=== PATIENT | male | born 1950 | race Caucasian/White ===

== ENCOUNTER 2018-03-16 18:38 | Emergency (ER) | payer MEDICARE, OTHER ==
[2018-03-16] MEDS ORDERED: Sodium Chloride 0.9% 10 ML Syringe FLUSH PRN (18:58)
[2018-03-16] MEDS ORDERED: Albuterol/Ipratropium 3.0-0.5 MG/3 ML Neb Soln NEB ONE ×2 (18:58→20:08)
[2018-03-16] MEDS ORDERED: Sodium Chloride 0.9% 2.5 ML Syringe FLUSH PRN (18:58)
--- NOTE | 2018-03-16 19:04 | EDM.PDOC ---
ED HPI GENERAL MEDICAL PROBLEM - General Chief Complaint: Respiratory Problem Stated Complaint: PT HAS DIFFICULTY BREATHING Time Seen by Provider: 03/16/18 19:01 Source of Information: Reports: Patient History Limitations: Reports: No Limitations - History of Present Illness INITIAL COMMENTS - FREE TEXT/NARRATIVE: HISTORY AND PHYSICAL: History of present illness: Patient is a 67-year-old male here with complaint of cough and shortness of breath 10 days. He reports he is coughing up green phlegm. He states his chest feels sore from coughing but otherwise denies chest pain. He denies any fevers, chills, nausea, vomiting, diarrhea, abdominal pain, left arm or jaw pain, diaphoresis. He denies any smoking history or history of COPD/asthma Patient is currently satting at 89% on room air, 94% on 3L O2. Past medical history significant for diabetes and hypertension. Review of systems: As per history of present illness and below otherwise all systems reviewed and negative. Past medical history: As per history of present illness and as reviewed below otherwise noncontributory. Surgical history: As per history of present illness and as reviewed below otherwise noncontributory. Social history: No reported history of drug or alcohol abuse. Family history: As per history of present illness and as reviewed below otherwise noncontributory. Physical exam: General: Patient sitting comfortably in no acute distress and nontoxic appearing HEENT: Atraumatic, normocephalic, pupils reactive, negative for conjunctival pallor or scleral icterus, mucous membranes moist, throat clear, neck supple, nontender, trachea midline. No meningeal signs. Lungs: Breath sounds diminished with wheezing throughout all lung ugidry. breath sounds equal bilaterally, chest nontender. Heart: S1S2, regular, negative for clicks, rubs, or overt murmur. Abdomen: Soft, nondistended, nontender. Negative for masses or hepatosplenomegaly. Negative for costovertebral tenderness. Pelvis: Stable nontender. Genitourinary: Deferred. Rectal: Deferred. Extremities: Atraumatic, negative for cords or calf pain. Neurovascular unremarkable. Neuro: Awake, alert, oriented. Cranial nerves II through XII unremarkable. Cerebellum unremarkable. Motor and sensory unremarkable throughout. Exam nonfocal. Notes: Lung sounds significantly improved with second duoneb. Patient is at 92- 94% on 3L. Diagnostics: CBC, CMP, troponin, chest x-ray, EKG, Blood culture x 2, lactic acid Therapeutics: DuoNeb x 2 SoluMedrol 125mg IM 750mg Levaquin IV Prescriptions: Impression: Pneumonia, hypoxia Plan: Transferred to [facility] per Dr. Starks. Definitive disposition and diagnosis as appropriate pending reevaluation and review of above. - Related Data Allergies Allergy/AdvReac Type Severity Reaction Status Date / Time atorvastatin calcium Allergy Hives Verified 03/16/18 18:47 [From Lipitor] cefazolin sodium [From Ancef] Allergy Hives Verified 03/16/18 18:47 latex Allergy Rash Verified 03/16/18 18:47 Home Meds: Home Meds Ascorbic Acid/Bioflavonoids [Vit C-Bioflavonoids ] 1,000 mg PO QAM 06/25/14 [ History] Aspirin [[place] Chewable Aspirin] 81 mg PO QAM 06/25/14 [History] Fenofibrate Nanocrystallized [Fenofibrate] 145 mg PO BEDTIME 06/25/14 [History] Fish Oil/[place]-3 Fatty Acids [Fish Oil] 1,200 mg PO QAM 06/25/14 [History] Hydrochlorothiazide/Lisinopril [Lisinopril/HCTZ 20-12.5 MG] 1 tab PO QAM [History] amLODIPine Besylate [Amlodipine Besylate] 10 mg PO QAM 06/25/14 [History] metFORMIN [Glucophage] 1,000 mg PO BID 06/25/14 [History] Insulin Detemir [Levemir Flextouch] 36 units SUBCUT BEDTIME 06/18/16 [History] Multivitamin [Multivitamins] 1 tab PO DAILY 06/18/16 [History] Rosuvastatin Calcium 20 mg PO DAILY 06/18/16 [History] Past Medical History HEENT History: Reports: Impaired Vision Cardiovascular History: Reports: High Cholesterol, Hypertension Respiratory History: Reports: Sleep Apnea Other Respiratory History: uses BPAP Musculoskeletal History: Reports: Back Pain, Chronic Endocrine/Metabolic History: Reports: Diabetes, Type II, Obesity/BMI 30+ Hematologic History: Reports: Blood Transfusion(s) Other Hematologic History: blood transfusion following nose bleed at 10 yrs old - Infectious Disease History Infectious Disease History: Reports: Chicken Pox, Measles, Mumps - Past Surgical History Head Surgeries/Procedures: Reports: None HEENT Surgical History: Reports: Cataract Surgery, Tonsillectomy Musculoskeletal Surgical History: Reports: Arthroscopic Knee Social & Family History - Family History Family Medical History: Noncontributory - Tobacco Use Smoking Status *Q: Never Smoker Second Hand Smoke Exposure: No - Caffeine Use Caffeine Use: Reports: None - Recreational Drug Use Recreational Drug Use: No ED ROS GENERAL - Review of Systems Review Of Systems: ROS reveals no pertinent complaints other than HPI. ED EXAM, GENERAL - Physical Exam Exam: See Below (see Dictation) Course - Vital Signs Last Recorded V/S: Last Vital Signs Temp 36.9 C 03/16/18 18:53 Pulse 127 H 03/16/18 18:53 Resp 20 03/16/18 18:53 BP 158/87 H 03/16/18 18:53 Pulse Ox 89 L 03/16/18 18:53 - Orders/Labs/Meds Orders: Active Orders 24 hr Category Date Time Status EKG Documentation Completion [RC] STAT Care 03/16/18 18:53 Active RT Aerosol Therapy [RC] ASDIRECTED Care 03/16/18 18:58 Active RT Aerosol Therapy [RC] ASDIRECTED Care 03/16/18 20:08 Active Chest 1V Frontal [CR] Stat Exams 03/16/18 18:53 Taken CULTURE BLOOD [BC] Stat Lab 03/16/18 21:58 Ordered CULTURE BLOOD [BC] Stat Lab 03/16/18 21:58 Ordered LACTATE WITH REFLEX [BG] Stat Lab 03/16/18 21:58 Ordered Levofloxacin/Dextrose 5%-Water [Levaquin in D5W 750 MG/ Med 03/16/18 21:59 Ordered 150 ML] 750 mg Premix Bag 1 bag IV ONETIME Sodium Chloride 0.9% [Saline Flush] Med 03/16/18 18:58 Active 10 ml FLUSH ASDIRECTED PRN Sodium Chloride 0.9% [Saline Flush] Med 03/16/18 18:58 Active 2.5 ml FLUSH ASDIRECTED PRN Blood Culture x2 Reflex Set [OM.PC] Stat Oth 03/16/18 21:58 Ordered Saline Lock Insert [OM.PC] Stat Oth 03/16/18 18:58 Ordered Medication Orders Levofloxacin/Dextrose 750 mg/ (Premix) 150 mls @ 100 mls/hr IV ONETIME ONE Stop: 03/16/18 23:28 Sodium Chloride (Saline Flush) 10 ml FLUSH ASDIRECTED PRN PRN Reason: Keep Vein Open Last Admin: 03/16/18 20:09 Dose: 10 ml Sodium Chloride (Saline Flush) 2.5 ml FLUSH ASDIRECTED PRN PRN Reason: Keep Vein Open Last Admin: 03/16/18 20:09 Dose: 2.5 ml Labs: Laboratory Tests 03/16/18 03/16/18 Range/Units 19:01 19:01 WBC 7.48 (4.0-11.0) K/uL RBC 4.49 L (4.50-5.90) M/uL Hgb 14.5 (13.0-17.0) g/dL Hct 41.3 (38.0-50.0) % MCV 92.0 (80.0-98.0) fL MCH 32.3 H (27.0-32.0) pg MCHC 35.1 (31.0-37.0) g/dL RDW Std Deviation 47.1 (28.0-62.0) fl RDW Coeff of Chitra 14 (11.0-15.0) % Plt Count 187 (150-400) K/uL MPV 9.50 (7.40-12.00) fL Neut % (Auto) 75.3 (48.0-80.0) % Lymph % (Auto) 13.0 L (16.0-40.0) % [place] % (Auto) 11.6 (0.0-15.0) % Eos % (Auto) 0.0 (0.0-7.0) % Baso % (Auto) 0.1 (0.0-1.5) % Neut # (Auto) 5.6 (1.4-5.7) K/uL Lymph # (Auto) 1.0 (0.6-2.4) K/uL [place] # (Auto) 0.9 H (0.0-0.8) K/uL Eos # (Auto) 0.0 (0.0-0.7) K/uL Baso # (Auto) 0.0 (0.0-0.1) K/uL Nucleated RBC % 0.0 /100WBC Nucleated RBCs # 0 K/uL Sodium 136 (136-148) mmol/L Potassium 4.3 (3.5-5.1) mmol/L Chloride 98 (98-107) mmol/L Carbon Dioxide 26.5 (21.0-32.0) mmol/L BUN 17 (7.0-18.0) mg/dL Creatinine 1.5 H (0.8-1.3) mg/dL Est Cr Clr Drug Dosing 50.02 mL/min Estimated GFR (MDRD) 46.8 ml/min Glucose 229 H (74-106) mg/dL Calcium 9.6 (8.5-10.1) mg/dL Total Bilirubin 0.7 (0.2-1.0) mg/dL AST 64 H (15-37) IU/L ALT 44 (14-63) IU/L Alkaline Phosphatase 29 L (46-116) U/L Troponin I < 0.050 (0.000-0.056) ng/mL Total Protein 7.9 (6.4-8.2) g/dL Albumin 3.6 (3.4-5.0) g/dL Globulin 4.3 H (2.0-3.5) g/dL Albumin/Globulin Ratio 0.8 L (1.3-2.8) Meds: Medications Generic Name Dose Route Start Last Admin Trade Name Freq PRN Reason Stop Dose Admin Levofloxacin/Dextrose 750 mg/ 150 mls @ 100 mls/hr 03/16/18 21:59 Premix IV 03/16/18 23:28 ONETIME ONE Sodium Chloride 10 ml 03/16/18 18:58 03/16/18 20:09 Saline Flush FLUSH 10 ml ASDIRECTED PRN Administration Keep Vein Open Sodium Chloride 2.5 ml 03/16/18 18:58 03/16/18 20:09 Saline Flush FLUSH 2.5 ml ASDIRECTED PRN Administration Keep Vein Open Discontinued Medications Generic Name Dose Route Start Last Admin Trade Name Freq PRN Reason Stop Dose Admin Albuterol/Ipratropium 3 ml 03/16/18 18:58 03/16/18 19:00 Duoneb 3.0-0.5 Mg/3 Ml NEB 03/16/18 18:59 3 ml ONETIME ONE Administration Albuterol/Ipratropium 3 ml 03/16/18 20:08 03/16/18 20:26 Duoneb 3.0-0.5 Mg/3 Ml NEB 03/16/18 20:09 3 ml ONETIME ONE Administration Levofloxacin 750 mg 03/16/18 21:46 Levaquin PO 03/16/18 21:47 ONETIME ONE Methylprednisolone Sodium Succinate 125 mg 03/16/18 19:23 03/16/18 20:07 Solu-Medrol IM 03/16/18 19:24 125 mg ONETIME ONE Administration Departure - Departure Time of Disposition: 22:04 Disposition: DC/Tfer to Acute Hospital 02 Condition: Good Clinical Impression: Pneumonia - Discharge Information Referrals: PCP,None [Primary Care Provider] - Forms: ED Department Discharge - My Orders Last 24 Hours: My Active Orders 03/16/18 18:53 EKG Documentation Completion [RC] STAT Chest 1V Frontal [CR] Stat 03/16/18 18:58 RT Aerosol Therapy [RC] ASDIRECTED Sodium Chloride 0.9% [Saline Flush] 10 ml FLUSH ASDIRECTED PRN Sodium Chloride 0.9% [Saline Flush] 2.5 ml FLUSH ASDIRECTED PRN Saline Lock Insert [OM.PC] Stat 03/16/18 20:08 RT Aerosol Therapy [RC] ASDIRECTED 03/16/18 21:58 CULTURE BLOOD [BC] Stat CULTURE BLOOD [BC] Stat LACTATE WITH REFLEX [BG] Stat Blood Culture x2 Reflex Set [OM.PC] Stat 03/16/18 21:59 Levofloxacin/Dextrose 5%-Water [Levaquin in D5W 750 MG/150 ML] 750 mg Premix Bag 1 bag IV ONETIME - Assessment/Plan Last 24 Hours: My Active Orders 03/16/18 18:53 EKG Documentation Completion [RC] STAT Chest 1V Frontal [CR] Stat 03/16/18 18:58 RT Aerosol Therapy [RC] ASDIRECTED Sodium Chloride 0.9% [Saline Flush] 10 ml FLUSH ASDIRECTED PRN Sodium Chloride 0.9% [Saline Flush] 2.5 ml FLUSH ASDIRECTED PRN Saline Lock Insert [OM.PC] Stat 03/16/18 20:08 RT Aerosol Therapy [RC] ASDIRECTED 03/16/18 21:58 CULTURE BLOOD [BC] Stat CULTURE BLOOD [BC] Stat LACTATE WITH REFLEX [BG] Stat Blood Culture x2 Reflex Set [OM.PC] Stat 03/16/18 21:59 Levofloxacin/Dextrose 5%-Water [Levaquin in D5W 750 MG/150 ML] 750 mg Premix Bag 1 bag IV ONETIME
[2018-03-16 19:12] VITALS: BP 158/87
[2018-03-16] MEDS ORDERED: methylPREDNISolone Sodium Succinate 125 MG/2 ML SDV IM ONE (19:23)
[2018-03-16 19:44] LABS: CHLORIDE,CL 98 mmol/L (98-107); SODIUM,NA 136 mmol/L (136-148)
[2018-03-16] MEDS ORDERED: Levofloxacin 500 MG Tab PO ONE (21:46)
[2018-03-16] MEDS ORDERED: Levofloxacin/Dextrose 5%-Water 750 MG in Premix Bag 1 BAG IV ONE (21:59)
--- NOTE | 2018-03-17 10:32 | CR ---
EXAM DATE: 03/16/18 PATIENT'S AGE: 67 Patient: LARISSA CORNEJO Facility: [place], [place] Site . Site : 1950 Study: XRay Chest [id number]/24/2018 8:29:45 PM Ordering Physician: Doctor Estes Final Report: HISTORY: Chest pain and shortness of breath. COMPARISON: 06/25/2014 FINDINGS: A portable erect AP view of the chest was obtained at 2000 hours. There is new moderate rounded infiltrate in the lateral right lung base, consistent with either right middle or right lower lobe pneumonia. No pleural effusion is evident. The rest of the chest remains clear. The heart remains normal in size. The mediastinum is normal in appearance. The osseous structures are normal in appearance for the patient`s age. IMPRESSION: NEW MODERATE INFILTRATE IN THE LATERAL RIGHT LUNG BASE, CONSISTENT WITH RIGHT MIDDLE OR RIGHT LOWER LOBE PNEUMONIA. Dictated by Brian Nguyen MD @ Mar 16 2018 8:59PM (Electronic Signature) Report Signed by Proxy. PAUL
== END 2018-03-16 23:35 ==
LOC: MW.ED 18:38
DX: J18.9 Pneumonia, unspecified organism (principal); I10 Essential (primary) hypertension; E78.00 Pure hypercholesterolemia, unspecified; Z91.040 Latex allergy status; Z79.82 Long term (current) use of aspirin; Z79.899 Other long term (current) drug therapy
CPT/HCPCS: 36415; 71045; 80053; 83605; 84484; 85025; 87040; 93005; 96365; 96372; 99285; J1956; J2930; 99283; J7620-GY

== ENCOUNTER 2018-08-10 20:36 | Emergency (ER) | payer MEDICARE, OTHER ==
[2018-08-10 21:18] VITALS: BP 127/101
--- NOTE | 2018-08-10 21:19 | EDM.PDOC ---
ED HPI GENERAL MEDICAL PROBLEM - General Chief Complaint: ENT Problem Stated Complaint: PT HAS EAR INFECTION AND SORE THROAT Time Seen by Provider: 08/10/18 21:12 Source of Information: Reports: Patient History Limitations: Reports: No Limitations - History of Present Illness INITIAL COMMENTS - FREE TEXT/NARRATIVE: HISTORY AND PHYSICAL: History of present illness: Patient is a 67-year-old male who presents to the emergency room with complaints of bilateral ear pain and sore throat 2-3 days. He denies any fever , chills, chest pain, shortness of breath or cough. Denies any abdominal pain, nausea, vomiting, diarrhea or constipation. He has been eating and drinking appropriately. Has no other concerns or complaints at this time. Review of systems: As per history of present illness and below otherwise all systems reviewed and negative. Past medical history: As per history of present illness and as reviewed below otherwise noncontributory. Surgical history: As per history of present illness and as reviewed below otherwise noncontributory. Social history: See social history for further information Family history: As per history of present illness and as reviewed below otherwise noncontributory. Physical exam: General: Well-developed and well-nourished 67-year-old male. Alert and oriented. Nontoxic appearing and in no acute distress HEENT: Atraumatic, normocephalic, pupils equal and reactive bilaterally, negative for conjunctival pallor or scleral icterus, mucous membranes moist, TMs erythematous with dull light reflex and no bulging, mild erythema to the posterior oropharynx without exudate, neck supple, nontender, trachea midline. No drooling or trismus noted. No meningeal signs. No hot potato voice noted. Lungs: Clear to auscultation, breath sounds equal bilaterally, chest nontender. Heart: S1S2, regular rate and rhythm without overt murmur Abdomen: Soft, nondistended, nontender. Negative for masses or hepatosplenomegaly. Negative for costovertebral tenderness. Pelvis: Stable nontender. Genitourinary: Deferred. Rectal: Deferred. Skin: Intact, warm, dry. No lesions or rashes noted. Extremities: Atraumatic, negative for cords or calf pain. Neurovascular unremarkable. Neuro: Awake, alert, oriented. Cranial nerves II through XII unremarkable. Cerebellum unremarkable. Motor and sensory unremarkable throughout. Exam nonfocal. Notes: We'll treat the otitis media with Augmentin. Supportive care measures were reviewed and discussed. Voices understanding and is agreeable to plan of care. Denies any further questions or concerns at this time. Diagnostics: None Therapeutics: None Prescription: Augmentin Impression: Otitis media, bilateral Plan: 1. Please use Tylenol and/or Ibuprofen as needed for pain and fever management. 2. Take the antibiotic as prescribed Get plenty of Rest. Encourage fluids to prevent dehydration. 3. Please follow up with your primary care provider. Return to the ED as needed as discussed. Definitive disposition and diagnosis as appropriate pending reevaluation and review of above. - Related Data Allergies Allergy/AdvReac Type Severity Reaction Status Date / Time atorvastatin calcium Allergy Hives Verified 08/10/18 21:18 [From Lipitor] cefazolin sodium [From Ancef] Allergy Hives Verified 08/10/18 21:18 latex Allergy Rash Verified 08/10/18 21:18 Home Meds: Home Meds Ascorbic Acid/Bioflavonoids [Vit C-Bioflavonoids SA] 1,000 mg PO QAM 06/25/14 [ History] Aspirin [[place] Chewable Aspirin] 81 mg PO QAM 06/25/14 [History] Fenofibrate Nanocrystallized [Fenofibrate] 145 mg PO BEDTIME 06/25/14 [History] Fish Oil/[place]-3 Fatty Acids [Fish Oil] 1,200 mg PO QAM 06/25/14 [History] Hydrochlorothiazide/Lisinopril [Lisinopril/HCTZ 20-12.5 MG] 1 tab PO QAM [History] amLODIPine Besylate [Amlodipine Besylate] 10 mg PO QAM 06/25/14 [History] metFORMIN [Glucophage] 1,000 mg PO BID 06/25/14 [History] Insulin Detemir [Levemir Flextouch] 36 units SUBCUT BEDTIME 06/18/16 [History] Multivitamin [Multivitamins] 1 tab PO DAILY 06/18/16 [History] Rosuvastatin Calcium 20 mg PO DAILY 06/18/16 [History] Past Medical History HEENT History: Reports: Impaired Vision Cardiovascular History: Reports: High Cholesterol, Hypertension Respiratory History: Reports: Sleep Apnea Other Respiratory History: uses BPAP Musculoskeletal History: Reports: Back Pain, Chronic Endocrine/Metabolic History: Reports: Diabetes, Type II, Obesity/BMI 30+ Hematologic History: Reports: Blood Transfusion(s) Other Hematologic History: blood transfusion following nose bleed at 10 yrs old - Infectious Disease History Infectious Disease History: Reports: Chicken Pox, Measles, Mumps - Past Surgical History Head Surgeries/Procedures: Reports: None HEENT Surgical History: Reports: Cataract Surgery, Tonsillectomy Musculoskeletal Surgical History: Reports: Arthroscopic Knee Social & Family History - Family History Family Medical History: Noncontributory - Caffeine Use Caffeine Use: Reports: None ED ROS ENT - Review of Systems Review Of Systems: ROS reveals no pertinent complaints other than HPI. ED EXAM, ENT - Physical Exam Exam: See Below (See dictation) Course - Vital Signs Last Recorded V/S: Last Vital Signs Temp 97 F 08/10/18 21:10 Pulse 135 H 08/10/18 21:10 Resp 18 08/10/18 21:10 BP 127/101 H 08/10/18 21:10 Pulse Ox 95 08/10/18 21:10 Departure - Departure Time of Disposition: 21:18 Disposition: Home, Self-Care 01 Clinical Impression: Otitis media Qualifiers: Otitis media type: unspecified Laterality: bilateral Qualified Code(s): H66.93 - Otitis media, unspecified, bilateral - Discharge Information Instructions: Otitis Media, Adult, [id number] Referrals: Wei Page MD [Primary Care Provider] - Forms: ED Department Discharge Additional Instructions: The following information is given to patients seen in the emergency department who are being discharged to home. This information is to outline your options for follow-up care. We provide all patients seen in our emergency department with a follow-up referral. The need for follow-up, as well as the timing and circumstances, are variable depending upon the specifics of your emergency department visit. If you don't have a primary care physician on staff, we will provide you with a referral. We always advise you to contact your personal physician following an emergency department visit to inform them of the circumstance of the visit and for follow-up with them and/or the need for any referrals to a consulting specialist. The emergency department will also refer you to a specialist when appropriate. This referral assures that you have the opportunity for follow-up care with a specialist. All of these measure are taken in an effort to provide you with optimal care, which includes your follow-up. Under all circumstances we always encourage you to contact your private physician who remains a resource for coordinating your care. When calling for follow-up care, please make the office aware that this follow-up is from your recent emergency room visit. If for any reason you are refused follow-up, please contact the Emergency Department at and asked to speak to the emergency department charge nurse. Primary Care [address] [place] [id number] [facility] [address] [place] [id number] 1. Please use Tylenol and/or Ibuprofen as needed for pain and fever management. 2. Take the antibiotic as prescribed Get plenty of Rest. Encourage fluids to prevent dehydration. 3. Please follow up with your primary care provider. Return to the ED as needed as discussed.
== END 2018-08-10 21:25 | disposition home or self-care (01) ==
LOC: MW.ED 20:36
DX: H66.93 Otitis media, unspecified, bilateral (principal); I10 Essential (primary) hypertension; E11.9 Type 2 diabetes mellitus without complications; E66.9 Obesity, unspecified; Z91.040 Latex allergy status; Z88.1 Allergy status to other antibiotic agents; Z79.4 Long term (current) use of insulin; Z79.899 Other long term (current) drug therapy; Z98.49 Cataract extraction status, unspecified eye; Z98.890 Other specified postprocedural states
CPT/HCPCS: 99282; 99283

== ENCOUNTER 2020-01-13 04:24 | Emergency (ER) | payer MEDICARE, OTHER ==
[2020-01-13] MEDS ORDERED: Diazepam 5 MG Tab PO ONE (04:55)
[2020-01-13] MEDS ORDERED: traMADol 50 MG Tab PO ONE (04:56)
[2020-01-13] MEDS ORDERED: Acetaminophen 500 MG Tab PO ONE (04:56)
--- NOTE | 2020-01-13 05:01 | EDM.PDOC ---
ED HPI GENERAL MEDICAL PROBLEM - General Chief Complaint: Back Pain or Injury Stated Complaint: BACK PAIN Time Seen by Provider: 01/13/20 04:44 - History of Present Illness INITIAL COMMENTS - FREE TEXT/NARRATIVE: History of present illness: [] Patient presents with low back pain pain began on Friday no injuries no fever no heavy lifting he states he has occasional low back issues he has been taking Motrin off and on for the past several days with no relief he denies any difficulty with urination movement aches or worse being still makes it better. Review of systems: As per history of present illness and below otherwise all systems reviewed and negative. Past medical history: As per history of present illness and as reviewed below otherwise noncontributory. Surgical history: As per history of present illness and as reviewed below otherwise noncontributory. Social history: No reported history of drug or alcohol abuse. Family history: As per history of present illness and as reviewed below otherwise nonco ntributory. Physical exam: HEENT: Atraumatic, normocephalic, pupils reactive, negative for conjunctival pallor or scleral icterus, mucous membranes moist, throat clear, neck supple, nontender, trachea midline. Lungs: Clear to auscultation, breath sounds equal bilaterally, chest nontender. Heart: S1S2, regular, negative for clicks, rubs, or JVD. Abdomen: Soft, nondistended, nontender. Negative for masses or hepatosplenomegaly. Negative for costovertebral tenderness. Pelvis: Stable nontender. Genitourinary: Deferred. Rectal: Deferred. Extremities: Atraumatic, negative for cords or calf pain. Neurovascular unremarkable. Neuro: Awake, alert, oriented. Cranial nerves II through XII unremarkable. Cerebellum unremarkable. Motor and sensory unremarkable throughout. Exam nonfocal. There is no saddle anesthesia great toe strength is 5 out of 5 Back: There is no midline tenderness there is spasm and tenderness to the lateral musculature at L5 on the left as well as the left SI joint. Diagnostics: [] Therapeutics: [] Impression: Low back pain [] Plan: We will try some medication see for him more comfortable and reassess him. [] Definitive disposition and diagnosis as appropriate pending reevaluation and review of above. 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 CHIEF: Reports: NSAIDS lower back Pain Score (Numeric/FACES): 10 - Related Data Allergies Allergy/AdvReac Type Severity Reaction Status Date / Time atorvastatin calcium Allergy Hives Verified 01/13/20 04:45 [From Lipitor] cefazolin sodium [From Ancef] Allergy Hives Verified 01/13/20 04:45 latex Allergy Rash Verified 01/13/20 04:45 Home Meds: Home Meds Ascorbic Acid/Bioflavonoids [Vit C-Bioflavonoids SA] 1,000 mg PO QAM 06/25/14 [History] Aspirin [[place] Chewable Aspirin] 81 mg PO QAM 06/25/14 [History] Fenofibrate Nanocrystallized [Fenofibrate] 145 mg PO BEDTIME 06/25/14 [History] Fish Oil/[place]-3 Fatty Acids [Fish Oil] 1,200 mg PO QAM 06/25/14 [History] Hydrochlorothiazide/Lisinopril [Lisinopril/HCTZ 20-12.5 MG] 1 tab PO QAM 06/25/14 [History] amLODIPine Besylate [Amlodipine Besylate] 10 mg PO QAM 06/25/14 [History] metFORMIN [Glucophage] 1,000 mg PO BID 06/25/14 [History] Insulin Detemir [Levemir Flextouch] 36 units SUBCUT BEDTIME 06/18/16 [History] Multivitamin [Multivitamins] 1 tab PO DAILY 06/18/16 [History] Rosuvastatin Calcium 20 mg PO DAILY 06/18/16 [History] Cyclobenzaprine [Flexeril] 10 mg PO TID #30 tab 01/13/20 [Rx] predniSONE 60 mg PO WITHBREAKFAST 5 Days #15 tab 01/13/20 [Rx] traMADol HCl [Tramadol HCl] 50 mg PO TID #15 tablet 01/13/20 [Rx] Past Medical History HEENT History: Reports: Impaired Vision Cardiovascular History: Reports: High Cholesterol, Hypertension Respiratory History: Reports: Sleep Apnea Other Respiratory History: uses BPAP Gastrointestinal History: Reports: None Genitourinary History: Reports: None Musculoskeletal History: Reports: Back Pain, Chronic Neurological History: Reports: None Psychiatric History: Reports: None Endocrine/Metabolic History: Reports: Diabetes, Type II, Obesity/BMI 30+ Hematologic History: Reports: Blood Transfusion(s) Other Hematologic History: blood transfusion following nose bleed at 10 yrs old Immunologic History: Reports: None Oncologic (Cancer) History: Reports: None Dermatologic History: Reports: None - Infectious Disease History Infectious Disease History: Reports: None - Past Surgical History Head Surgeries/Procedures: Reports: None HEENT Surgical History: Reports: Cataract Surgery, Tonsillectomy Musculoskeletal Surgical History: Reports: Arthroscopic Knee Social & Family History - Family History Family Medical History: Noncontributory - Tobacco Use Smoking Status *Q: Never Smoker - Caffeine Use Caffeine Use: Reports: None - Recreational Drug Use Recreational Drug Use: No ED ROS GENERAL - Review of Systems Review Of Systems: See Below ED EXAM, GENERAL - Physical Exam Exam: See Below Course - Vital Signs Text/Narrative:: Patient is feeling somewhat better after medications. There is no evidence of a spinal cord or cauda equina impingement. He will be discharged home on tramadol prednisone and Flexeril. Follow-up with primary care Last Recorded V/S: Last Vital Signs Temp 36.1 C 01/13/20 04:45 Pulse 108 H 01/13/20 04:45 Resp 18 01/13/20 04:45 BP 130/78 01/13/20 04:45 Pulse Ox 95 01/13/20 04:45 - Orders/Labs/Meds Meds: Medications Discontinued Medications Generic Name Dose Route Start Last Admin Trade Name Freq PRN Reason Stop Dose Admin Acetaminophen 1,000 mg 01/13/20 04:56 01/13/20 05:03 Tylenol Extra Strength PO 01/13/20 04:57 1,000 mg ONETIME ONE Administration Diazepam 5 mg 01/13/20 04:55 01/13/20 05:03 Valium. PO 01/13/20 04:56 5 mg ONETIME ONE Administration Tramadol HCl 100 mg 01/13/20 04:56 01/13/20 05:03 Ultram PO 01/13/20 04:57 100 mg ONETIME ONE Administration Departure - Departure Time of Disposition: 06:01 Disposition: Home, Self-Care 01 Condition: Good Clinical Impression: Low back pain - Discharge Information *PRESCRIPTION DRUG MONITORING PROGRAM REVIEWED*: Not Applicable *COPY OF PRESCRIPTION DRUG MONITORING REPORT IN PATIENT ERNESTO: Not Applicable Instructions: Acute Back Pain, Adult Referrals: Wei Page MD [Primary Care Provider] - Forms: ED Department Discharge Additional Instructions: The following information is given to patients seen in the emergency department who are being discharged to home. This information is to outline your options for follow-up care. We provide all patients seen in our emergency department with a follow-up referral. The need for follow-up, as well as the timing and circumstances, are variable depending upon the specifics of your emergency department visit. If you don't have a primary care physician on staff, we will provide you with a referral. We always advise you to contact your personal physician following an emergency department visit to inform them of the circumstance of the visit and for follow-up with them and/or the need for any referrals to a consulting specialist. The emergency department will also refer you to a specialist when appropriate. This referral assures that you have the opportunity for follow-up care with a specialist. All of these measure are taken in an effort to provide you with optimal care, which includes your follow-up. Under all circumstances we always encourage you to contact your private physician who remains a resource for coordinating your care. When calling for follow-up care, please make the office aware that this follow-up is from your recent emergency room visit. If for any reason you are refused follow-up, please contact the [facility] Emergency Department at and asked to speak to the emergency department charge nurse. Sepsis Event Note (ED) - Evaluation Sepsis Screening Result: No Definite Risk - Focused Exam Vital Signs: Vital Signs Temp Pulse Resp BP Pulse Ox 01/13/20 04:45 36.1 C 108 H 18 130/78 95
[2020-01-13 06:30] VITALS: BP 120/69; PULSE 96
== END 2020-01-13 06:15 | disposition home or self-care (01) ==
LOC: MW.ED 04:24
DX: M54.5 Low back pain (principal); E11.9 Type 2 diabetes mellitus without complications; E66.9 Obesity, unspecified; Z68.33 Body mass index [BMI] 33.0-33.9, adult; E78.00 Pure hypercholesterolemia, unspecified; I10 Essential (primary) hypertension; Z88.8 Allergy status to other drugs, medicaments and biological substances; Z88.1 Allergy status to other antibiotic agents; Z91.040 Latex allergy status; Z79.82 Long term (current) use of aspirin; Z79.4 Long term (current) use of insulin; Z79.899 Other long term (current) drug therapy
CPT/HCPCS: 99283; A9270

== ENCOUNTER 2020-01-20 16:25 | Emergency (ER) | payer MEDICARE, OTHER ==
[2020-01-20] MEDS ORDERED: Sodium Chloride 0.9% 2.5 ML Syringe FLUSH PRN (16:46)
[2020-01-20] MEDS ORDERED: Sodium Chloride 0.9% 10 ML Syringe FLUSH PRN (16:46)
--- NOTE | 2020-01-20 16:48 | EDM.PDOC ---
ED HPI GENERAL MEDICAL PROBLEM - General Chief Complaint: Genitourinary Problem Stated Complaint: URINARY TROUBLE Time Seen by Provider: 01/20/20 16:35 Source of Information: Reports: Patient History Limitations: Reports: No Limitations - History of Present Illness INITIAL COMMENTS - FREE TEXT/NARRATIVE: HISTORY AND PHYSICAL: History of present illness: Patient is a 69-year-old male who presents to the emergency room with complaints of urinary retention and generalized lower abdominal pain that started this morning. He was seen in the emergency room last week for some left low back pain which he was prescribed Flexeril, prednisone and tramadol. He states his back pain has improved, although he is now wondering if these medications would cause his symptoms today. He does have a history of elevated PSA and states he will get occasional bladder infections which require Dr. Ellis to prescribe a short course of oral antibiotics. Denies any history of kidney stone or BPH. Patient denies any fever, chills, headache, change in vision, syncope or near syncope. Denies any chest pain, back pain, shortness of breath or cough. Denies any nausea, vomiting, diarrhea, constipation or dysuria. Denies any testicular pain, redness or swelling. Has not noted any blood in urine or stool. Patient has been eating and drinking appropriately. Review of systems: As per history of present illness and below otherwise all systems reviewed and negative. Past medical history: As per history of present illness and as reviewed below otherwise noncontributory. Surgical history: As per history of present illness and as reviewed below otherwise noncontributory. Social history: See social history for further information Family history: As per history of present illness and as reviewed below otherwise noncontributory. Physical exam: General: Well-developed and well-nourished 69-year-old male. Alert and oriented. Nontoxic but anxious appearing and in no acute distress. HEENT: Atraumatic, normocephalic, pupils equal and reactive bilaterally, negative for conjunctival pallor or scleral icterus, mucous membranes moist, TMs normal bilaterally, throat clear, neck supple, nontender, trachea midline. No drooling or trismus noted. No meningeal signs. No hot potato voice noted. Lungs: Clear to auscultation, breath sounds equal bilaterally, chest nontender. Heart: S1S2, regular rate and rhythm without overt murmur Abdomen: Soft, nondistended, nontender. Negative for masses or hepatosplenomegaly. Negative for costovertebral tenderness. Pelvis: Stable nontender. Skin: Intact, warm, dry. No lesions or rashes noted. Extremities: Atraumatic, moves all extremities per self without difficulty or deficits, negative for cords or calf pain. Neurovascular unremarkable. Neuro: Awake, alert, oriented. Cranial nerves II through XII unremarkable. Cerebellum unremarkable. Motor and sensory unremarkable throughout. Exam nonfocal. Notes: Due to patient appearing anxious and tachycardic I will be doing some basic lab work. CT of abdomen and pelvis to rule out obstructing stone. He shows an enlarged prostate gland measuring 7.9 x 6.3 cm. No inflammatory changes. No stone is noted. I did call Dr. Ellis our urologist concreter. He would like the catheter left in place and he will see the patient on Friday. Caleb does not want any medications rx at this time. I did share this information with the patient. He is aware and agreeable to plan of care. Patient's vital signs have improved, pulse is slightly elevated - he states he "normally runs high. He does not want me to work this up further or receive IV fluids. Requesting discharge. We discussed signs and symptoms that would prompt him to return to the emergency room. Follow-up and supportive care measures were reviewed and discussed. Voices understanding and is agreeable to plan of care. Denies any further questions or concerns at this time. Diagnostics: CBC, CMP, lactate, UA, bladder scanner, CT abdomen and pelvis Therapeutics: SL Prescription: None Impression: Urinary retention Plan: 1. Your lab work was within normal limits today. The CT did show an enlarged prostate gland. I did speak with Dr. Ellis, the urologist, who recommended that the Thomas catheter be left in place. He would like you to call his office tomorrow to set up an appointment time, he states he will see you on Friday. 2. Make sure you are emptying the Thomas catheter and doing catheter care as directed. 3. If your symptoms should worsen, new symptoms develop or any of the signs and symptoms we discussed should arise please return to the emergency room or call 911 (if needed). Definitive disposition and diagnosis as appropriate pending reevaluation and review of above. Onset: Today lower abdomen Pain Score (Numeric/FACES): 7 - Related Data Allergies Allergy/AdvReac Type Severity Reaction Status Date / Time atorvastatin calcium Allergy Hives Verified 01/20/20 16:41 [From Lipitor] cefazolin sodium [From Ancef] Allergy Hives Verified 01/20/20 16:41 latex Allergy Rash Verified 01/20/20 16:41 Home Meds: Home Meds Ascorbic Acid/Bioflavonoids [Vit C-Bioflavonoids SA] 1,000 mg PO QAM 06/25/14 [History] Aspirin [[place] Chewable Aspirin] 81 mg PO QAM 06/25/14 [History] Fenofibrate Nanocrystallized [Fenofibrate] 145 mg PO BEDTIME 06/25/14 [History] Fish Oil/[place]-3 Fatty Acids [Fish Oil] 1,200 mg PO QAM 06/25/14 [History] Hydrochlorothiazide/Lisinopril [Lisinopril/HCTZ 20-12.5 MG] 1 tab PO QAM 06/25/14 [History] amLODIPine Besylate [Amlodipine Besylate] 10 mg PO QAM 06/25/14 [History] metFORMIN [Glucophage] 1,000 mg PO BID 06/25/14 [History] Insulin Detemir [Levemir Flextouch] 36 units SUBCUT BEDTIME 06/18/16 [History] Multivitamin [Multivitamins] 1 tab PO DAILY 06/18/16 [History] Rosuvastatin Calcium 20 mg PO DAILY 06/18/16 [History] Cyclobenzaprine [Flexeril] 10 mg PO TID #30 tab 01/13/20 [Rx] predniSONE 60 mg PO WITHBREAKFAST 5 Days #15 tab 01/13/20 [Rx] traMADol HCl [Tramadol HCl] 50 mg PO TID #15 tablet 01/13/20 [Rx] Past Medical History HEENT History: Reports: Impaired Vision Cardiovascular History: Reports: High Cholesterol, Hypertension Respiratory History: Reports: Sleep Apnea Other Respiratory History: uses BPAP Gastrointestinal History: Reports: None Genitourinary History: Reports: None Musculoskeletal History: Reports: Back Pain, Chronic Neurological History: Reports: None Psychiatric History: Reports: None Endocrine/Metabolic History: Reports: Diabetes, Type II, Obesity/BMI 30+ Hematologic History: Reports: Blood Transfusion(s) Other Hematologic History: blood transfusion following nose bleed at 10 yrs old Immunologic History: Reports: None Oncologic (Cancer) History: Reports: None Dermatologic History: Reports: None - Infectious Disease History Infectious Disease History: Reports: None - Past Surgical History Head Surgeries/Procedures: Reports: None HEENT Surgical History: Reports: Cataract Surgery, Tonsillectomy Musculoskeletal Surgical History: Reports: Arthroscopic Knee Social & Family History - Family History Family Medical History: Noncontributory - Caffeine Use Caffeine Use: Reports: None ED ROS GENERAL - Review of Systems Review Of Systems: Comprehensive ROS is negative, except as noted in HPI. ED EXAM, GI/ABD - Physical Exam Exam: See Below (See dictation) Course - Vital Signs Last Recorded V/S: Last Vital Signs Temp 96.1 F L 01/20/20 16:36 Pulse 125 H 01/20/20 16:36 Resp 19 01/20/20 16:36 BP 134/85 01/20/20 16:36 Pulse Ox 96 01/20/20 16:36 - Orders/Labs/Meds Orders: Active Orders 24 hr Category Date Time Status Bladder Scan [RC] ASDIRECTED Care 01/20/20 16:43 Active Sodium Chloride 0.9% [Saline Flush] Med 01/20/20 16:46 Active 10 ml FLUSH ASDIRECTED PRN Sodium Chloride 0.9% [Saline Flush] Med 01/20/20 16:46 Active 2.5 ml FLUSH ASDIRECTED PRN Saline Lock Insert [OM.PC] Stat Oth 01/20/20 16:46 Ordered Medication Orders Sodium Chloride (Saline Flush) 10 ml FLUSH ASDIRECTED PRN PRN Reason: Keep Vein Open Sodium Chloride (Saline Flush) 2.5 ml FLUSH ASDIRECTED PRN PRN Reason: Keep Vein Open Labs: Laboratory Tests 01/20/20 01/20/20 01/20/20 Range/Units 17:06 17:06 17:06 WBC 9.44 (4.0-11.0) K/uL RBC 4.87 (4.50-5.90) M/uL Hgb 15.3 (13.0-17.0) g/dL Hct 45.0 (38.0-50.0) % MCV 92.4 (80.0-98.0) fL MCH 31.4 (27.0-32.0) pg MCHC 34.0 (31.0-37.0) g/dL RDW Std Deviation 48.4 (28.0-62.0) fl RDW Coeff of [place]itra 14 (11.0-15.0) % Plt Count 269 (150-400) K/uL MPV 9.50 (7.40-12.00) fL Neut % (Auto) 68.8 (48.0-80.0) % Lymph % (Auto) 21.0 (16.0-40.0) % [place] % (Auto) 9.2 (0.0-15.0) % Eos % (Auto) 1.0 (0.0-7.0) % Baso % (Auto) 0.0 (0.0-1.5) % Neut # (Auto) 6.5 H (1.4-5.7) K/uL Lymph # (Auto) 2.0 (0.6-2.4) K/uL [place] # (Auto) 0.9 H (0.0-0.8) K/uL Eos # (Auto) 0.1 (0.0-0.7) K/uL Baso # (Auto) 0.0 (0.0-0.1) K/uL Nucleated RBC % 0.0 /100WBC Nucleated RBCs # 0 K/uL Lactate 1.4 (0.20-2.00) mmol/L Sodium 138 (136-148) mmol/L Potassium 4.3 (3.5-5.1) mmol/L Chloride 97 L (98-107) mmol/L Carbon Dioxide 28.4 (21.0-32.0) mmol/L BUN 23 H (7.0-18.0) mg/dL Creatinine 1.4 H (0.8-1.3) mg/dL Est Cr Clr Drug Dosing 52.14 mL/min Estimated GFR (MDRD) 50.4 ml/min Glucose 163 H (74-106) mg/dL Calcium 9.7 (8.5-10.1) mg/dL Total Bilirubin 0.8 (0.2-1.0) mg/dL AST 24 (15-37) IU/L ALT 35 (14-63) IU/L Alkaline Phosphatase 33 L (46-116) U/L Total Protein 7.7 (6.4-8.2) g/dL Albumin 4.2 (3.4-5.0) g/dL Globulin 3.5 (2.6-4.0) g/dL Albumin/Globulin Ratio 1.2 (0.9-1.6) Urine Color Urine Appearance Urine pH (5.0-8.0) Ur Specific [place] (1.001-1.035) Urine Protein (NEGATIVE) mg/dL Urine Glucose (UA) (NEGATIVE) mg/dL Urine Ketones (NEGATIVE) mg/dL Urine Occult Blood (NEGATIVE) Urine Nitrite (NEGATIVE) Urine Bilirubin (NEGATIVE) Urine Urobilinogen (<2.0) EU/dL Ur Leukocyte Esterase (NEGATIVE) 01/20/20 Range/Units 17:30 WBC (4.0-11.0) K/uL RBC (4.50-5.90) M/uL Hgb (13.0-17.0) g/dL Hct (38.0-50.0) % MCV (80.0-98.0) fL MCH (27.0-32.0) pg MCHC (31.0-37.0) g/dL RDW Std Deviation (28.0-62.0) fl RDW Coeff of [place] (11.0-15.0) % Plt Count (150-400) K/uL MPV (7.40-12.00) fL Neut % (Auto) (48.0-80.0) % Lymph % (Auto) (16.0-40.0) % [place] % (Auto) (0.0-15.0) % Eos % (Auto) (0.0-7.0) % Baso % (Auto) (0.0-1.5) % Neut # (Auto) (1.4-5.7) K/uL Lymph # (Auto) (0.6-2.4) K/uL [place] # (Auto) (0.0-0.8) K/uL Eos # (Auto) (0.0-0.7) K/uL Baso # (Auto) (0.0-0.1) K/uL Nucleated RBC % /100WBC Nucleated RBCs # K/uL Lactate (0.20-2.00) mmol/L Sodium (136-148) mmol/L Potassium (3.5-5.1) mmol/L Chloride (98-107) mmol/L Carbon Dioxide (21.0-32.0) mmol/L BUN (7.0-18.0) mg/dL Creatinine (0.8-1.3) mg/dL Est Cr Clr Drug Dosing mL/min Estimated GFR (MDRD) ml/min Glucose (74-106) mg/dL Calcium (8.5-10.1) mg/dL Total Bilirubin (0.2-1.0) mg/dL AST (15-37) IU/L ALT (14-63) IU/L Alkaline Phosphatase (46-116) U/L Total Protein (6.4-8.2) g/dL Albumin (3.4-5.0) g/dL Globulin (2.6-4.0) g/dL Albumin/Globulin Ratio (0.9-1.6) Urine Color YELLOW Urine Appearance CLEAR Urine pH 8.0 (5.0-8.0) Ur Specific [place] 1.020 (1.001-1.035) Urine Protein NEGATIVE (NEGATIVE) mg/dL Urine Glucose (UA) NEGATIVE (NEGATIVE) mg/dL Urine Ketones NEGATIVE (NEGATIVE) mg/dL Urine Occult Blood NEGATIVE (NEGATIVE) Urine Nitrite NEGATIVE (NEGATIVE) Urine Bilirubin NEGATIVE (NEGATIVE) Urine Urobilinogen 0.2 (<2.0) EU/dL Ur Leukocyte Esterase NEGATIVE (NEGATIVE) Meds: Medications Generic Name Dose Route Start Last Admin Trade Name Freq PRN Reason Stop Dose Admin Sodium Chloride 10 ml 01/20/20 16:46 Saline Flush FLUSH ASDIRECTED PRN Keep Vein Open Sodium Chloride 2.5 ml 01/20/20 16:46 Saline Flush FLUSH ASDIRECTED PRN Keep Vein Open Departure - Departure Time of Disposition: 17:56 Disposition: Home, Self-Care 01 Clinical Impression: Urinary retention - Discharge Information Referrals: Wei Page MD [Primary Care Provider] - Forms: ED Department Discharge Additional Instructions: The following information is given to patients seen in the emergency department who are being discharged to home. This information is to outline your options for follow-up care. We provide all patients seen in our emergency department with a follow-up referral. The need for follow-up, as well as the timing and circumstances, are variable depending upon the specifics of your emergency department visit. If you don't have a primary care physician on staff, we will provide you with a referral. We always advise you to contact your personal physician following an emergency department visit to inform them of the circumstance of the visit and for follow-up with them and/or the need for any referrals to a consulting specialist. The emergency department will also refer you to a specialist when appropriate. This referral assures that you have the opportunity for follow-up care with a specialist. All of these measure are taken in an effort to provide you with optimal care, which includes your follow-up. Under all circumstances we always encourage you to contact your private physician who remains a resource for coordinating your care. When calling for follow-up care, please make the office aware that this follow-up is from your recent emergency room visit. If for any reason you are refused follow-up, please contact the [facility] Emergency Department at and asked to speak to the emergency department charge nurse. [facility] Specialty Care - Urology [address] [place] [address] Thank you for choosing the [facility] emergency department in [place] for your medical needs today. It was a pleasure caring for you. You were seen in the emergency department for urinary retention. 1. Your lab work was within normal limits today. The CT did show an enlarged prostate gland. I did speak with Dr. Ellis, the urologist, who recommended that the Thomas catheter be left in place. He would like you to call his office tomorrow to set up an appointment time, he states he will see you on Friday. 2. Make sure you are emptying the Thomas catheter and doing catheter care as directed. 3. If your symptoms should worsen, new symptoms develop or any of the signs and symptoms we discussed should arise please return to the emergency room or call 911 (if needed). Sepsis Event Note (ED) - Evaluation Sepsis Screening Result: No Definite Risk - Focused Exam Vital Signs: Vital Signs Temp Pulse Resp BP Pulse Ox 01/20/20 16:36 96.1 F L 125 H 19 134/85 96 - My Orders Last 24 Hours: My Active Orders 01/20/20 16:43 Bladder Scan [RC] ASDIRECTED 01/20/20 16:46 Sodium Chloride 0.9% [Saline Flush] 10 ml FLUSH ASDIRECTED PRN Sodium Chloride 0.9% [Saline Flush] 2.5 ml FLUSH ASDIRECTED PRN Saline Lock Insert [OM.PC] Stat - Assessment/Plan Last 24 Hours: My Active Orders 01/20/20 16:43 Bladder Scan [RC] ASDIRECTED 01/20/20 16:46 Sodium Chloride 0.9% [Saline Flush] 10 ml FLUSH ASDIRECTED PRN Sodium Chloride 0.9% [Saline Flush] 2.5 ml FLUSH ASDIRECTED PRN Saline Lock Insert [OM.PC] Stat
[2020-01-20 17:40] LABS: CARBON DIOXIDE,CO2 28.4 mmol/L (21.0-32.0); POTASSIUM,K 4.3 mmol/L (3.5-5.1)
--- NOTE | 2020-01-20 17:42 | CT ---
CT abdomen and pelvis Technique: Multiple axial sections were obtained from above the dome of the diaphragm inferiorly through the pubic symphysis. Intravenous and oral contrast not utilized. Comparison: No prior abdominal imaging is available. Findings: Visualized lung bases show nothing acute. Liver contains no focal abnormality. Spleen appears within normal limits. Adrenal glands show no nodule. Pancreas shows no abnormality. Kidneys show no hydronephrosis. Small nonobstructing calculus is noted within the lower left kidney. Left kidney also shows a cyst measuring 1.9 cm. Ureters show no dilatation or obstructing calculi. Aorta shows no aneurysm. No retroperitoneal adenopathy or mesenteric abnormalities are seen. No pelvic mass or adenopathy is seen. Prostate gland is enlarged measuring 7.9 cm x 6.3 cm. Diverticuli are seen off the sigmoid colon and descending colon. No inflammatory change of diverticulitis is seen. Bone window settings were reviewed which shows mild degenerative change scattered throughout the spine. No acute osseous finding is appreciated. Impression: 1. Enlarged prostate gland. 2. Other findings which are nonacute as noted above. Diagnostic code #2 This report was dictated in MDT
[2020-01-20 18:27] VITALS: BP 133/80; PULSE 115
== END 2020-01-20 18:34 | disposition home or self-care (01) ==
LOC: MW.ED 16:25
DX: R33.9 Retention of urine, unspecified (principal); E78.00 Pure hypercholesterolemia, unspecified; I10 Essential (primary) hypertension; E11.9 Type 2 diabetes mellitus without complications; E66.9 Obesity, unspecified; Z68.34 Body mass index [BMI] 34.0-34.9, adult; Z91.040 Latex allergy status; Z88.8 Allergy status to other drugs, medicaments and biological substances; Z88.1 Allergy status to other antibiotic agents; Z79.82 Long term (current) use of aspirin; Z79.4 Long term (current) use of insulin; Z79.899 Other long term (current) drug therapy
CPT/HCPCS: 36415; 51798; 74176; 74176-26; 80053; 81003; 83605; 85025; 99284; 99284-25

== ENCOUNTER 2020-09-28 12:11 | Emergency (ER) | payer MEDICARE, OTHER ==
--- NOTE | 2020-09-28 12:57 | EDM.PDOC ---
ED HPI GENERAL MEDICAL PROBLEM - General Chief Complaint: Gastrointestinal Problem Stated Complaint: NO BM FOR FEW DAYS PAIN IN LOWER LFT SIDE Time Seen by Provider: 09/28/20 12:13 Source of Information: Reports: Patient History Limitations: Reports: No Limitations - History of Present Illness INITIAL COMMENTS - FREE TEXT/NARRATIVE: 69-year-old male past medical history hypertension, hyperlipidemia, insulin- dependent diabetes presents for left lower quadrant abdominal pain and no bowel movement for the last few days. Patient notes that he has not had a bowel movement in 2 days. Last night he began to experience left lower quadrant abdominal pain. He said some nausea but no vomiting. No fevers. No history of abdominal surgeries. Abdominal Pain Score (Numeric/FACES): 5 - Related Data Allergies Allergy/AdvReac Type Severity Reaction Status Date / Time atorvastatin calcium Allergy Hives Verified 09/28/20 13:11 [From Lipitor] cefazolin sodium [From Ancef] Allergy Hives Verified 09/28/20 13:11 latex Allergy Rash Verified 09/28/20 13:11 Home Meds: Home Meds Ascorbic Acid/Bioflavonoids [Vit C-Bioflavonoids SA] 1,000 mg PO QAM 06/25/14 [History] Aspirin [[place] Chewable Aspirin] 81 mg PO QAM 06/25/14 [History] Fenofibrate Nanocrystallized [Fenofibrate] 145 mg PO BEDTIME 06/25/14 [History] Fish Oil/[place]-3 Fatty Acids [Fish Oil] 1,200 mg PO QAM 06/25/14 [History] Hydrochlorothiazide/Lisinopril [Lisinopril/HCTZ 20-12.5 MG] 1 tab PO QAM 06/25/14 [History] amLODIPine Besylate [Amlodipine Besylate] 10 mg PO QAM 06/25/14 [History] metFORMIN [Glucophage] 1,000 mg PO BID 06/25/14 [History] Multivitamin [Multivitamins] 1 tab PO DAILY 06/18/16 [History] Rosuvastatin Calcium 20 mg PO DAILY 06/18/16 [History] Ciprofloxacin [Ciprofloxacin HCl] 500 mg PO BID 10 Days #20 tab 09/28/20 [Rx] Finasteride [Proscar] 5 mg PO DAILY 09/28/20 [History] Insulin Glarg,Human.Rec.Analog [Lantus] 70 units INJECT BEDTIME 09/28/20 [History] Insulin Lispro [Humalog] 1 dose INJECT ASDIRECTED 09/28/20 [History] Tamsulosin HCl [Flomax] 0.8 mg PO DAILY 09/28/20 [History] metroNIDAZOLE [Flagyl] 500 mg PO Q8H 10 Days #30 tab 09/28/20 [Rx] Past Medical History HEENT History: Reports: Impaired Vision Other HEENT History: wears glasses Cardiovascular History: Reports: High Cholesterol, Hypertension Respiratory History: Reports: Sleep Apnea Other Respiratory History: uses BPAP Gastrointestinal History: Reports: None Genitourinary History: Reports: None Musculoskeletal History: Reports: Back Pain, Chronic Neurological History: Reports: None Psychiatric History: Reports: None Endocrine/Metabolic History: Reports: Diabetes, Type II, Obesity/BMI 30+ Hematologic History: Reports: Blood Transfusion(s) Other Hematologic History: blood transfusion following nose bleed at 10 yrs old Immunologic History: Reports: None Oncologic (Cancer) History: Reports: None Dermatologic History: Reports: None - Infectious Disease History Infectious Disease History: Reports: None - Past Surgical History Head Surgeries/Procedures: Reports: None HEENT Surgical History: Reports: Cataract Surgery, Tonsillectomy Musculoskeletal Surgical History: Reports: Arthroscopic Knee Social & Family History - Family History Family Medical History: No Pertinent Family History - Caffeine Use Caffeine Use: Reports: None ED ROS GENERAL - Review of Systems Review Of Systems: Comprehensive ROS is negative, except as noted in HPI. ED EXAM, GENERAL - Physical Exam Exam: See Below Exam Limited By: No Limitations General Appearance: Alert, WD/WN, No Apparent Distress Ears: Hearing Grossly Normal Throat/Mouth: Normal Voice, No Airway Compromise Head: Atraumatic, Normocephalic Neck: Normal Inspection Respiratory/Chest: No Respiratory Distress, Lungs Clear, Normal Breath Sounds, No Accessory Muscle Use Cardiovascular: Normal Peripheral Pulses, Regular Rate, Rhythm GI/Abdominal: Soft, Other (LLQ TTP without guarding) Extremities: Normal Inspection Neurological: Alert Psychiatric: Normal Affect, Normal Mood Skin Exam: Warm, Dry, Intact, Normal Color Course - Vital Signs Last Recorded V/S: Last Vital Signs Temp 97.5 F 09/28/20 13:12 Pulse 109 H 09/28/20 13:12 Resp 17 09/28/20 13:12 BP 131/86 09/28/20 13:12 Pulse Ox 98 09/28/20 13:12 - Orders/Labs/Meds Orders: Active Orders 24 hr Category Date Time Status Sodium Chloride 0.9% [Saline Flush] Med 09/28/20 13:13 Active 10 ml FLUSH ASDIRECTED PRN Sodium Chloride 0.9% [Saline Flush] Med 09/28/20 13:13 Active 2.5 ml FLUSH ASDIRECTED PRN Saline Lock Insert [OM.PC] Stat Oth 09/28/20 13:14 Ordered Medication Orders Sodium Chloride (Sodium Chloride 0.9% 10 Ml Syringe) 10 ml FLUSH ASDIRECTED PRN PRN Reason: Keep Vein Open Last Admin: 09/28/20 13:42 Dose: 10 ml Documented by: [email or web address] Sodium Chloride (Sodium Chloride 0.9% 2.5 Ml Syringe) 2.5 ml FLUSH ASDIRECTED PRN PRN Reason: Keep Vein Open Last Admin: 09/28/20 13:42 Dose: 2.5 ml Documented by: [email or web address] Labs: Laboratory Tests 09/28/20 09/28/20 Range/Units 13:27 13:27 WBC 9.47 (4.0-11.0) K/uL RBC 4.03 L (4.50-5.90) M/uL Hgb 13.0 (13.0-17.0) g/dL Hct 38.6 (38.0-50.0) % MCV 95.8 (80.0-98.0) fL MCH 32.3 H (27.0-32.0) pg MCHC 33.7 (31.0-37.0) g/dL RDW Std Deviation 49.3 (28.0-62.0) fl RDW Coeff of Chitra 14 (11.0-15.0) % Plt Count 265 (150-400) K/uL MPV 9.70 (7.40-12.00) fL Neut % (Auto) 76.9 (48.0-80.0) % Lymph % (Auto) 11.6 L (16.0-40.0) % [place] % (Auto) 11.0 (0.0-15.0) % Eos % (Auto) 0.4 (0.0-7.0) % Baso % (Auto) 0.1 (0.0-1.5) % Neut # (Auto) 7.3 H (1.4-5.7) K/uL Lymph # (Auto) 1.1 (0.6-2.4) K/uL [place] # (Auto) 1.0 H (0.0-0.8) K/uL Eos # (Auto) 0.0 (0.0-0.7) K/uL Baso # (Auto) 0.0 (0.0-0.1) K/uL Nucleated RBC % 0.0 /100WBC Nucleated RBCs # 0 K/uL Sodium 134 L (136-148) mmol/L Potassium 4.2 (3.5-5.1) mmol/L Chloride 97 L (98-107) mmol/L Carbon Dioxide 29.0 (21.0-32.0) mmol/L BUN 15 (7.0-18.0) mg/dL Creatinine 1.4 H (0.8-1.3) mg/dL Est Cr Clr Drug Dosing 52.14 mL/min Estimated GFR (MDRD) 50.4 ml/min Glucose 228 H (74-106) mg/dL Calcium 9.5 (8.5-10.1) mg/dL Total Bilirubin 0.8 (0.2-1.0) mg/dL AST 13 L (15-37) IU/L ALT 20 (14-63) IU/L Alkaline Phosphatase 39 L (46-116) U/L Total Protein 7.5 (6.4-8.2) g/dL Albumin 3.6 (3.4-5.0) g/dL Globulin 3.9 (2.6-4.0) g/dL Albumin/Globulin Ratio 0.9 (0.9-1.6) Meds: Medications Generic Name Dose Route Start Last Admin Trade Name Freq PRN Reason Stop Dose Admin Sodium Chloride 10 ml 09/28/20 13:13 09/28/20 13:42 Sodium Chloride 0.9% 10 Ml Syringe FLUSH 10 ml ASDIRECTED PRN Administration Keep Vein Open Sodium Chloride 2.5 ml 09/28/20 13:13 09/28/20 13:42 Sodium Chloride 0.9% 2.5 Ml Syringe FLUSH 2.5 ml ASDIRECTED PRN Administration Keep Vein Open Discontinued Medications Generic Name Dose Route Start Last Admin Trade Name Freq PRN Reason Stop Dose Admin Iopamidol 100 ml 09/28/20 14:45 09/28/20 14:46 Iopamidol 755 Mg/Ml 500 Ml Multipack Bottle IVPUSH 09/28/20 14:46 100 ml ONETIME ONE Administration - Re-Assessments/Exams Free Text/Narrative Re-Assessment/Exam: 09/28/20 13:15 We will get basic labs. Will get CT imaging of the abdomen and pelvis. We will follow up results and disposition accordingly. 09/28/20 14:32 Labs are grossly unremarkable. We will follow-up CT imaging and disposition patient accordingly. 09/28/20 15:33 CT imaging reveals diverticulitis. Will discharge patient with antibiotics and information regarding diverticular DIET. We will also put on stool softeners. Departure - Departure Time of Disposition: 15:34 Disposition: Home, Self-Care 01 Condition: Good Clinical Impression: Diverticulitis - Discharge Information Prescriptions: Ciprofloxacin [Ciprofloxacin HCl] 500 mg PO BID 10 Days #20 tab metroNIDAZOLE [Flagyl] 500 mg PO Q8H 10 Days #30 tab Instructions: Diverticulitis Referrals: Wei Page MD [Primary Care Provider] - Forms: ED Department Discharge Sepsis Event Note (ED) - Focused Exam Vital Signs: Vital Signs Temp Pulse Resp BP Pulse Ox 09/28/20 13:12 97.5 F 109 H 17 131/86 98 - My Orders Last 24 Hours: My Active Orders 09/28/20 13:13 Sodium Chloride 0.9% [Saline Flush] 10 ml FLUSH ASDIRECTED PRN Sodium Chloride 0.9% [Saline Flush] 2.5 ml FLUSH ASDIRECTED PRN 09/28/20 13:14 Saline Lock Insert [OM.PC] Stat - Assessment/Plan Last 24 Hours: My Active Orders 09/28/20 13:13 Sodium Chloride 0.9% [Saline Flush] 10 ml FLUSH ASDIRECTED PRN Sodium Chloride 0.9% [Saline Flush] 2.5 ml FLUSH ASDIRECTED PRN 09/28/20 13:14 Saline Lock Insert [OM.PC] Stat
[2020-09-28] MEDS ORDERED: Sodium Chloride 0.9% 10 ML Syringe FLUSH PRN (13:13)
[2020-09-28] MEDS ORDERED: Sodium Chloride 0.9% 2.5 ML Syringe FLUSH PRN (13:13)
[2020-09-28 14:18] LABS: POTASSIUM,K 4.2 mmol/L (3.5-5.1)
[2020-09-28] MEDS ORDERED: Iopamidol 755 MG/ML 500 ML Multipack Bottle IVPUSH ONE (14:45)
--- NOTE | 2020-09-28 15:31 | CT ---
INDICATION: Nausea, constipation TECHNIQUE: CT abdomen and pelvis acquired with 100 cc Isovue 370 IV contrast. COMPARISON: January 20, 2020 FINDINGS: Lower chest: Coronary artery calcification. Liver: Unremarkable. Spleen: Unremarkable. Pancreas: Unremarkable. Gallbladder and bile ducts: Very small gallstones. Adrenal glands: Unremarkable. Kidneys: Simple cyst on the left kidney. GI tract: Colonic diverticulosis. Circumferential wall thickening involving intermittent sections of the mid to distal descending and proximal to mid sigmoid portions of the colon. Mild pericolonic fat stranding. No extraluminal air or abscess identified. Vascular structures: Unremarkable. Lymph nodes: Unremarkable. Miscellaneous: Unremarkable. No free air or significant free fluid. Pelvic Organs: Enlarged prostate gland measuring 6.9 cm. Bones: Unremarkable for age. IMPRESSION: Acute diverticulitis involving sections of the descending and sigmoid colon. No abscess or extraluminal air identified. Enlarged prostate gland. Cholelithiasis. Coronary artery disease. Please note that all CT scans at this facility use dose modulation, iterative reconstruction, and/or weight-based dosing when appropriate to reduce radiation dose to as low as reasonably achievable. Dictated by Brittny Cox MD @ Sep 28 2020 3:30PM Signed by Dr. Brittny Cox @ Sep 28 2020 3:30PM
[2020-09-28 15:43] VITALS: BP 135/59; PULSE 102
== END 2020-09-28 16:02 | disposition home or self-care (01) ==
LOC: MW.ED 12:11
DX: K57.32 Diverticulitis of large intestine without perforation or abscess without bleeding (principal); E78.00 Pure hypercholesterolemia, unspecified; I10 Essential (primary) hypertension; E11.9 Type 2 diabetes mellitus without complications; E66.9 Obesity, unspecified; Z88.8 Allergy status to other drugs, medicaments and biological substances; Z88.1 Allergy status to other antibiotic agents; Z91.040 Latex allergy status; Z79.82 Long term (current) use of aspirin; Z79.4 Long term (current) use of insulin; Z79.899 Other long term (current) drug therapy
CPT/HCPCS: 36415; 74177; 80053; 85025; 99284; Q9967

== ENCOUNTER 2020-09-28 20:17 | Emergency (ER) | payer MEDICARE, OTHER ==
--- NOTE | 2020-09-28 21:29 | EDM.PDOC ---
ED HPI GENERAL MEDICAL PROBLEM - General Chief Complaint: Abdominal Pain Stated Complaint: EXTREME PAIN, PERSISTANT Time Seen by Provider: 09/28/20 21:26 - History of Present Illness INITIAL COMMENTS - FREE TEXT/NARRATIVE: History of present illness: []-year-old male has abdominal pain and nausea. The nausea is unbearable. He has had no bowel movement for 2 days. He came in with abdominal pain in the morning and was here most of the day and a diagnosis of diverticulitis was given. He was sent home on Cipro and Flagyl. His nausea is really intense and his pain is moderate. The pain is in the epigastrium. The patient is a diabetic. He is treated for hypertension. He does not smoke. Review of systems: As per history of present illness and below otherwise all systems reviewed and negative. Past medical history: As per history of present illness and as reviewed below otherwise noncontributory. Surgical history: As per history of present illness and as reviewed below otherwise noncontributory. Social history: No reported history of drug or alcohol abuse. Family history: As per history of present illness and as reviewed below otherwise noncontributory. Physical exam: Constitutional - well developed, well-nourished and in no acute distress HEENT - normocephalic, no evidence of trauma - external nose and mouth normal - no mass in neck and no JVD - mucosae moist EYES - full EOM, PERRL, no icterus - no evidence of inflammation, injection, or drainage Respiratory - no respiratory distress, equal bilateral expansion, lungs clear to auscultation and no abnormal lung sounds Cardiovascular - Regular Rhythm with S1 and S2 appreciated and no murmur, gallop or rub. GI -she is tenderness-abdomen soft without distension or organomegaly - normal bowel sounds - no guard or rebound Musculoskeletal no gross deformity of long bones or joints - no tenderness, swelling or edema Neurologic - Alert and oriented times four - CN II-XII grossly intact - motor sensory and coordination symmetrically normal Psychiatric - appropriate mood and affect with normal thought content Hematologic - No petechiae or purpura - mucosa appropriate color and sclera not pale - normal nail bed color and refill Integument - no rash or evidence of trauma - normal turgor Diagnostics: [] Therapeutics: [] Impression: [] Plan: [] Definitive disposition and diagnosis as appropriate pending reevaluation and review of above. Abdomen Pain Score (Numeric/FACES): 8 - Related Data Allergies Allergy/AdvReac Type Severity Reaction Status Date / Time atorvastatin calcium Allergy Hives Verified 09/28/20 21:11 [From Lipitor] cefazolin sodium [From Ancef] Allergy Hives Verified 09/28/20 21:11 latex Allergy Rash Verified 09/28/20 21:11 Home Meds: Home Meds Ascorbic Acid/Bioflavonoids [Vit C-Bioflavonoids SA] 1,000 mg PO QAM 06/25/14 [History] Aspirin [[place] Chewable Aspirin] 81 mg PO QAM 06/25/14 [History] Fenofibrate Nanocrystallized [Fenofibrate] 145 mg PO BEDTIME 06/25/14 [History] Fish Oil/[place]-3 Fatty Acids [Fish Oil] 1,200 mg PO QAM 06/25/14 [History] Hydrochlorothiazide/Lisinopril [Lisinopril/HCTZ 20-12.5 MG] 1 tab PO QAM 06/25/14 [History] amLODIPine Besylate [Amlodipine Besylate] 10 mg PO QAM 06/25/14 [History] metFORMIN [Glucophage] 1,000 mg PO BID 06/25/14 [History] Multivitamin [Multivitamins] 1 tab PO DAILY 06/18/16 [History] Rosuvastatin Calcium 20 mg PO DAILY 06/18/16 [History] Ciprofloxacin [Ciprofloxacin HCl] 500 mg PO BID 10 Days #20 tab 09/28/20 [Rx] Finasteride [Proscar] 5 mg PO DAILY 09/28/20 [History] Insulin Glarg,Human.Rec.Analog [Lantus] 70 units INJECT BEDTIME 09/28/20 [History] Insulin Lispro [Humalog] 1 dose INJECT ASDIRECTED 09/28/20 [History] Metoclopramide HCl [Reglan] 10 mg PO QID PRN #12 tablet 09/28/20 [Rx] Tamsulosin HCl [Flomax] 0.8 mg PO DAILY 09/28/20 [History] metroNIDAZOLE [Flagyl] 500 mg PO Q8H 10 Days #30 tab 09/28/20 [Rx] polyethylene glycoL 3350 [MiraLAX] 17 gm PO DAILY #1 cont 09/28/20 [Rx] Past Medical History HEENT History: Reports: Impaired Vision Other HEENT History: wears glasses Cardiovascular History: Reports: High Cholesterol, Hypertension Respiratory History: Reports: Sleep Apnea Other Respiratory History: uses BPAP Gastrointestinal History: Reports: None Genitourinary History: Reports: None Musculoskeletal History: Reports: Back Pain, Chronic Neurological History: Reports: None Psychiatric History: Reports: None Endocrine/Metabolic History: Reports: Diabetes, Type II, Obesity/BMI 30+ Insulin Pump Model and Manager Star: N/A Hematologic History: Reports: Blood Transfusion(s) Other Hematologic History: blood transfusion following nose bleed at 10 yrs old Immunologic History: Reports: None Oncologic (Cancer) History: Reports: None Dermatologic History: Reports: None - Infectious Disease History Infectious Disease History: Reports: None - Past Surgical History Head Surgeries/Procedures: Reports: None HEENT Surgical History: Reports: Cataract Surgery, Tonsillectomy Cardiovascular Surgical History: Reports: None Respiratory Surgical History: Reports: None Musculoskeletal Surgical History: Reports: Arthroscopic Knee Social & Family History - Family History Family Medical History: No Pertinent Family History - Caffeine Use Caffeine Use: Reports: None - Recreational Drug Use Recreational Drug Use: No ED ROS GENERAL - Review of Systems Review Of Systems: Comprehensive ROS is negative, except as noted in HPI. ED EXAM, GENERAL - Physical Exam Exam: See Below Free Text/Narrative:: My physical exam is in the HPI Course - Vital Signs Last Recorded V/S: Last Vital Signs Temp 36.1 C 09/28/20 21:11 Pulse 108 H 09/28/20 21:11 Resp 18 09/28/20 21:11 BP 118/65 09/28/20 21:11 Pulse Ox 97 09/28/20 21:11 - Orders/Labs/Meds Orders: Active Orders 24 hr Category Date Time Status Sodium Chloride 0.9% [Saline Flush] Med 09/28/20 21:49 Active 10 ml FLUSH ASDIRECTED PRN Sodium Chloride 0.9% [Saline Flush] Med 09/28/20 21:49 Active 2.5 ml FLUSH ASDIRECTED PRN Saline Lock Insert [OM.PC] Stat Oth 09/28/20 21:49 Ordered Medication Orders Sodium Chloride (Sodium Chloride 0.9% 10 Ml Syringe) 10 ml FLUSH ASDIRECTED PRN PRN Reason: Keep Vein Open Sodium Chloride (Sodium Chloride 0.9% 2.5 Ml Syringe) 2.5 ml FLUSH ASDIRECTED PRN PRN Reason: Keep Vein Open Labs: Laboratory Tests 09/28/20 09/28/20 09/28/20 Range/Units 21:50 22:00 22:00 WBC 8.36 (4.0-11.0) K/uL RBC 4.09 L (4.50-5.90) M/uL Hgb 13.5 (13.0-17.0) g/dL Hct 39.1 (38.0-50.0) % MCV 95.6 (80.0-98.0) fL MCH 33.0 H (27.0-32.0) pg MCHC 34.5 (31.0-37.0) g/dL RDW Std Deviation 49.1 (28.0-62.0) fl RDW Coeff of Chitra 14 (11.0-15.0) % Plt Count 298 (150-400) K/uL MPV 10.00 (7.40-12.00) fL Neut % (Auto) 72.4 (48.0-80.0) % Lymph % (Auto) 15.9 L (16.0-40.0) % [place] % (Auto) 11.1 (0.0-15.0) % Eos % (Auto) 0.5 (0.0-7.0) % Baso % (Auto) 0.1 (0.0-1.5) % Neut # (Auto) 6.1 H (1.4-5.7) K/uL Lymph # (Auto) 1.3 (0.6-2.4) K/uL [place]ina # (Auto) 0.9 H (0.0-0.8) K/uL Eos # (Auto) 0.0 (0.0-0.7) K/uL Baso # (Auto) 0.0 (0.0-0.1) K/uL Nucleated RBC % 0.0 /100WBC Nucleated RBCs # 0 K/uL Sodium 136 (136-148) mmol/L Potassium 4.0 (3.5-5.1) mmol/L Chloride 98 (98-107) mmol/L Carbon Dioxide 27.8 (21.0-32.0) mmol/L BUN 15 (7.0-18.0) mg/dL Creatinine 1.5 H (0.8-1.3) mg/dL Est Cr Clr Drug Dosing 48.67 mL/min Estimated GFR (MDRD) 46.5 ml/min Glucose 217 H (74-106) mg/dL Calcium 9.7 (8.5-10.1) mg/dL Total Bilirubin 0.5 (0.2-1.0) mg/dL AST 14 L (15-37) IU/L ALT 22 (14-63) IU/L Alkaline Phosphatase 47 (46-116) U/L Total Protein 7.7 (6.4-8.2) g/dL Albumin 3.7 (3.4-5.0) g/dL Globulin 4.0 (2.6-4.0) g/dL Albumin/Globulin Ratio 0.9 (0.9-1.6) Lipase 92 (73-393) U/L Urine Color YELLOW Urine Appearance CLEAR Urine pH 7.0 (5.0-8.0) Ur Specific [place] 1.010 (1.001-1.035) Urine Protein NEGATIVE (NEGATIVE) mg/dL Urine Glucose (UA) 250 H (NEGATIVE) mg/dL Urine Ketones NEGATIVE (NEGATIVE) mg/dL Urine Occult Blood NEGATIVE (NEGATIVE) Urine Nitrite NEGATIVE (NEGATIVE) Urine Bilirubin NEGATIVE (NEGATIVE) Urine Urobilinogen 4.0 H (<2.0) EU/dL Ur Leukocyte Esterase NEGATIVE (NEGATIVE) Meds: Medications Generic Name Dose Route Start Last Admin Trade Name Freq PRN Reason Stop Dose Admin Sodium Chloride 10 ml 09/28/20 21:49 Sodium Chloride 0.9% 10 Ml Syringe FLUSH ASDIRECTED PRN Keep Vein Open Sodium Chloride 2.5 ml 09/28/20 21:49 Sodium Chloride 0.9% 2.5 Ml Syringe FLUSH ASDIRECTED PRN Keep Vein Open Discontinued Medications Generic Name Dose Route Start Last Admin Trade Name Freq PRN Reason Stop Dose Admin Sodium Chloride 1,000 mls @ 999 mls/hr 09/28/20 21:51 09/28/20 21:57 Normal Saline IV 09/28/20 22:51 999 mls/hr .BOLUS ONE Administration Metoclopramide HCl 10 mg 09/28/20 21:51 09/28/20 21:57 Metoclopramide 10 Mg/2 Ml Sdv IVPUSH 09/28/20 21:52 10 mg ONETIME ONE Administration Metoclopramide HCl 10 mg 09/28/20 22:51 Metoclopramide 10 Mg Tab PO 09/28/20 22:52 ONETIME ONE Departure - Departure Time of Disposition: 22:56 Disposition: Home, Self-Care 01 Condition: Good Clinical Impression: Nausea, Diverticulitis - Discharge Information Prescriptions: Metoclopramide HCl [Reglan] 10 mg PO QID PRN #12 tablet PRN Reason: Nausea Instructions: Nausea, Adult, Diverticulitis, [id number] Referrals: PCP,None [Primary Care Provider] - Forms: ED Department Discharge Additional Instructions: [facility] [address] [place] [id number] [id number] The following information is given to patients seen in the emergency department who are being discharged to home. This information is to outline your options for follow-up care. We provide all patients seen in our emergency department with a follow-up referral. The need for follow-up, as well as the timing and circumstances, are variable depending upon the specifics of your emergency department visit. If you don't have a primary care physician on staff, we will provide you with a referral. We always advise you to contact your personal physician following an emergency department visit to inform them of the circumstance of the visit and for follow-up with them and/or the need for any referrals to a consulting specialist. The emergency department will also refer you to a specialist when appropriate. This referral assures that you have the opportunity for follow-up care with a s pecialist. All of these measure are taken in an effort to provide you with optimal care, which includes your follow-up. Under all circumstances we always encourage you to contact your private physici an who remains a resource for coordinating your care. When calling for follow-up care, please make the office aware that this follow-up is from your recent emergency room visit. If for any reason you are refused follow-up, please contact the [facility] Emergency Department at and asked to speak to the emergency department charge nurse. Sepsis Event Note (ED) - Evaluation Sepsis Screening Result: No Definite Risk - Focused Exam Vital Signs: Vital Signs Temp Pulse Resp BP Pulse Ox 09/28/20 21:11 36.1 C 108 H 18 118/65 97 - My Orders Last 24 Hours: My Active Orders 09/28/20 21:49 Sodium Chloride 0.9% [Saline Flush] 10 ml FLUSH ASDIRECTED PRN Sodium Chloride 0.9% [Saline Flush] 2.5 ml FLUSH ASDIRECTED PRN Saline Lock Insert [OM.PC] Stat - Assessment/Plan Last 24 Hours: My Active Orders 09/28/20 21:49 Sodium Chloride 0.9% [Saline Flush] 10 ml FLUSH ASDIRECTED PRN Sodium Chloride 0.9% [Saline Flush] 2.5 ml FLUSH ASDIRECTED PRN Saline Lock Insert [OM.PC] Stat
[2020-09-28] MEDS ORDERED: Sodium Chloride 0.9% 2.5 ML Syringe FLUSH PRN (21:49)
[2020-09-28] MEDS ORDERED: Sodium Chloride 0.9% 10 ML Syringe FLUSH PRN (21:49)
[2020-09-28] MEDS ORDERED: Metoclopramide 10 MG/2 ML SDV IVPUSH ONE (21:51)
[2020-09-28] MEDS ORDERED: Sodium Chloride 0.9% 1,000 ML IV ONE (21:51)
[2020-09-28 22:30] LABS: CARBON DIOXIDE,CO2 27.8 mmol/L (21.0-32.0)
[2020-09-28] MEDS ORDERED: Metoclopramide 10 MG Tab PO ONE (22:51)
[2020-09-28 23:11] VITALS: BP 117/62; PULSE 95
== END 2020-09-28 23:11 | disposition home or self-care (01) ==
LOC: MW.ED 20:17
DX: K57.92 Diverticulitis of intestine, part unspecified, without perforation or abscess without bleeding (principal); R11.0 Nausea; E78.00 Pure hypercholesterolemia, unspecified; I10 Essential (primary) hypertension; E11.9 Type 2 diabetes mellitus without complications; E66.9 Obesity, unspecified; Z68.33 Body mass index [BMI] 33.0-33.9, adult; Z88.8 Allergy status to other drugs, medicaments and biological substances; Z88.1 Allergy status to other antibiotic agents; Z91.040 Latex allergy status; Z79.82 Long term (current) use of aspirin; Z79.4 Long term (current) use of insulin; Z79.899 Other long term (current) drug therapy
CPT/HCPCS: 36415; 80053; 81003; 83690; 85025; 96374; 99284; A9270; J2765; J7030; 74177; 74177-26; Q9967

== ENCOUNTER 2020-10-06 04:35 | Emergency (ER) | payer MEDICARE, OTHER ==
[2020-10-06] MEDS ORDERED: Sodium Chloride 0.9% 10 ML Syringe FLUSH PRN (05:07)
[2020-10-06] MEDS ORDERED: Sodium Chloride 0.9% 1,000 ML IV ONE (05:07)
[2020-10-06] MEDS ORDERED: Sodium Chloride 0.9% 2.5 ML Syringe FLUSH PRN (05:07)
[2020-10-06] MEDS ORDERED: Ondansetron 4 MG/2 ML SDV IVPUSH ONE (05:07)
--- NOTE | 2020-10-06 05:13 | EDM.PDOC ---
ED HPI GENERAL MEDICAL PROBLEM - General Chief Complaint: Gastrointestinal Problem Stated Complaint: DIVERTICULITIS, NAUSEA Time Seen by Provider: 10/06/20 05:00 - History of Present Illness INITIAL COMMENTS - FREE TEXT/NARRATIVE: HISTORY AND PHYSICAL: History of present illness: This is a 69-year-old gentleman with a history significant for hypertension, insulin-dependent diabetes, hyperlipidemia, recent diagnosis of acute d iverticulitis who presents ER today complaining of persistent nausea. Patient reports that he was seen in the ED here approximately 1 week ago and was started on Cipro and Flagyl. Patient reports he has been taking his antibiotics without difficulty however he reports over the last several days he has had persistent nausea. Patient reports he has been able to tolerate p.o. solids and liquids fa irly well and he did have a ham sandwich this evening for dinner. Patient reports that he was prescribed Reglan during his second visit however after seeing his family physician on Friday his family physician recommended that he discontinue the Reglan secondary to feelings of anxiety that the patient was having. It appears from the conversation of having with the patient that his doctor might of felt that he was having side effects of the Reglan and asked him to discontinue it. Patient however was not started on any new antiemetic medications and reports that he has been feeling nauseous since. Patient denies any recent fevers, shakes, chills. Patient reports nausea with no vomiting or diarrhea. Patient denies any dysuria, frequency, urgency. Patient denies any chest pain or shortness of breath. Patient reports that he has had absolutely no abdominal pain for the last several days and feels much improved with regards to the pain however the main issue today is his nausea. Review of systems: As per history of present illness and below otherwise all systems reviewed and negative. Past medical history: As per history of present illness and as reviewed below otherwise nonco ntributory. Surgical history: As per history of present illness and as reviewed below otherwise noncontributory. Social history: No reported history of drug or alcohol abuse. Family history: As per history of present illness and as reviewed below otherwise noncontributory. Physical exam: This patient was seen and evaluated during the 2019 SARS-CoV-2 novel coronavirus pandemic period. Community viral transmission is ongoing at time of this encounter and the emergency department is operating under pandemic response procedures. Constitutional: Patient is oriented to person, place, and time. Appears well- developed and well-nourished. No distress. HEENT: Moist mucous membranes Head: Normocephalic and atraumatic Eyes: Right eye exhibits no discharge. Left eye exhibits no discharge. No scleral icterus Neck: Normal range of motion. No tracheal deviation present. Cardiovascular: Normal rate and regular rhythm. Pulmonary: Effort normal, no respiratory distress. Abd: Soft, nondistended, no rebound/guarding, no psoas or obturator signs, no tenderness at Mcberney's point, no Cuadra's sign. Pt does not present with an exam that would be consistent with an acute surgical abdomen at this time, nontender to palpation throughout his belly. Musculoskeletal: Normal range of motion Neurologic: Alert and oriented to person, place and time. Skin: [place], warm and dry. Psychiatric: Normal mood and affect. Behavior is normal. Judgment and thought content normal. Nursing note and vital signs have been reviewed Diagnostics: CBC, CMP, lipase Therapeutics: NSS x1 L, Zofran 4 mg IV Assessment and plan: This is a 69-year-old gentleman who presents ER today secondary to persistent nausea. Patient was diagnosed with diverticulitis approximately 1 week ago. Patient was discharged on Reglan however when he saw his primary care physician 4 days ago, he was recommended to stop his Reglan secondary to likely side effects from it. Patient reports he has been extremely nauseous since and came to the ED today for assistance. Patient will have his labs evaluated here in the ED, patient will be hydrated with 1 L of NSS although he clinically appears to be stable. Patient will be given a dose of IV Zofran in the ED and will likely discharge with Zofran ODT tablets. Patient feels much improved after the IV fluids and Zofran. Patient be discharged home with Zofran ODT's. Reassessment at the time of disposition demonstrates that the patient is in no acute distress. The patient has remained stable throughout the entire ED visit and is without objective evidence for acute process requiring urgent intervention or hospitalization. The patient is stable for discharge, counseling is provided as documented above, discussed symptomatic treatment and specific co nditions for return. I have spoken with the patient/caregiver and discussed todays findings, in addition to providing specific details for the plan of care. Questions are answered and there is agreement with the plan. Definitive disposition and diagnosis as appropriate pending reevaluation and review of above. back area Pain Score (Numeric/FACES): 5 - Related Data Allergies Allergy/AdvReac Type Severity Reaction Status Date / Time atorvastatin calcium Allergy Hives Verified 10/06/20 05:05 [From Lipitor] cefazolin sodium [From Ancef] Allergy Hives Verified 10/06/20 05:05 latex Allergy Rash Verified 10/06/20 05:05 Home Meds: Home Meds Ascorbic Acid/Bioflavonoids [Vit C-Bioflavonoids SA] 1,000 mg PO QAM 06/25/14 [History] Aspirin [[place] Chewable Aspirin] 81 mg PO QAM 06/25/14 [History] Fenofibrate Nanocrystallized [Fenofibrate] 145 mg PO BEDTIME 06/25/14 [History] Fish Oil/[place]-3 Fatty Acids [Fish Oil] 1,200 mg PO QAM 06/25/14 [History] Hydrochlorothiazide/Lisinopril [Lisinopril/HCTZ 20-12.5 MG] 1 tab PO QAM 06/25/14 [History] amLODIPine Besylate [Amlodipine Besylate] 10 mg PO QAM 06/25/14 [History] metFORMIN [Glucophage] 1,000 mg PO BID 06/25/14 [History] Multivitamin [Multivitamins] 1 tab PO DAILY 06/18/16 [History] Rosuvastatin Calcium 20 mg PO DAILY 06/18/16 [History] Ciprofloxacin [Ciprofloxacin HCl] 500 mg PO BID 10 Days #20 tab 09/28/20 [Rx] Finasteride [Proscar] 5 mg PO DAILY 09/28/20 [History] Insulin Glarg,Human.Rec.Analog [Lantus] 70 units INJECT BEDTIME 09/28/20 [History] Insulin Lispro [Humalog] 1 dose INJECT ASDIRECTED 09/28/20 [History] Metoclopramide HCl [Reglan] 10 mg PO QID PRN #12 tablet 09/28/20 [Rx] Tamsulosin HCl [Flomax] 0.8 mg PO DAILY 09/28/20 [History] metroNIDAZOLE [Flagyl] 500 mg PO Q8H 10 Days #30 tab 09/28/20 [Rx] polyethylene glycoL 3350 [MiraLAX] 17 gm PO DAILY #1 cont 09/28/20 [Rx] Ondansetron [Zofran ODT] 4 mg PO Q6H PRN #12 tab.dis 10/06/20 [Rx] Past Medical History HEENT History: Reports: Impaired Vision Other HEENT History: wears glasses Cardiovascular History: Reports: High Cholesterol, Hypertension Respiratory History: Reports: Sleep Apnea Other Respiratory History: uses BPAP Gastrointestinal History: Reports: None Genitourinary History: Reports: None Musculoskeletal History: Reports: Back Pain, Chronic Neurological History: Reports: None Psychiatric History: Reports: None Endocrine/Metabolic History: Reports: Diabetes, Type II, Obesity/BMI 30+ 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 Hematologic History: Reports: Blood Transfusion(s) Other Hematologic History: blood transfusion following nose bleed at 10 yrs old Immunologic History: Reports: None Oncologic (Cancer) History: Reports: None Dermatologic History: Reports: None - Infectious Disease History Infectious Disease History: Reports: None - Past Surgical History Head Surgeries/Procedures: Reports: None HEENT Surgical History: Reports: Cataract Surgery, Tonsillectomy Cardiovascular Surgical History: Reports: None Respiratory Surgical History: Reports: None Musculoskeletal Surgical History: Reports: Arthroscopic Knee Social & Family History - Family History Family Medical History: No Pertinent Family History - Caffeine Use Caffeine Use: Reports: None ED ROS GENERAL - Review of Systems Review Of Systems: See Below ED EXAM, GENERAL - Physical Exam Exam: See Below Course - Vital Signs Last Recorded V/S: Last Vital Signs Temp 97 F 10/06/20 04:55 Pulse 96 10/06/20 05:28 Resp 18 10/06/20 04:55 BP 125/73 10/06/20 04:55 Pulse Ox 97 10/06/20 04:55 - Orders/Labs/Meds Orders: Active Orders 24 hr Category Date Time Status Sodium Chloride 0.9% [Normal Saline] 1,000 ml Med 10/06/20 05:07 Active IV .Bolus Sodium Chloride 0.9% [Saline Flush] Med 10/06/20 05:07 Active 10 ml FLUSH ASDIRECTED PRN Sodium Chloride 0.9% [Saline Flush] Med 10/06/20 05:07 Active 2.5 ml FLUSH ASDIRECTED PRN Saline Lock Insert [OM.PC] Stat Oth 10/06/20 05:07 Ordered Medication Orders Sodium Chloride (Normal Saline) 1,000 mls @ 999 mls/hr IV .Bolus ONE Stop: 10/06/20 06:07 Last Admin: 10/06/20 05:20 Dose: 999 mls/hr Documented by: IESHA Sodium Chloride (Sodium Chloride 0.9% 10 Ml Syringe) 10 ml FLUSH ASDIRECTED PRN PRN Reason: Keep Vein Open Sodium Chloride (Sodium Chloride 0.9% 2.5 Ml Syringe) 2.5 ml FLUSH ASDIRECTED PRN PRN Reason: Keep Vein Open Labs: Laboratory Tests 10/06/20 10/06/20 Range/Units 05:10 05:10 WBC 6.10 (4.0-11.0) K/uL RBC 4.24 L (4.50-5.90) M/uL Hgb 14.0 (13.0-17.0) g/dL Hct 40.6 (38.0-50.0) % MCV 95.8 (80.0-98.0) fL MCH 33.0 H (27.0-32.0) pg MCHC 34.5 (31.0-37.0) g/dL RDW Std Deviation 48.2 (28.0-62.0) fl RDW Coeff of Chitra 14 (11.0-15.0) % Plt Count 382 (150-400) K/uL MPV 9.80 (7.40-12.00) fL Neut % (Auto) 54.9 (48.0-80.0) % Lymph % (Auto) 32.5 (16.0-40.0) % [place] % (Auto) 9.7 (0.0-15.0) % Eos % (Auto) 2.6 (0.0-7.0) % Baso % (Auto) 0.3 (0.0-1.5) % Neut # (Auto) 3.4 (1.4-5.7) K/uL Lymph # (Auto) 2.0 (0.6-2.4) K/uL [place] # (Auto) 0.6 (0.0-0.8) K/uL Eos # (Auto) 0.2 (0.0-0.7) K/uL Baso # (Auto) 0.0 (0.0-0.1) K/uL Nucleated RBC % 0.0 /100WBC Nucleated RBCs # 0 K/uL Sodium 137 (136-148) mmol/L Potassium 3.8 (3.5-5.1) mmol/L Chloride 101 (98-107) mmol/L Carbon Dioxide 24.7 (21.0-32.0) mmol/L BUN 16 (7.0-18.0) mg/dL Creatinine 1.4 H (0.8-1.3) mg/dL Est Cr Clr Drug Dosing 52.14 mL/min Estimated GFR (MDRD) 50.4 ml/min Glucose 219 H (74-106) mg/dL Calcium 9.3 (8.5-10.1) mg/dL Total Bilirubin 0.3 (0.2-1.0) mg/dL AST 19 (15-37) IU/L ALT 26 (14-63) IU/L Alkaline Phosphatase 42 L (46-116) U/L Total Protein 7.0 (6.4-8.2) g/dL Albumin 3.6 (3.4-5.0) g/dL Globulin 3.4 (2.6-4.0) g/dL Albumin/Globulin Ratio 1.1 (0.9-1.6) Lipase 110 (73-393) U/L Meds: Medications Generic Name Dose Route Start Last Admin Trade Name Freq PRN Reason Stop Dose Admin Sodium Chloride 1,000 mls @ 999 mls/hr 10/06/20 05:07 10/06/20 05:20 Normal Saline IV 10/06/20 06:07 999 mls/hr .Bolus ONE Administration Sodium Chloride 10 ml 10/06/20 05:07 Sodium Chloride 0.9% 10 Ml Syringe FLUSH ASDIRECTED PRN Keep Vein Open Sodium Chloride 2.5 ml 10/06/20 05:07 Sodium Chloride 0.9% 2.5 Ml Syringe FLUSH ASDIRECTED PRN Keep Vein Open Discontinued Medications Generic Name Dose Route Start Last Admin Trade Name Freq PRN Reason Stop Dose Admin Ondansetron HCl 4 mg 10/06/20 05:07 10/06/20 05:20 Ondansetron 4 Mg/2 Ml Sdv IVPUSH 10/06/20 05:08 4 mg ONETIME ONE Administration Departure - Departure Time of Disposition: 05:50 Disposition: Home, Self-Care 01 Condition: Good Clinical Impression: Diverticulitis, Nausea, Dehydration - Discharge Information Instructions: Nausea, Adult, Diverticulitis, Dehydration, Adult, [id number] Referrals: Wei Page MD [Primary Care Provider] - Forms: ED Department Discharge Additional Instructions: You were seen and evaluated in ER today secondary to nausea related to your recent diagnosis of diverticulitis. You are given a dose of IV Zofran here in the ED and you will be sent home with a prescription for Zofran oral dissolvable tablets that should help you with your symptoms. Please make an appointment to see your family doctor within the next 2 to 3 days if you are having continued symptoms. The following information is given to patients seen in the emergency department who are being discharged to home. This information is to outline your options for follow-up care. We provide all patients seen in our emergency department with a follow-up referral. The need for follow-up, as well as the timing and circumstances, are variable depending upon the specifics of your emergency department visit. If you don't have a primary care physician on staff, we will provide you with a referral. We always advise you to contact your personal physician following an emergency department visit to inform them of the circumstance of the visit and for follow-up with them and/or the need for any referrals to a consulting specialist. The emergency department will also refer you to a specialist when appropriate. This referral assures that you have the opportunity for follow-up care with a sp ecialist. All of these measure are taken in an effort to provide you with optimal care, which includes your follow-up. Under all circumstances we always encourage you to contact your private physicia n who remains a resource for coordinating your care. When calling for follow-up care, please make the office aware that this follow-up is from your recent emergency room visit. If for any reason you are refused follow-up, please contact the [facility] Emergency Department at and asked to speak to the emergency department charge nurse. [facility] - Primary [facility] [address] [place] [address] [id number] [address] Sepsis Event Note (ED) - Evaluation Sepsis Screening Result: No Definite Risk - Focused Exam Vital Signs: Vital Signs Temp Pulse Resp BP Pulse Ox 10/06/20 05:28 96 10/06/20 04:55 97 F 106 H 18 125/73 97 - My Orders Last 24 Hours: My Active Orders 10/06/20 05:07 Sodium Chloride 0.9% [Normal Saline] 1,000 ml IV .Bolus Sodium Chloride 0.9% [Saline Flush] 10 ml FLUSH ASDIRECTED PRN Sodium Chloride 0.9% [Saline Flush] 2.5 ml FLUSH ASDIRECTED PRN Saline Lock Insert [OM.PC] Stat - Assessment/Plan Last 24 Hours: My Active Orders 10/06/20 05:07 Sodium Chloride 0.9% [Normal Saline] 1,000 ml IV .Bolus Sodium Chloride 0.9% [Saline Flush] 10 ml FLUSH ASDIRECTED PRN Sodium Chloride 0.9% [Saline Flush] 2.5 ml FLUSH ASDIRECTED PRN Saline Lock Insert [OM.PC] Stat
[2020-10-06 05:41] LABS: CARBON DIOXIDE,CO2 24.7 mmol/L (21.0-32.0); POTASSIUM,K 3.8 mmol/L (3.5-5.1)
[2020-10-06 06:29] VITALS: BP 100/60; PULSE 88
== END 2020-10-06 06:15 | disposition home or self-care (01) ==
LOC: MW.ED 04:35
DX: K57.92 Diverticulitis of intestine, part unspecified, without perforation or abscess without bleeding (principal); E86.0 Dehydration; R11.0 Nausea; I10 Essential (primary) hypertension; E11.9 Type 2 diabetes mellitus without complications; E78.5 Hyperlipidemia, unspecified; E66.9 Obesity, unspecified; Z68.33 Body mass index [BMI] 33.0-33.9, adult; Z88.8 Allergy status to other drugs, medicaments and biological substances; Z88.1 Allergy status to other antibiotic agents; Z91.040 Latex allergy status; Z79.82 Long term (current) use of aspirin; Z79.4 Long term (current) use of insulin; Z79.899 Other long term (current) drug therapy
CPT/HCPCS: 36415; 80053; 83690; 85025; 96374; 99283; J2405; J7030; 99284

== ENCOUNTER 2020-10-06 21:40 | Emergency (ER) | payer MEDICARE, OTHER ==
[2020-10-06] MEDS ORDERED: Sodium Chloride 0.9% 10 ML Syringe FLUSH PRN (22:06)
[2020-10-06] MEDS ORDERED: Ondansetron 4 MG/2 ML SDV IVPUSH ONE ×2 (22:06→23:53)
[2020-10-06] MEDS ORDERED: Sodium Chloride 0.9% 2.5 ML Syringe FLUSH PRN (22:06)
[2020-10-06] MEDS ORDERED: Sodium Chloride 0.9% 1,000 ML IV ONE (22:06)
[2020-10-06 22:51] LABS: BLOOD UREA NITROGEN,BUN 19 mg/dL (7.0-18.0); CARBON DIOXIDE,CO2 26.5 mmol/L (21.0-32.0); CHLORIDE,CL 103 mmol/L (98-107); GLUCOSE RANDOM 207 mg/dL (74-106); LIPASE 114 U/L (73-393); POTASSIUM,K 4.3 mmol/L (3.5-5.1); SODIUM,NA 139 mmol/L (136-148)
--- NOTE | 2020-10-06 23:10 | EDM.PDOC ---
ED HPI GENERAL MEDICAL PROBLEM - General Chief Complaint: Gastrointestinal Problem Stated Complaint: NAUSEA, BACK PAIN Time Seen by Provider: 10/06/20 21:56 - History of Present Illness INITIAL COMMENTS - FREE TEXT/NARRATIVE: HISTORY AND PHYSICAL: History of present illness: This is a 69-year-old gentleman with a history significant for hypertension, IDDM, hyperlipidemia, recent diagnosis of diverticulitis who presents to the ER today complaining of recurrence of his nausea this evening. Patient reports that he was seen here in the ED last night by me and was discharged to home with a prescription for Zofran. Patient was diagnosed with diverticulitis approximately 1 week ago and is still taking his ciprofloxacin and Flagyl. Patient reports that after receiving the Zofran last night he felt great. He reports that he took his Zofran today and was feeling fine until this evening. Patient reports that he had not eaten anything this evening and felt like his blood sugar was dropping so he bought a McChicken sandwich and ate it. Patient reports shortly after eating the chicken he started feeling nauseous and did not feel well. Patient reports that he took a Zofran at that time which was approximately 2 hours prior to arrival to the ED and not getting relief from his nausea. Patient reports that he has been persistently nauseous since approximately 6 PM this evening. Patient denies any recent fevers, shakes, chills. Patient denies any vomiting or diarrhea. Patient has any abdominal pain or discomfort. Patient reports that he has been compliant with taking his ciprofloxacin and Flagyl. Patient denies any URI symptoms or cough. Patient denies any dysuria, frequency, urgency. Patient reports that he has been drinking plenty of fluids and had a Sprite earlier today. Review of systems: As per history of present illness and below otherwise all systems reviewed and negative. Past medical history: As per history of present illness and as reviewed below otherwise noncontributory. Surgical history: As per history of present illness and as reviewed below otherwise noncontributory. Social history: No reported history of drug or alcohol abuse. Family history: As per history of present illness and as reviewed below otherwise noncontributory. Physical exam: This patient was seen and evaluated during the 2019 SARS-CoV-2 novel coronavirus pandemic period. Community viral transmission is ongoing at time of this encounter and the emergency department is operating under pandemic response procedures. Constitutional: Patient is oriented to person, place, and time. Appears well-de veloped and well-nourished. No distress. HEENT: Moist mucous membranes Head: Normocephalic and atraumatic Eyes: Right eye exhibits no discharge. Left eye exhibits no discharge. No scleral icterus Neck: Normal range of motion. No tracheal deviation present. Cardiovascular: Normal rate and regular rhythm. Pulmonary: Effort normal, no respiratory distress. Abd: Soft, nondistended, no rebound/guarding, no psoas or obturator signs, no tenderness at Mcberney's point, no Cuadra's sign. Pt does not present with an exam that would be consistent with an acute surgical abdomen at this time, n ontender to palpation. Nondistended. Musculoskeletal: Normal range of motion Neurologic: Alert and oriented to person, place and time. Skin: [place], warm and dry. Psychiatric: Normal mood and affect. Behavior is normal. Judgment and thought content normal. Nursing note and vital signs have been reviewed Assessment and plan: This is a 69-year-old gentleman who has been seen in the ED approximately 4 times in the last week secondary to a recent diagnosis of diverticulitis with resulting nausea. Patient was seen by me yesterday for persistent nausea however he reports that his doctor when he saw him on Friday told him to stop taking the Reglan that was prescribed for him for nausea and did not prescribe any other medication. Patient did receive Zofran here in the ED through his IV and felt much better and was discharged home with a prescription for Zofran. Patient presents to the ER today secondary to return of his nausea after eating a McChicken sandwich that was not resolved with his Zofran ODT's. Given that this is the second visit for nausea within 24 hours, patient will have labs as well as a CT scan of his abdomen pelvis to assure that there is no progression of his diverticulitis and that is indeed resolving. Patient currently is taking his Cipro and Flagyl without difficulty. Patient reports that when he takes it during the morning he feels no nausea however in the evening when he takes it he starts developing symptoms of nausea. Patient's labs are all within normal limits. Patient received 1 L of NSS and IV Zofran here in the ED. EKG: EKG: As interpreted by ER physician: Sujatha: Nonspecific ST-T wave abnormalities Normal axis No evidence of ST elevation [place] Normal sinus rhythm heart rate of 87 Right bundle branch block unchanged from prior EKG of 2018 Troponin negative Patient still feels nauseous here in the ED after IV fluids and Zofran. Patient CT scan reveals resolving/mild diverticulitis. No further acute abnormalities are identified. Patient's labs are all within normal limits. Patient will be given Flagyl 500 mg p.o. as well as an additional dose of 4 mg IV Zofran and will likely be discharged home with instructions to follow-up with his doctor in the next 2 to 3 days for reevaluation. Stable for discharge Definitive disposition and diagnosis as appropriate pending reevaluation and review of above. - Related Data Allergies Allergy/AdvReac Type Severity Reaction Status Date / Time atorvastatin calcium Allergy Hives Verified 10/06/20 21:51 [From Lipitor] cefazolin sodium [From Ancef] Allergy Hives Verified 10/06/20 21:51 latex Allergy Rash Verified 10/06/20 21:51 Home Meds: Home Meds Ascorbic Acid/Bioflavonoids [Vit C-Bioflavonoids SA] 1,000 mg PO QAM 06/25/14 [History] Aspirin [[place] Chewable Aspirin] 81 mg PO QAM 06/25/14 [History] Fenofibrate Nanocrystallized [Fenofibrate] 145 mg PO BEDTIME 06/25/14 [History] Fish Oil/[place]-3 Fatty Acids [Fish Oil] 1,200 mg PO QAM 06/25/14 [History] Hydrochlorothiazide/Lisinopril [Lisinopril/HCTZ 20-12.5 MG] 1 tab PO QAM 06/25/14 [History] amLODIPine Besylate [Amlodipine Besylate] 10 mg PO QAM 06/25/14 [History] metFORMIN [Glucophage] 1,000 mg PO BID 06/25/14 [History] Multivitamin [Multivitamins] 1 tab PO DAILY 06/18/16 [History] Rosuvastatin Calcium 20 mg PO DAILY 06/18/16 [History] Ciprofloxacin [Ciprofloxacin HCl] 500 mg PO BID 10 Days #20 tab 09/28/20 [Rx] Finasteride [Proscar] 5 mg PO DAILY 09/28/20 [History] Insulin Glarg,Human.Rec.Analog [Lantus] 70 units INJECT BEDTIME 09/28/20 [History] Insulin Lispro [Humalog] 1 dose INJECT ASDIRECTED 09/28/20 [History] Metoclopramide HCl [Reglan] 10 mg PO QID PRN #12 tablet 09/28/20 [Rx] Tamsulosin HCl [Flomax] 0.8 mg PO DAILY 09/28/20 [History] metroNIDAZOLE [Flagyl] 500 mg PO Q8H 10 Days #30 tab 09/28/20 [Rx] polyethylene glycoL 3350 [MiraLAX] 17 gm PO DAILY #1 cont 09/28/20 [Rx] Ondansetron [Zofran ODT] 4 mg PO Q6H PRN #12 tab.dis 10/06/20 [Rx] Past Medical History HEENT History: Reports: Impaired Vision Other HEENT History: wears glasses Cardiovascular History: Reports: High Cholesterol, Hypertension Respiratory History: Reports: Sleep Apnea Other Respiratory History: uses BPAP Gastrointestinal History: Reports: None Genitourinary History: Reports: None Musculoskeletal History: Reports: Back Pain, Chronic Neurological History: Reports: None Psychiatric History: Reports: None Endocrine/Metabolic History: Reports: Diabetes, Type II, Obesity/BMI 30+ 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 Hematologic History: Reports: Blood Transfusion(s) Other Hematologic History: blood transfusion following nose bleed at 10 yrs old Immunologic History: Reports: None Oncologic (Cancer) History: Reports: None Dermatologic History: Reports: None - Infectious Disease History Infectious Disease History: Reports: Chicken Pox, Measles - Past Surgical History Head Surgeries/Procedures: Reports: None HEENT Surgical History: Reports: Cataract Surgery, Tonsillectomy Cardiovascular Surgical History: Reports: None Respiratory Surgical History: Reports: None Musculoskeletal Surgical History: Reports: Arthroscopic Knee Social & Family History - Family History Family Medical History: No Pertinent Family History - Caffeine Use Caffeine Use: Reports: None - Recreational Drug Use Recreational Drug Use: No ED ROS GENERAL - Review of Systems Review Of Systems: See Below ED EXAM, GENERAL - Physical Exam Exam: See Below Course - Vital Signs Last Recorded V/S: Last Vital Signs Temp 97.1 F 10/06/20 21:52 Pulse 107 H 10/06/20 21:52 Resp 18 10/06/20 21:52 BP 112/60 10/07/20 00:55 Pulse Ox 95 10/06/20 21:52 - Orders/Labs/Meds Orders: Active Orders 24 hr Category Date Time Status EKG Documentation Completion [RC] AM Care 10/07/20 00:03 Active Sodium Chloride 0.9% [Saline Flush] Med 10/06/20 22:06 Active 10 ml FLUSH ASDIRECTED PRN Sodium Chloride 0.9% [Saline Flush] Med 10/06/20 22:06 Active 2.5 ml FLUSH ASDIRECTED PRN Saline Lock Insert [OM.PC] Stat Oth 10/06/20 22:06 Ordered Medication Orders Sodium Chloride (Sodium Chloride 0.9% 10 Ml Syringe) 10 ml FLUSH ASDIRECTED PRN PRN Reason: Keep Vein Open Last Admin: 10/06/20 22:14 Dose: 10 ml Documented by: ALEJANDRO Sodium Chloride (Sodium Chloride 0.9% 2.5 Ml Syringe) 2.5 ml FLUSH ASDIRECTED PRN PRN Reason: Keep Vein Open Last Admin: 10/06/20 22:13 Dose: 2.5 ml Documented by: ALEJANDRO Labs: Laboratory Tests 10/06/20 10/06/20 10/06/20 Range/Units 00:00 22:21 22:21 WBC 7.12 (4.0-11.0) K/uL RBC 3.80 L (4.50-5.90) M/uL Hgb 12.3 L (13.0-17.0) g/dL Hct 36.4 L (38.0-50.0) % MCV 95.8 (80.0-98.0) fL MCH 32.4 H (27.0-32.0) pg MCHC 33.8 (31.0-37.0) g/dL RDW Std Deviation 44.9 (28.0-62.0) fl RDW Coeff of Chitra 13 (11.0-15.0) % Plt Count 313 (150-400) K/uL MPV 9.10 (7.40-12.00) fL Neut % (Auto) 68.4 (48.0-80.0) % Lymph % (Auto) 20.8 (16.0-40.0) % [place] % (Auto) 10.1 (0.0-15.0) % Eos % (Auto) 0.4 (0.0-7.0) % Baso % (Auto) 0.3 (0.0-1.5) % Neut # (Auto) 4.9 (1.4-5.7) K/uL Lymph # (Auto) 1.5 (0.6-2.4) K/uL [place] # (Auto) 0.7 (0.0-0.8) K/uL Eos # (Auto) 0.0 (0.0-0.7) K/uL Baso # (Auto) 0.0 (0.0-0.1) K/uL Sodium 139 (136-148) mmol/L Potassium 4.3 (3.5-5.1) mmol/L Chloride 103 (98-107) mmol/L Carbon Dioxide 26.5 (21.0-32.0) mmol/L BUN 19 H (7.0-18.0) mg/dL Creatinine 1.7 H (0.8-1.3) mg/dL Est Cr Clr Drug Dosing 42.94 mL/min Estimated GFR (MDRD) 40.3 ml/min Glucose 207 H (74-106) mg/dL Calcium 9.0 (8.5-10.1) mg/dL Total Bilirubin 0.2 (0.2-1.0) mg/dL AST 22 (15-37) IU/L Alkaline Phosphatase 31 L (46-116) U/L Troponin I < 0.050 (0.000-0.056) ng/mL Total Protein 6.7 (6.4-8.2) g/dL Albumin 3.6 (3.4-5.0) g/dL Globulin 3.1 (2.6-4.0) g/dL Albumin/Globulin Ratio 1.2 (0.9-1.6) Lipase 114 (73-393) U/L Meds: Medications Generic Name Dose Route Start Last Admin Trade Name Freq PRN Reason Stop Dose Admin Sodium Chloride 10 ml 10/06/20 22:06 10/06/20 22:14 Sodium Chloride 0.9% 10 Ml Syringe FLUSH 10 ml ASDIRECTED PRN Administration Keep Vein Open Sodium Chloride 2.5 ml 10/06/20 22:06 10/06/20 22:13 Sodium Chloride 0.9% 2.5 Ml Syringe FLUSH 2.5 ml ASDIRECTED PRN Administration Keep Vein Open Discontinued Medications Generic Name Dose Route Start Last Admin Trade Name Freq PRN Reason Stop Dose Admin Sodium Chloride 1,000 mls @ 999 mls/hr 10/06/20 22:06 10/06/20 22:13 Normal Saline IV 10/06/20 23:06 999 mls/hr .Bolus ONE Administration Metronidazole 500 mg 10/06/20 23:53 10/07/20 00:15 Metronidazole 250 Mg Tab PO 10/06/20 23:54 500 mg ONETIME ONE Administration Ondansetron HCl 4 mg 10/06/20 22:06 10/06/20 22:13 Ondansetron 4 Mg/2 Ml Sdv IVPUSH 10/06/20 22:07 4 mg ONETIME ONE Administration Ondansetron HCl 4 mg 10/06/20 23:53 10/07/20 00:15 Ondansetron 4 Mg/2 Ml Sdv IVPUSH 10/06/20 23:54 4 mg ONETIME ONE Administration Departure - Departure Time of Disposition: 01:06 Disposition: Home, Self-Care 01 Condition: Good Clinical Impression: Diverticulitis, Nausea - Discharge Information Instructions: Nausea, Adult, Diverticulitis Referrals: Wei Page MD [Primary Care Provider] - Forms: ED Department Discharge Additional Instructions: Your seen and evaluated in the ER today secondary to nausea most likely from your diverticulitis with confounding factors of current antibiotic use as well as diet. Please maintain an extremely bland diet for the next 48 hours. You can use your Zofran 1 tablet dissolved under your tongue every 4 hours as needed for nausea. Please call see your doctor next possible appointment. The following information is given to patients seen in the emergency department who are being discharged to home. This information is to outline your options for follow-up care. We provide all patients seen in our emergency department with a follow-up referral. The need for follow-up, as well as the timing and circumstances, are variable depending upon the specifics of your emergency department visit. If you don't have a primary care physician on staff, we will provide you with a referral. We always advise you to contact your personal physician following an emergency department visit to inform them of the circumstance of the visit and for follow-up with them and/or the need for any referrals to a consulting specialist. The emergency department will also refer you to a specialist when appropriate. This referral assures that you have the opportunity for follow-up care with a specialist. All of these measure are taken in an effort to provide you with optimal care, which includes your follow-up. Under all circumstances we always encourage you to contact your private physician who remains a resource for coordinating your care. When calling for follow-up care, please make the office aware that this follow-up is from your recent emergency room visit. If for any reason you are refused follow-up, please contact the [facility] Emergency Department at and asked to speak to the emergency department charge nurse. [facility] [address] [place] [id number] [facility] [address] [place] [id number] Sepsis Event Note (ED) - Evaluation Sepsis Screening Result: No Definite Risk - Focused Exam Vital Signs: Vital Signs Temp Pulse Resp BP Pulse Ox 10/07/20 00:55 112/60 10/07/20 00:25 116/68 10/07/20 00:23 108/66 10/06/20 21:52 97.1 F 107 H 18 96/64 95 - My Orders Last 24 Hours: My Active Orders 10/06/20 22:06 Sodium Chloride 0.9% [Saline Flush] 10 ml FLUSH ASDIRECTED PRN Sodium Chloride 0.9% [Saline Flush] 2.5 ml FLUSH ASDIRECTED PRN Saline Lock Insert [OM.PC] Stat 10/07/20 00:03 EKG Documentation Completion [RC] AM - Assessment/Plan Last 24 Hours: My Active Orders 10/06/20 22:06 Sodium Chloride 0.9% [Saline Flush] 10 ml FLUSH ASDIRECTED PRN Sodium Chloride 0.9% [Saline Flush] 2.5 ml FLUSH ASDIRECTED PRN Saline Lock Insert [OM.PC] Stat 10/07/20 00:03 EKG Documentation Completion [RC] AM
--- NOTE | 2020-10-06 23:46 | CT ---
INDICATION: Nausea. Recent diagnosis of diverticulitis TECHNIQUE: CT abdomen and pelvis without contrast. COMPARISON: None available FINDINGS: Lower chest: A right middle lobe calcified granuloma. Liver: Unremarkable. Spleen: Unremarkable. Pancreas: Unremarkable. Gallbladder and bile ducts: Cholelithiasis. Adrenal glands: Unremarkable. Kidneys: No hydronephrosis. A 2 mm nonobstructive left renal calcification. A 1.7 x 1.3 cm left renal cyst. No discrete ureteral calcifications. GI tract: No bowel obstruction. The cecum is located in the anterior right mid abdomen. The appendix is not seen. Left colonic diverticulosis with slight focal stranding adjacent to a posterior sigmoid colon diverticulum consistent with mild, early or resolving, diverticulitis. Semi liquid stool in the right colon suggestive of a diarrheal illness. Vascular structures: Mild atherosclerotic changes. Focal dilatation of the celiac trunk measuring 1.4 cm. Lymph nodes: No abnormally enlarged lymph nodes. A borderline portacaval lymph node, nonspecific. Miscellaneous: No significant free fluid or free air. Small fat containing inguinal hernias. Pelvic Organs: Enlarged prostate, protruding into the bladder base. Mild bladder wall thickening versus under distention. A small calcification along the right bladder wall. Bones: Degenerative changes in the spine and hips. IMPRESSION: Findings consistent with mild, early or resolving, sigmoid diverticulitis. Semi liquid stool in the colon suggestive of a diarrheal illness. Correlate clinically to exclude superimposed enteritis. Cholelithiasis. A small nonobstructive left renal calcification. No obstructive uropathy. Mild bladder wall thickening could be related to chronic outlet obstruction. Correlate with urinalysis. An enlarged prostate. Please note that all CT scans at this facility use dose modulation, iterative reconstruction, and/or weight-based dosing when appropriate to reduce radiation dose to as low as reasonably achievable. Dictated by Cain Ibrahim MD @ Oct 06 2020 11:28PM Signed by Dr. Cain Ibrahim @ Oct 06 2020 11:44PM
[2020-10-06] MEDS ORDERED: metroNIDAZOLE 250 MG Tab PO ONE (23:53)
[2020-10-07 01:01] VITALS: BP 112/60
[2020-10-07 01:19] VITALS: PULSE 90
== END 2020-10-07 01:17 | disposition home or self-care (01) ==
LOC: MW.ED 21:40
DX: K57.32 Diverticulitis of large intestine without perforation or abscess without bleeding (principal); I10 Essential (primary) hypertension; E11.9 Type 2 diabetes mellitus without complications; E78.5 Hyperlipidemia, unspecified; R11.0 Nausea; E78.00 Pure hypercholesterolemia, unspecified; E66.9 Obesity, unspecified; Z68.33 Body mass index [BMI] 33.0-33.9, adult; Z88.8 Allergy status to other drugs, medicaments and biological substances; Z88.1 Allergy status to other antibiotic agents; Z91.040 Latex allergy status; Z79.82 Long term (current) use of aspirin; Z79.4 Long term (current) use of insulin; Z79.899 Other long term (current) drug therapy
CPT/HCPCS: 36415; 74176; 80053; 83690; 84484; 85025; 93005; 96374; 96376; 99284; A9270; J2405; J7030

== ENCOUNTER 2020-10-09 22:36 | Emergency (ER) | payer MEDICARE, OTHER ==
[2020-10-09] MEDS ORDERED: Sodium Chloride 0.9% 1,000 ML IV ONE (22:51)
[2020-10-09] MEDS ORDERED: diphenhydrAMINE 50 MG/ML SDV IVPUSH ONE (22:51)
[2020-10-09] MEDS ORDERED: Sodium Chloride 0.9% 2.5 ML Syringe FLUSH PRN (22:51)
[2020-10-09] MEDS ORDERED: Sodium Chloride 0.9% 10 ML Syringe FLUSH PRN (22:51)
[2020-10-09] MEDS ORDERED: Prochlorperazine 10 MG/2 ML SDV IVPUSH ONE (22:54)
--- NOTE | 2020-10-09 23:26 | CT ---
INDICATION: Nausea and headache for 1 week TECHNIQUE: CT Head without i.v. contrast. Coronal and sagittal reformats were obtained. COMPARISON: None FINDINGS: CSF space: Unremarkable for age. Brain: No evidence of mass, acute infarction or hemorrhage is seen. No mass-effect or midline shift is seen. Mild diffuse cortical atrophy is noted. The brain parenchyma is otherwise normal in appearance with preservation of the levin-white matter junction. Calvarium: The visualized paranasal sinuses are well aerated. The mastoid air cells are clear. The visualized orbits are grossly unremarkable. The calvarium is unremarkable in appearance with no fractures identified. IMPRESSION: 1. No evidence of acute infarction, intracranial hemorrhage, or mass-effect seen. Please note that all CT scans at this facility use dose modulation, iterative reconstruction, and/or weight-based dosing when appropriate to reduce radiation dose to as low as reasonably achievable. Dictated by: Jamal Schmitt MD @ 10/09/2020 23:25:44 (Electronically Signed)
[2020-10-10 00:35] VITALS: BP 106/61
[2020-10-10 00:39] LABS: BLOOD UREA NITROGEN,BUN 20 mg/dL (7.0-18.0); CARBON DIOXIDE,CO2 23.6 mmol/L (21.0-32.0); CHLORIDE,CL 102 mmol/L (98-107); GLUCOSE RANDOM 139 mg/dL (74-106); LIPASE 68 U/L (73-393); POTASSIUM,K 3.9 mmol/L (3.5-5.1); SODIUM,NA 139 mmol/L (136-148)
--- NOTE | 2020-10-10 01:12 | EDM.PDOC ---
ED HPI GENERAL MEDICAL PROBLEM - General Chief Complaint: Abdominal Pain Stated Complaint: NAUSEA, NECK PAIN, HEADACHE Time Seen by Provider: 10/09/20 22:50 - History of Present Illness INITIAL COMMENTS - FREE TEXT/NARRATIVE: HISTORY AND PHYSICAL: History of present illness: This is a 69-year-old gentleman who has been suffering with nausea for approximately 1 week now. Patient was diagnosed with diverticulitis last week and was started on ciprofloxacin and Flagyl to treat his nausea. Patient initially was given antiemetics that were discontinued by his primary care doctor secondary to I believe the concerns for dystonia. Patient presented to the ED and was seen by me several days ago secondary to nausea. During that evaluation there was no evidence of severe dehydration. Patient was given Zofran IV, IV fluids, labs were normal, felt much better and was discharged home. Patient presented back to the ER approximately 1 day later with recurrence of his nausea being extremely severe. Patient had not had any emesis and clinically still did not look dehydrated. Patient was worked up again and had a CT scan of his abdomen pelvis by me during his second visit which was unremarkable. And revealed significant improvement in his diverticulitis without any progression abscess perforation or other pathology that would explain his symptoms. Patient felt better and was discharged home. Patient presents to the ER today approximately 2 days after his last visit with severe nausea once again. Patient has 1 last dose of Flagyl. Patient has an appointment to [facility] his primary care physician. Patient reports he has not been having any emesis however he has had decreased p.o. intake secondary to severe nausea. Patient reports today he also had a headache and did not feel well. Patient denies any double vision or blurred vision. Patient denies any chest pain or shortness of breath. Patient denies any recent fevers, shakes, chills, dysuria, frequency, urgency, URI symptoms, cough. Review of systems: As per history of present illness and below otherwise all systems reviewed and negative. Past medical history: As per history of present illness and as reviewed below otherwise noncontributory. Surgical history: As per history of present illness and as reviewed below otherwise noncontributory. Social history: No reported history of drug or alcohol abuse. Family history: As per history of present illness and as reviewed below otherwise noncontributory. Physical exam: This patient was seen and evaluated during the 2019 SARS-CoV-2 novel coronavirus pandemic period. Community viral transmission is ongoing at time of this encounter and the emergency department is operating under pandemic response procedures. Constitutional: Patient is oriented to person, place, and time. Appears well- developed and well-nourished. No distress. HEENT: Moist mucous membranes Head: Normocephalic and atraumatic Eyes: Right eye exhibits no discharge. Left eye exhibits no discharge. No scleral icterus Neck: Normal range of motion. No tracheal deviation present. Cardiovascular: Normal rate and regular rhythm. Pulmonary: Effort normal, no respiratory distress. Abd: Soft, nondistended, no rebound/guarding, no psoas or obturator signs, no tenderness at Mcberney's point, no Cuadra's sign. Pt does not present with an exam that would be consistent with an acute surgical abdomen at this time, nontender to palpation Musculoskeletal: Normal range of motion Neurologic: Alert and oriented to person, place and time. Skin: [place], warm and dry. Psychiatric: Normal mood and affect. Behavior is normal. Judgment and thought content normal. Nursing note and vital signs have been reviewed Diagnostics: CBC, CMP normal Covid: Negative CT scan of the head reveals no evidence of increased pressures, bleed, infarct Therapeutics: NSS x1 L, Benadryl, Compazine Assessment and plan: 69-year-old gentleman who presents ER today for reevaluation of nausea. Etiology of his nausea is unclear however it appears most likely it is related to the Flagyl which she is taking. Patient reports that he spoke to his friend who is a physician and also was told that it was likely secondary to the antibiotic that he needed to take for his diverticulitis. Here in the ED, the patient was given IV fluids, Compazine and Benadryl with significant improvement in his symptoms. Patient reports that he feels much better but is concerned that when he goes home his symptoms will return. Patient has no evidence of an acute surgical abdomen at this time. I discussed with the patient and has recommended that he stop taking his Flagyl since he only has 1 day left to see if that might improve his symptoms. Patient was encouraged to keep his appointment tomorrow with his primary care physician as scheduled. Reassessment at the time of disposition demonstrates that the patient is in no acute distress. The patient has remained stable throughout the entire ED visit and is without objective evidence for acute process requiring urgent intervention or hospitalization. The patient is stable for discharge, counseling is provided as documented above, discussed symptomatic treatment and specific conditions for return. I have spoken with the patient/caregiver and discussed todays findings, in addition to providing specific details for the plan of care. Questions are answered and there is agreement with the plan. Definitive disposition and diagnosis as appropriate pending reevaluation and review of above. Anterior Head Pain Score (Numeric/FACES): 10 - Related Data Allergies Allergy/AdvReac Type Severity Reaction Status Date / Time atorvastatin calcium Allergy Hives Verified 10/09/20 22:47 [From Lipitor] cefazolin sodium [From Ancef] Allergy Hives Verified 10/09/20 22:47 latex Allergy Rash Verified 10/09/20 22:47 Home Meds: Home Meds Ascorbic Acid/Bioflavonoids [Vit C-Bioflavonoids SA] 1,000 mg PO QAM 06/25/14 [History] Aspirin [[place] Chewable Aspirin] 81 mg PO QAM 06/25/14 [History] Fenofibrate Nanocrystallized [Fenofibrate] 145 mg PO BEDTIME 06/25/14 [History] Fish Oil/[place]-3 Fatty Acids [Fish Oil] 1,200 mg PO QAM 06/25/14 [History] Hydrochlorothiazide/Lisinopril [Lisinopril/HCTZ 20-12.5 MG] 1 tab PO QAM 06/25/14 [History] amLODIPine Besylate [Amlodipine Besylate] 10 mg PO QAM 06/25/14 [History] metFORMIN [Glucophage] 1,000 mg PO BID 06/25/14 [History] Multivitamin [Multivitamins] 1 tab PO DAILY 06/18/16 [History] Rosuvastatin Calcium 20 mg PO DAILY 06/18/16 [History] Ciprofloxacin [Ciprofloxacin HCl] 500 mg PO BID 10 Days #20 tab 09/28/20 [Rx] Finasteride [Proscar] 5 mg PO DAILY 09/28/20 [History] Insulin Glarg,Human.Rec.Analog [Lantus] 70 units INJECT BEDTIME 09/28/20 [History] Insulin Lispro [Humalog] 1 dose INJECT ASDIRECTED 09/28/20 [History] Metoclopramide HCl [Reglan] 10 mg PO QID PRN #12 tablet 04/08/21 [Rx] Tamsulosin HCl [Flomax] 0.8 mg PO DAILY 09/28/20 [History] metroNIDAZOLE [Flagyl] 500 mg PO Q8H 10 Days #30 tab 09/28/20 [Rx] polyethylene glycoL 3350 [MiraLAX] 17 gm PO DAILY #1 cont 09/28/20 [Rx] Ondansetron [Zofran ODT] 4 mg PO Q6H PRN #12 tab.dis 10/06/20 [Rx] Past Medical History HEENT History: Reports: Impaired Vision Other HEENT History: wears glasses Cardiovascular History: Reports: High Cholesterol, Hypertension Respiratory History: Reports: Sleep Apnea Other Respiratory History: uses BPAP Gastrointestinal History: Reports: None Genitourinary History: Reports: None Musculoskeletal History: Reports: Back Pain, Chronic Neurological History: Reports: None Psychiatric History: Reports: None Endocrine/Metabolic History: Reports: Diabetes, Type II, Obesity/BMI 30+ 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 Hematologic History: Reports: Blood Transfusion(s) Other Hematologic History: blood transfusion following nose bleed at 10 yrs old Immunologic History: Reports: None Oncologic (Cancer) History: Reports: None Dermatologic History: Reports: None - Infectious Disease History Infectious Disease History: Reports: Chicken Pox, Measles - Past Surgical History Head Surgeries/Procedures: Reports: None HEENT Surgical History: Reports: Cataract Surgery, Tonsillectomy Cardiovascular Surgical History: Reports: None Respiratory Surgical History: Reports: None GI Surgical History: Reports: None Male Surgical History: Reports: None Musculoskeletal Surgical History: Reports: Arthroscopic Knee Social & Family History - Family History Family Medical History: No Pertinent Family History - Tobacco Use Tobacco Use Status *Q: Never Tobacco User - Caffeine Use Caffeine Use: Reports: None - Recreational Drug Use Recreational Drug Use: No ED ROS GENERAL - Review of Systems Review Of Systems: See Below ED EXAM, GENERAL - Physical Exam Exam: See Below Course - Vital Signs Last Recorded V/S: Last Vital Signs Temp 96.6 F L 10/09/20 22:48 Pulse 83 10/10/20 00:34 Resp 20 10/10/20 00:34 BP 106/61 10/10/20 00:34 Pulse Ox 94 L 10/10/20 00:34 - Orders/Labs/Meds Orders: Active Orders 24 hr Category Date Time Status COVID-19/FLU A+B [MOLEC] Stat Lab 10/10/20 00:40 Received UA W/LOUIE RFLX IF INDICATED [URIN] Stat Lab 10/09/20 22:52 Ordered Sodium Chloride 0.9% [Saline Flush] Med 10/09/20 22:51 Active 10 ml FLUSH ASDIRECTED PRN Sodium Chloride 0.9% [Saline Flush] Med 10/09/20 22:51 Active 2.5 ml FLUSH ASDIRECTED PRN Saline Lock Insert [OM.PC] Stat Oth 10/09/20 22:51 Ordered Medication Orders Sodium Chloride (Sodium Chloride 0.9% 10 Ml Syringe) 10 ml FLUSH ASDIRECTED PRN PRN Reason: Keep Vein Open Last Admin: 10/10/20 00:00 Dose: 10 ml Documented by: VENKAT Sodium Chloride (Sodium Chloride 0.9% 2.5 Ml Syringe) 2.5 ml FLUSH ASDIRECTED PRN PRN Reason: Keep Vein Open Last Admin: 10/10/20 00:01 Dose: 2.5 ml Documented by: VENKAT Labs: Laboratory Tests 10/09/20 10/09/20 Range/Units 23:50 23:50 WBC 7.17 (4.0-11.0) K/uL RBC 4.27 L (4.50-5.90) M/uL Hgb 13.7 (13.0-17.0) g/dL Hct 40.7 (38.0-50.0) % MCV 95.3 (80.0-98.0) fL MCH 32.1 H (27.0-32.0) pg MCHC 33.7 (31.0-37.0) g/dL RDW Std Deviation 48.9 (28.0-62.0) fl RDW Coeff of Chitra 14 (11.0-15.0) % Plt Count 322 (150-400) K/uL MPV 9.90 (7.40-12.00) fL Neut % (Auto) 62.2 (48.0-80.0) % Lymph % (Auto) 27.1 (16.0-40.0) % Bell % (Auto) 9.9 (0.0-15.0) % Eos % (Auto) 0.7 (0.0-7.0) % Baso % (Auto) 0.1 (0.0-1.5) % Neut # (Auto) 4.5 (1.4-5.7) K/uL Lymph # (Auto) 1.9 (0.6-2.4) K/uL Bell # (Auto) 0.7 (0.0-0.8) K/uL Eos # (Auto) 0.1 (0.0-0.7) K/uL Baso # (Auto) 0.0 (0.0-0.1) K/uL Nucleated RBC % 0.0 /100WBC Nucleated RBCs # 0 K/uL Sodium 139 (136-148) mmol/L Potassium 3.9 (3.5-5.1) mmol/L Chloride 102 (98-107) mmol/L Carbon Dioxide 23.6 (21.0-32.0) mmol/L BUN 20 H (7.0-18.0) mg/dL Creatinine 1.4 H (0.8-1.3) mg/dL Est Cr Clr Drug Dosing 52.14 mL/min Estimated GFR (MDRD) 50.4 ml/min Glucose 139 H (74-106) mg/dL Calcium 9.5 (8.5-10.1) mg/dL Total Bilirubin 0.4 (0.2-1.0) mg/dL AST 25 (15-37) IU/L ALT 32 (14-63) IU/L Alkaline Phosphatase 26 L (46-116) U/L Troponin I < 0.050 (0.000-0.056) ng/mL Total Protein 6.7 (6.4-8.2) g/dL Albumin 3.6 (3.4-5.0) g/dL Globulin 3.1 (2.6-4.0) g/dL Albumin/Globulin Ratio 1.2 (0.9-1.6) Lipase 68 L (73-393) U/L Meds: Medications Generic Name Dose Route Start Last Admin Trade Name Freq PRN Reason Stop Dose Admin Sodium Chloride 10 ml 10/09/20 22:51 10/10/20 00:00 Sodium Chloride 0.9% 10 Ml Syringe FLUSH 10 ml ASDIRECTED PRN Administration Keep Vein Open Sodium Chloride 2.5 ml 10/09/20 22:51 10/10/20 00:01 Sodium Chloride 0.9% 2.5 Ml Syringe FLUSH 2.5 ml ASDIRECTED PRN Administration Keep Vein Open Discontinued Medications Generic Name Dose Route Start Last Admin Trade Name Freq PRN Reason Stop Dose Admin Diphenhydramine HCl 25 mg 10/09/20 22:51 10/10/20 00:03 Diphenhydramine 50 Mg/Ml Sdv IVPUSH 10/09/20 22:52 25 mg ONETIME ONE Administration Sodium Chloride 1,000 mls @ 999 mls/hr 10/09/20 22:51 10/10/20 00:02 Normal Saline IV 10/09/20 23:51 999 mls/hr .Bolus ONE Administration Prochlorperazine Edisylate 10 mg 10/09/20 22:54 10/10/20 00:03 Prochlorperazine 10 Mg/2 Ml Sdv IVPUSH 10/09/20 22:55 10 mg ONETIME ONE Administration Departure - Departure Time of Disposition: 01:11 Disposition: Home, Self-Care 01 Condition: Good Clinical Impression: Nausea, Diverticulitis - Discharge Information Instructions: Nausea, Adult, Diverticulitis Referrals: Wei Page MD [Primary Care Provider] - Additional Instructions: You were seen and evaluated in the ER today secondary to severe nausea. This is most likely related to the Flagyl that you are taking for your diverticulitis. Since you only have 1 day left and you are having significant side effects from the Flagyl, I would recommend that you stop taking it immediately. Please continue taking the Zofran that you have at home and see if that helps with the Flagyl no longer being taken. Please keep your appointment as scheduled tomorrow with your primary care physician. The following information is given to patients seen in the emergency department who are being discharged to home. This information is to outline your options for follow-up care. We provide all patients seen in our emergency department with a follow-up referral. The need for follow-up, as well as the timing and circumstances, are variable de pending upon the specifics of your emergency department visit. If you don't have a primary care physician on staff, we will provide you with a referral. We always advise you to contact your personal physician following an emergency department visit to inform them of the circumstance of the visit and for follow-up with them and/or the need for any referrals to a consulting specialist. The emergency department will also refer you to a specialist when appropriate. This referral assures that you have the opportunity for follow-up care with a specialist. All of these measure are taken in an effort to provide you with optimal care, which includes your follow-up. Under all circumstances we always encourage you to contact your private physician who remains a resource for coordinating your care. When calling for follow-up care, please make the office aware that this follow-up is from your recent emergency room visit. If for any reason you are refused follow-up, please contact the [facility] Emergency Department at and asked to speak to the emergency department charge nurse. [facility] [address] [place] [id number] [facility] [address] [place] [id number] Sepsis Event Note (ED) - Evaluation Sepsis Screening Result: No Definite Risk - Focused Exam Vital Signs: Vital Signs Temp Pulse Resp BP Pulse Ox 10/10/20 00:34 83 20 106/61 94 L 10/09/20 23:45 82 20 110/67 95 10/09/20 22:48 96.6 F L 107 H 18 133/75 - My Orders Last 24 Hours: My Active Orders 10/09/20 22:51 Sodium Chloride 0.9% [Saline Flush] 10 ml FLUSH ASDIRECTED PRN Sodium Chloride 0.9% [Saline Flush] 2.5 ml FLUSH ASDIRECTED PRN Saline Lock Insert [OM.PC] Stat 10/09/20 22:52 UA W/LOUIE RFLX IF INDICATED [URIN] Stat 10/10/20 00:40 COVID-19/FLU A+B [MOLEC] Stat - Assessment/Plan Last 24 Hours: My Active Orders 10/09/20 22:51 Sodium Chloride 0.9% [Saline Flush] 10 ml FLUSH ASDIRECTED PRN Sodium Chloride 0.9% [Saline Flush] 2.5 ml FLUSH ASDIRECTED PRN Saline Lock Insert [OM.PC] Stat 10/09/20 22:52 UA W/LOUIE RFLX IF INDICATED [URIN] Stat 10/10/20 00:40 COVID-19/FLU A+B [MOLEC] Stat
[2020-10-10 01:23] LABS: CORONAVIRUS COVID-19 NAA NEGATIVE (NEGATIVE); INFLUENZA A NAA NEGATIVE (NEGATIVE); INFLUENZA B NAA NEGATIVE (NEGATIVE)
[2020-10-10 01:42] VITALS: PULSE 96
== END 2020-10-10 01:42 | disposition home or self-care (01) ==
LOC: MW.ED 22:36
DX: K57.92 Diverticulitis of intestine, part unspecified, without perforation or abscess without bleeding (principal); R11.0 Nausea; E78.00 Pure hypercholesterolemia, unspecified; I10 Essential (primary) hypertension; E11.9 Type 2 diabetes mellitus without complications; E66.9 Obesity, unspecified; Z68.33 Body mass index [BMI] 33.0-33.9, adult; Z88.8 Allergy status to other drugs, medicaments and biological substances; Z88.1 Allergy status to other antibiotic agents; Z91.040 Latex allergy status; Z79.82 Long term (current) use of aspirin; Z79.899 Other long term (current) drug therapy; Z79.4 Long term (current) use of insulin; Z20.822 Contact with and (suspected) exposure to COVID-19
CPT/HCPCS: 0240U; 36415; 70450; 80053; 83690; 84484; 85025; 96374; 96375; 99284; J0780; J1200; J7030

== ENCOUNTER 2020-11-02 21:33 | Emergency (ER) | payer MEDICARE, OTHER ==
[2020-11-02] MEDS ORDERED: Ketorolac 15 MG/ML SDV IVPUSH ONE (22:10)
[2020-11-02] MEDS ORDERED: Sodium Chloride 0.9% 2.5 ML Syringe FLUSH PRN (22:10)
[2020-11-02] MEDS ORDERED: Sodium Chloride 0.9% 1,000 ML IV ONE (22:10)
[2020-11-02] MEDS ORDERED: Sodium Chloride 0.9% 10 ML Syringe FLUSH PRN (22:10)
[2020-11-02 22:29] LABS: CARBON DIOXIDE,CO2 24.5 mmol/L (21.0-32.0); POTASSIUM,K 4.2 mmol/L (3.5-5.1)
--- NOTE | 2020-11-03 00:07 | CT ---
INDICATION: Left lower quadrant abdominal pain TECHNIQUE: CT Abdomen and pelvis without i.v. contrast. Coronal and sagittal reformats were obtained. COMPARISON: 10/06/2020 FINDINGS: Lower chest: There is a calcified right cardiophrenic lymph node present measuring 8 mm. Liver: Unremarkable. Spleen: Unremarkable. Pancreas: Unremarkable. Gallbladder: Punctate calcified gallstones are noted. Kidney: There is a hypodense lesion in the midzone of the left kidney measuring 2.2 cm in diameter without interval change. Adrenal: Unremarkable. Bowel: Diverticulosis with wall thickening and moderate surrounding inflammatory changes are present in the mid descending and mid sigmoid colon. The appendix is normal in appearance and size. Vascular: Unremarkable. Lymph: See above. Peritoneum: Unremarkable. No pneumoperitoneum is seen. No significant ascites is noted. Pelvis: Massive, stable enlargement of the prostate gland is noted. Soft tissue: Unremarkable. Bone: Unremarkable for age. IMPRESSIONS: 1. Diverticulosis with wall thickening and moderate surrounding inflammatory changes are present in the mid descending and mid sigmoid colon. Findings may represent multifocal regions of diverticulitis or colitis. 2. Massive, stable enlargement of the prostate gland is noted. Correlation with physical examination and PSA levels are recommended. Dictated by Jamal Schmitt MD @ 11/03/2020 12:04:22 AM Please note that all CT scans at this facility use dose modulation, iterative reconstruction, and/or weight-based dosing when appropriate to reduce radiation dose to as low as reasonably achievable. Dictated by: Jamal Schmitt MD @ 11/03/2020 00:04:35 (Electronically Signed)
[2020-11-03] MEDS ORDERED: Amoxicillin/Clavulanate K 875-125 MG Tab PO ONE (00:39)
--- NOTE | 2020-11-03 00:45 | EDM.PDOC ---
ED HPI GENERAL MEDICAL PROBLEM - General Chief Complaint: Abdominal Pain Stated Complaint: LT SIDE PAIN Time Seen by Provider: 11/02/20 22:03 - History of Present Illness INITIAL COMMENTS - FREE TEXT/NARRATIVE: HISTORY AND PHYSICAL: History of present illness: This is a 70-year-old gentleman with history significant for diverticulitis who presents ER today secondary to pain to his left lower quadrant that was sharp in nature that started earlier today with associated nausea and decreased p.o. intake. Patient reports no recent fevers, shakes, chills. Patient reports nausea with no vomiting or diarrhea. Patient denies any melena or bright red blood per rectum. Patient has any chest pain or shortness of breath. Patient has any recent cough cold or rhinorrhea. Patient denies any dysuria, frequency, urgency, hematuria. Patient denies any scrotal or testicular discomfort. Patient reports pain is not exacerbated or relieved with position, meals, walking. Patient reports that the pain is somewhat the similar to his prior diverticulitis pain. Patient reports that he has been seen and evaluated by Dr. Venegas and was started recently on sertraline for anxiety which he reports has significantly improved his complaints of nausea that he has had in the recent past. Review of systems: As per history of present illness and below otherwise all systems reviewed and negative. Past medical history: As per history of present illness and as reviewed below otherwise noncontributory. Surgical history: As per history of present illness and as reviewed below otherwise noncontributory. Social history: No reported history of drug abuse. Family history: As per history of present illness and as reviewed below otherwise noncontributory. Physical exam: This patient was seen and evaluated during the 2019 SARS-CoV-2 novel coronavirus pandemic period. Community viral transmission is ongoing at time of this encounter and the emergency department is operating under pandemic response procedures. Constitutional: Patient is oriented to person, place, and time. Appears well- developed and well-nourished. No distress. HEENT: Moist mucous membranes Head: Normocephalic and atraumatic Eyes: Right eye exhibits no discharge. Left eye exhibits no discharge. No scleral icterus Neck: Normal range of motion. No tracheal deviation present. Cardiovascular: Normal rate and regular rhythm. Pulmonary: Effort normal, no respiratory distress. Abd: Soft, nondistended, no rebound/guarding, no psoas or obturator signs, no tenderness at Mcberney's point, no Cuadra's sign. Pt does not present with an exam that would be consistent with an acute surgical abdomen at this time, tenderness to palpation left lower quadrant Musculoskeletal: Normal range of motion Neurologic: Alert and oriented to person, place and time. Skin: [place], warm and dry. Psychiatric: Normal mood and affect. Behavior is normal. Judgment and thought content normal. Nursing note and vital signs have been reviewed Diagnostics: CT scan of the abdomen pelvis reveals inflammatory changes in the sigmoid and descending colon consistent with colitis/diverticulitis. Therapeutics: Toradol 15 mg IV for pain Zofran 4 mg IV for nausea NSS x1 L Patient required treatment with intravenous normal saline solution secondary to clinical evidence of dehydration as manifested by history and physical examination. Assessment and plan: this is a 70-year-old gentleman who presents ER today complaining of left lower quadrant abdominal pain. Patient's labs are all reviewed and reveal a elevated BUN/creatinine from his baseline. This may be related to dehydration from patient's nausea and decreased p.o. intake today. Patient CT scan is consistent with recurrence of his diverticulitis. I have discussed with the patient my concern with his elevated BUN/creatinine, dehydration, recurrent diverticulitis that I felt he needed to be admitted to the hospital for hydration and monitoring his kidney function. At this time, the patient does not wish to be admitted to the hospital and does not want IV antibiotics. Patient is requesting to be discharged home and wants to try antibiotics again for his diverticulitis. Patient is requesting that we do not start him on the ciprofloxacin and Flagyl that he was given before as he felt that that was a cause for his nausea that he had throughout his treatment for diverticulitis. Despite any highly recommending admission and my belief that he will likely need to return to the ED secondary to my prior experience with him with nausea with diverticulitis, patient is still adamant about not being admitted and would like to attempt outpatient antibiotic use with Augmentin. Utilizing shared decision making, I will agree to respect the patient's autonomy and trial Augmentin for him. Patient was cautioned about returning to the ED if he is unable to keep down p.o. fluids, antibiotics, food over the next 2 to 3 days. Patient was encouraged to return to the ER if he has any increasing abdominal pain or discomfort or any new or concerning symptoms including fevers, vomiting, weakness or any other symptoms of concern. Reassessment at the time of disposition demonstrates that the patient is in no acute distress. The patient has remained stable throughout the entire ED visit and is without objective evidence for acute process requiring urgent intervention or hospitalization. The patient is stable for discharge, counseling is provided as documented above, discussed symptomatic treatment and specific conditions for return. I have spoken with the patient/caregiver and discussed todays findings, in addition to providing specific details for the plan of care. Questions are answered and there is agreement with the plan. Definitive disposition and diagnosis as appropriate pending reevaluation and review of above. Left Lower Abdomen Pain Score (Numeric/FACES): 6 - Related Data Allergies Allergy/AdvReac Type Severity Reaction Status Date / Time atorvastatin calcium Allergy Hives Verified 11/02/20 21:47 [From Lipitor] cefazolin sodium [From Ancef] Allergy Hives Verified 11/02/20 21:47 latex Allergy Rash Verified 11/02/20 21:47 Home Meds: Home Meds Ascorbic Acid/Bioflavonoids [Vit C-Bioflavonoids SA] 1,000 mg PO QAM 06/25/14 [History] Aspirin [[place] Chewable Aspirin] 81 mg PO QAM 06/25/14 [History] Fenofibrate Nanocrystallized [Fenofibrate] 145 mg PO BEDTIME 06/25/14 [History] Fish Oil/[place]-3 Fatty Acids [Fish Oil] 1,200 mg PO QAM 06/25/14 [History] Hydrochlorothiazide/Lisinopril [Lisinopril/HCTZ 20-12.5 MG] 1 tab PO QAM 06/25/14 [History] amLODIPine Besylate [Amlodipine Besylate] 10 mg PO QAM 06/25/14 [History] metFORMIN [Glucophage] 1,000 mg PO BID 06/25/14 [History] Multivitamin [Multivitamins] 1 tab PO DAILY 06/18/16 [History] Rosuvastatin Calcium 20 mg PO DAILY 06/18/16 [History] Ciprofloxacin [Ciprofloxacin HCl] 500 mg PO BID 10 Days #20 tab 09/28/20 [Rx] Finasteride [Proscar] 5 mg PO DAILY 09/28/20 [History] Insulin Glarg,Human.Rec.Analog [Lantus] 70 units INJECT BEDTIME 09/28/20 [History] Insulin Lispro [Humalog] 1 dose INJECT ASDIRECTED 09/28/20 [History] Metoclopramide HCl [Reglan] 10 mg PO QID PRN #12 tablet 09/28/20 [Rx] Tamsulosin HCl [Flomax] 0.8 mg PO DAILY 09/28/20 [History] metroNIDAZOLE [Flagyl] 500 mg PO Q8H 10 Days #30 tab 09/28/20 [Rx] polyethylene glycoL 3350 [MiraLAX] 17 gm PO DAILY #1 cont 09/28/20 [Rx] Ondansetron [Zofran ODT] 4 mg PO Q6H PRN #12 tab.dis 10/06/20 [Rx] Sertraline [Zoloft] 50 mg PO DAILY 11/02/20 [History] Past Medical History HEENT History: Reports: Impaired Vision Other HEENT History: wears glasses Cardiovascular History: Reports: High Cholesterol, Hypertension Respiratory History: Reports: Sleep Apnea Other Respiratory History: uses BPAP Gastrointestinal History: Reports: None Genitourinary History: Reports: None Musculoskeletal History: Reports: Back Pain, Chronic Neurological History: Reports: None Psychiatric History: Reports: Anxiety Endocrine/Metabolic History: Reports: Diabetes, Type II, Obesity/BMI 30+ Insulin Pump Model 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: N/A Hematologic History: Reports: Blood Transfusion(s) Other Hematologic History: blood transfusion following nose bleed at 10 yrs old Immunologic History: Reports: None Oncologic (Cancer) History: Reports: None Dermatologic History: Reports: None - Infectious Disease History Infectious Disease History: Reports: Chicken Pox, Measles - Past Surgical History Head Surgeries/Procedures: Reports: None HEENT Surgical History: Reports: Cataract Surgery, Tonsillectomy Cardiovascular Surgical History: Reports: None Respiratory Surgical History: Reports: None GI Surgical History: Reports: None Male Surgical History: Reports: None Musculoskeletal Surgical History: Reports: Arthroscopic Knee Social & Family History - Family History Family Medical History: No Pertinent Family History - Tobacco Use Tobacco Use Status *Q: Never Tobacco User - Caffeine Use Caffeine Use: Reports: Coffee - Recreational Drug Use Recreational Drug Use: No ED ROS GENERAL - Review of Systems Review Of Systems: See Below ED EXAM, GENERAL - Physical Exam Exam: See Below Course - Vital Signs Last Recorded V/S: Last Vital Signs Temp 97.2 F 11/02/20 21:48 Pulse 100 11/02/20 21:48 Resp 16 11/02/20 23:45 BP 120/62 11/02/20 23:45 Pulse Ox 97 11/02/20 23:45 - Orders/Labs/Meds Orders: Active Orders 24 hr Category Date Time Status Amoxicillin/Clavulanate K [Augmentin 875 MG/125 MG] Med 11/03/20 00:39 Once 1 tab PO ONETIME ONE Sodium Chloride 0.9% [Saline Flush] Med 11/02/20 22:10 Active 10 ml FLUSH ASDIRECTED PRN Sodium Chloride 0.9% [Saline Flush] Med 11/02/20 22:10 Active 2.5 ml FLUSH ASDIRECTED PRN Saline Lock Insert [OM.PC] Stat Oth 11/02/20 22:10 Ordered Medication Orders Sodium Chloride (Sodium Chloride 0.9% 10 Ml Syringe) 10 ml FLUSH ASDIRECTED PRN PRN Reason: Keep Vein Open Last Admin: 11/02/20 22:21 Dose: 10 ml Documented by: MARIE Sodium Chloride (Sodium Chloride 0.9% 2.5 Ml Syringe) 2.5 ml FLUSH ASDIRECTED PRN PRN Reason: Keep Vein Open Last Admin: 11/02/20 22:21 Dose: 2.5 ml Documented by: MARIE Labs: Laboratory Tests 11/02/20 11/02/20 11/02/20 Range/Units 22:02 22:02 22:02 WBC 8.29 (4.0-11.0) K/uL RBC 4.18 L (4.50-5.90) M/uL Hgb 13.5 (13.0-17.0) g/dL Hct 38.9 (38.0-50.0) % MCV 93.1 (80.0-98.0) fL MCH 32.3 H (27.0-32.0) pg MCHC 34.7 (31.0-37.0) g/dL RDW Std Deviation 45.1 (28.0-62.0) fl RDW Coeff of [place] 13 (11.0-15.0) % Plt Count 231 (150-400) K/uL MPV 10.20 (7.40-12.00) fL Neut % (Auto) 72.8 (48.0-80.0) % Lymph % (Auto) 17.6 (16.0-40.0) % [place] % (Auto) 8.9 (0.0-15.0) % Eos % (Auto) 0.6 (0.0-7.0) % Baso % (Auto) 0.1 (0.0-1.5) % Neut # (Auto) 6.0 H (1.4-5.7) K/uL Lymph # (Auto) 1.5 (0.6-2.4) K/uL [place] # (Auto) 0.7 (0.0-0.8) K/uL Eos # (Auto) 0.1 (0.0-0.7) K/uL Baso # (Auto) 0.0 (0.0-0.1) K/uL Nucleated RBC % 0.0 /100WBC Nucleated RBCs # 0 K/uL Sodium 135 L (136-148) mmol/L Potassium 4.2 (3.5-5.1) mmol/L Chloride 98 (98-107) mmol/L Carbon Dioxide 24.5 (21.0-32.0) mmol/L BUN 38 H (7.0-18.0) mg/dL Creatinine 2.1 H (0.8-1.3) mg/dL Est Cr Clr Drug Dosing 34.28 mL/min Estimated GFR (MDRD) 31.5 ml/min Glucose 126 H (74-106) mg/dL Calcium 9.2 (8.5-10.1) mg/dL Total Bilirubin 0.5 (0.2-1.0) mg/dL AST 14 L (15-37) IU/L ALT 21 (14-63) IU/L Alkaline Phosphatase 35 L (46-116) U/L Total Protein 7.5 (6.4-8.2) g/dL Albumin 3.7 (3.4-5.0) g/dL Globulin 3.8 (2.6-4.0) g/dL Albumin/Globulin Ratio 1.0 (0.9-1.6) Lipase 57 L (73-393) U/L Urine Color YELLOW Urine Appearance CLEAR Urine pH 5.5 (5.0-8.0) Ur Specific [place] >= 1.030 (1.001-1.035) Urine Protein NEGATIVE (NEGATIVE) mg/dL Urine Glucose (UA) NEGATIVE (NEGATIVE) mg/dL Urine Ketones 15 H (NEGATIVE) mg/dL Urine Occult Blood NEGATIVE (NEGATIVE) Urine Nitrite NEGATIVE (NEGATIVE) Urine Bilirubin NEGATIVE (NEGATIVE) Urine Urobilinogen 0.2 (<2.0) EU/dL Ur Leukocyte Esterase TRACE H (NEGATIVE) Urine RBC 0-2 (0-2/HPF) Urine WBC 0-3 (0-5/HPF) Ur Epithelial Cells OCCASIONAL (NONE-FEW) Urine Bacteria FEW (NEGATIVE) Urine Mucus LIGHT (NONE-MOD) Meds: Medications Generic Name Dose Route Start Last Admin Trade Name Freq PRN Reason Stop Dose Admin Sodium Chloride 10 ml 11/02/20 22:10 11/02/20 22:21 Sodium Chloride 0.9% 10 Ml Syringe FLUSH 10 ml ASDIRECTED PRN Administration Keep Vein Open Sodium Chloride 2.5 ml 11/02/20 22:10 11/02/20 22:21 Sodium Chloride 0.9% 2.5 Ml Syringe FLUSH 2.5 ml ASDIRECTED PRN Administration Keep Vein Open Discontinued Medications Generic Name Dose Route Start Last Admin Trade Name Freq PRN Reason Stop Dose Admin Sodium Chloride 1,000 mls @ 999 mls/hr 11/02/20 22:10 11/02/20 22:21 Normal Saline IV 11/02/20 23:10 999 mls/hr .Bolus ONE Administration Ketorolac Tromethamine 15 mg 11/02/20 22:10 11/02/20 22:21 Ketorolac 15 Mg/Ml Sdv IVPUSH 11/02/20 22:11 15 mg ONETIME ONE Administration Departure - Departure Time of Disposition: 00:45 Disposition: Home, Self-Care 01 Condition: Good Clinical Impression: Diverticulitis, Dehydration, Elevated serum creatinine - Discharge Information Instructions: Diverticulitis, Dehydration, Adult, [id number] Referrals: Wei Page MD [Primary Care Provider] - Additional Instructions: You were seen and evaluated in the ER today secondary to your abdominal discomfort in the left lower abdomen. The studies in the ER today reveal that you have recurrence of your diverticulitis. Although I have recommended admission to the hospital for IV antibiotics secondary to your dehydration, elevated creatinine, recurrence of your diverticulitis, utilizing shared decision-making, we have decided to discharge you to home with Augmentin. This new antibiotic is being utilized since you have requested that we avoid the ciprofloxacin and Flagyl that you were prescribed before secondary to side effects of nausea. Please return to the ER if you have any new or concerning symptoms or feel that you are not improving or your pain worsens. You will also be given a prescription for Zofran to assist you with your nausea. Please make an appointment to see your family doctor in 2 to 3 days for reevaluation of your symptoms and all your blood tests. Augmentin 875 mg twice a day for 10 days Zofran 4 mg ODT every 6 hours as needed for nausea Tramadol 50 mg every 6 hours as needed for abdominal pain. The following information is given to patients seen in the emergency department who are being discharged to home. This information is to outline your options for follow-up care. We provide all patients seen in our emergency department with a follow-up referral. The need for follow-up, as well as the timing and circumstances, are variable depending upon the specifics of your emergency department visit. If you don't have a primary care physician on staff, we will provide you with a referral. We always advise you to contact your personal physician following an emergency department visit to inform them of the circumstance of the visit and for follow-up with them and/or the need for any referrals to a consulting specialist. The emergency department will also refer you to a specialist when appropriate. This referral assures that you have the opportunity for follow-up care with a specialist. All of these measure are taken in an effort to provide you with optimal care, which includes your follow-up. Under all circumstances we always encourage you to contact your private physician who remains a resource for coordinating your care. When calling for follow-up care, please make the office aware that this follow-up is from your recent emergency room visit. If for any reason you are refused follow-up, please contact the [facility] Emergency Department at and asked to speak to the emergency department charge nurse. [facility] [address] [place] [id number] [facility] [address] [place] [id number] Sepsis Event Note (ED) - Evaluation Sepsis Screening Result: No Definite Risk - Focused Exam Vital Signs: Vital Signs Temp Pulse Resp BP Pulse Ox 11/02/20 23:45 16 120/62 97 11/02/20 21:48 97.2 F 100 20 114/65 98 - My Orders Last 24 Hours: My Active Orders 11/02/20 22:10 Sodium Chloride 0.9% [Saline Flush] 10 ml FLUSH ASDIRECTED PRN Sodium Chloride 0.9% [Saline Flush] 2.5 ml FLUSH ASDIRECTED PRN Saline Lock Insert [OM.PC] Stat 11/03/20 00:39 Amoxicillin/Clavulanate K [Augmentin 875 MG/125 MG] 1 tab PO ONETIME ONE - Assessment/Plan Last 24 Hours: My Active Orders 11/02/20 22:10 Sodium Chloride 0.9% [Saline Flush] 10 ml FLUSH ASDIRECTED PRN Sodium Chloride 0.9% [Saline Flush] 2.5 ml FLUSH ASDIRECTED PRN Saline Lock Insert [OM.PC] Stat 11/03/20 00:39 Amoxicillin/Clavulanate K [Augmentin 875 MG/125 MG] 1 tab PO ONETIME ONE
[2020-11-03 01:02] VITALS: BP 103/62; PULSE 93
== END 2020-11-03 01:03 | disposition home or self-care (01) ==
LOC: MW.ED 21:33
DX: K57.32 Diverticulitis of large intestine without perforation or abscess without bleeding (principal); E86.0 Dehydration; R74.8 Abnormal levels of other serum enzymes; E78.00 Pure hypercholesterolemia, unspecified; I10 Essential (primary) hypertension; E11.9 Type 2 diabetes mellitus without complications; E66.9 Obesity, unspecified; Z88.1 Allergy status to other antibiotic agents; Z91.040 Latex allergy status; Z79.4 Long term (current) use of insulin; Z88.8 Allergy status to other drugs, medicaments and biological substances; Z79.82 Long term (current) use of aspirin; Z79.899 Other long term (current) drug therapy; Z68.31 Body mass index [BMI] 31.0-31.9, adult
CPT/HCPCS: 36415; 74176; 80053; 81001; 83690; 85025; 96361; 96374; 99284; A9270; J1885; J7030

== ENCOUNTER 2020-11-06 06:38 | Emergency (ER) | payer MEDICARE, OTHER ==
[2020-11-06] MEDS ORDERED: Alum Hydrox/Mag Hydrox/Simeth 15 ML, Lidocaine 2% 5 ML PO ONE ×2 (07:21)
[2020-11-06] MEDS ORDERED: Ondansetron 4 MG/2 ML SDV IVPUSH ONE (07:21)
[2020-11-06] MEDS ORDERED: Famotidine 20 MG/2 ML SDV IVPUSH ONE (07:22)
[2020-11-06] MEDS ORDERED: Dextrose 5%-Lactated Ringers 1,000 ML IV STA (07:26)
[2020-11-06 07:34] LABS: CARBON DIOXIDE,CO2 23.1 mmol/L (21.0-32.0); POTASSIUM,K 4.4 mmol/L (3.5-5.1)
--- NOTE | 2020-11-06 09:24 | EDM.PDOC ---
ED HPI GENERAL MEDICAL PROBLEM - General Chief Complaint: Abdominal Pain Stated Complaint: VOMITING Time Seen by Provider: 11/06/20 07:21 - History of Present Illness INITIAL COMMENTS - FREE TEXT/NARRATIVE: CHIEF COMPLAINT(S): Abdominal pain HISTORY OF PRESENT ILLNESS: This is a 70-year-old man with a past medical history of diverticulitis and recent diagnosis of diverticulitis yesterday on antibiotics who comes to the emergency department with a chief complaint of abdominal pain. The patient states that this is the eighth time that I have had diverticulitis. He states that since leaving the hospital he has not been able to eat anything and that his abdomen is killing him. He describes the location at his stomach. He states that he has some nausea but denies any vomiting. He describes the pain is constant and dull rated 10 out of 10. He states that the pain is exacerbated by eating. He states that he has not taken anything for pain or nausea. He denies any radiation of the pain. He denies any relieving f actors. He states that he did have diarrhea yesterday but has not had diarrhea since. He denies any hematochezia, melena, hematemesis or bilious emesis. He denies any fevers or chills. He denies any other symptoms. REVIEW OF SYSTEMS: Constitutional: Denies fever, chills. Eyes: Denies eye pain Ears, Nose, Mouth, & Throat: Denies earache Cardiovascular: Denies chest pain Respiratory: Denies shortness of breath Gastrointestinal: Positive for stomach abdominal pain and nausea. Denies vomiting, current diarrhea, constipation, hematochezia, melena, hematemesis, bilious emesis Genitourinary: Denies hematuria Skin:Denies a rash MSK: Denies joint pain Neurological: Denies blurred vision Psychiatric: Denies depression PAST MEDICAL HISTORY: As per history of present illness and as reviewed below otherwise noncontributory. SURGICAL HISTORY: As per history of present illness and as reviewed below otherwise noncontributory. SOCIAL HISTORY: As per history of present illness and as reviewed below otherwise noncontributory. FAMILY HISTORY: As per history of present illness and as reviewed below otherwise noncontributory. EXAMINATION OF ORGAN SYSTEMS/BODY AREAS: Constitutional: Blood pressure was 119/71, heart rate 92, respiratory rate 20 with an oxygen saturation 9 9% on room air. Temperature 35.8 General: Middle-aged gentleman who is heavy breathing but speaking in full sen tences. Psychiatric: Appears anxious but is cooperative Eyes: No scleral icterus or conjunctival erythema ENMT: Moist mucous membranes. No pharyngeal erythema Cardiovascular: Regular, rate, and rhythm. No gallops, murmurs, or rubs. Bilateral upper extremity pulses symmetric and intact. No peripheral edema. No JVD. Respiratory: Lungs clear to auscultation bilaterally. No wheezes, rales, or rho nchi. Gastrointestinal: Soft, minimal tenderness in the epigastric and left upper quadrant. No rebound or guarding. Normoactive bowel sounds Genitourinary: No suprapubic tenderness Musculoskeletal: Normal range of motion. Skin: No lesions or abrasions. Neurological: Alert, GCS 15 MEDICAL DECISION MAKING AND COURSE IN THE ED WITH INTERPRETATION/REVIEW OF DIAGNOSTIC STUDIES: This is a 70-year-old man and with a past medical history of diverticulitis with recent diagnosis yesterday who comes to the emergency department with epigastric abdominal pain that worsens with eating who has stable vital signs who is on antibiotics. There is no rebound or guarding therefore I do not believe any repeat imaging is indicated. Given that the pain is exacerbated by eating I do suspect the possibility of gastritis or peptic ulcer disease. We will provide the patient with GI cocktail and famotidine. We will provide the patient with 1 L of D5 LR. We will provide the patient with Zofran for nausea. Given the patient's heavy breathing I did have a discussion with the patient. He states that it is his anxiety. We will reevaluate. I do not believe any other labs or imaging are indicated. Laboratory: CMP reveals elevated BUN at 19 and a creatinine of 1.5, hyperglycemia at 165 lipase is normal at 72. These are essentially unchanged from yesterday however his kidney function did improve. On reevaluation the patient did report improvement in his pain. I did discuss with him at this time that he would be stable for discharge. I did encourage the patient to keep his ultrasound appointment for today. He was given a prescription for famotidine to be taken at night for the next 14 days. He is to follow-up with his primary care physician and general surgeon. He is to return for any new or worsening symptoms. He was amenable discharge and had no further questions DISPOSITION: The patient was discharged home in stable condition. The patient will follow up with primary care physician general surgery at their scheduled appointments CONDITION: Fair PROCEDURES: None FINAL IMPRESSION(S)/DIAGNOSES: 1. Acute epigastric abdominal pain likely secondary to gastritis versus peptic ulcer disease 2. Acute diverticulitis Dakotah Arenas M.D. Abdomen Pain Score (Numeric/FACES): 8 - Related Data Allergies Allergy/AdvReac Type Severity Reaction Status Date / Time atorvastatin calcium Allergy Hives Verified 11/06/20 06:46 [From Lipitor] cefazolin sodium [From Ancef] Allergy Hives Verified 11/06/20 06:46 latex Allergy Rash Verified 11/06/20 06:46 Home Meds: Home Meds Ascorbic Acid/Bioflavonoids [Vit C-Bioflavonoids SA] 1,000 mg PO QAM 06/25/14 [History] Aspirin [[place] Chewable Aspirin] 81 mg PO QAM 06/25/14 [History] Fenofibrate Nanocrystallized [Fenofibrate] 145 mg PO BEDTIME 06/25/14 [History] Fish Oil/[place]-3 Fatty Acids [Fish Oil] 1,200 mg PO QAM 06/25/14 [History] Hydrochlorothiazide/Lisinopril [Lisinopril/HCTZ 20-12.5 MG] 1 tab PO QAM 06/25/14 [History] amLODIPine Besylate [Amlodipine Besylate] 10 mg PO QAM 06/25/14 [History] metFORMIN [Glucophage] 1,000 mg PO BID 06/25/14 [History] Multivitamin [Multivitamins] 1 tab PO DAILY 06/18/16 [History] Rosuvastatin Calcium 20 mg PO DAILY 06/18/16 [History] Finasteride [Proscar] 5 mg PO DAILY 09/28/20 [History] Insulin Glarg,Human.Rec.Analog [Lantus] 70 units INJECT BEDTIME 09/28/20 [History] Insulin Lispro [Humalog] 1 dose INJECT ASDIRECTED 09/28/20 [History] Metoclopramide HCl [Reglan] 10 mg PO QID PRN #12 tablet 09/28/20 [Rx] Tamsulosin HCl [Flomax] 0.8 mg PO DAILY 09/28/20 [History] polyethylene glycoL 3350 [MiraLAX] 17 gm PO DAILY #1 cont 09/28/20 [Rx] Ondansetron [Zofran ODT] 4 mg PO Q6H PRN #12 tab.dis 10/06/20 [Rx] Sertraline [Zoloft] 50 mg PO DAILY 11/02/20 [History] Amoxicillin/Clavulanate K [Augmentin 875-125 MG] 1 tab PO Q12HR 10 Days #20 tab 11/03/20 [Rx] Ondansetron [Zofran ODT] 4 mg PO Q6H PRN #12 tab.dis 11/03/20 [Rx] traMADol [Ultram] 50 mg PO Q6H PRN #12 tab 11/03/20 [Rx] Famotidine 40 mg PO BEDTIME #14 tablet 11/06/20 [Rx] Past Medical History HEENT History: Reports: Impaired Vision Other HEENT History: wears glasses Cardiovascular History: Reports: High Cholesterol, Hypertension Respiratory History: Reports: Sleep Apnea Other Respiratory History: uses BPAP Gastrointestinal History: Reports: None Genitourinary History: Reports: None Musculoskeletal History: Reports: Back Pain, Chronic Neurological History: Reports: None Psychiatric History: Reports: Anxiety Endocrine/Metabolic History: Reports: Diabetes, Type II, Obesity/BMI 30+ Insulin Pump Model and Tank Terminal Gauger: N/A Hematologic History: Reports: Blood Transfusion(s) Other Hematologic History: blood transfusion following nose bleed at 10 yrs old Immunologic History: Reports: None Oncologic (Cancer) History: Reports: None Dermatologic History: Reports: None - Infectious Disease History Infectious Disease History: Reports: Chicken Pox, Measles - Past Surgical History Head Surgeries/Procedures: Reports: None HEENT Surgical History: Reports: Cataract Surgery, Tonsillectomy Cardiovascular Surgical History: Reports: None Respiratory Surgical History: Reports: None GI Surgical History: Reports: None Male Surgical History: Reports: None Musculoskeletal Surgical History: Reports: Arthroscopic Knee Social & Family History - Family History Family Medical History: No Pertinent Family History - Caffeine Use Caffeine Use: Reports: None - Recreational Drug Use Recreational Drug Use: No ED ROS GENERAL - Review of Systems Review Of Systems: See Below ED EXAM, GENERAL - Physical Exam Exam: See Below Course - Vital Signs Last Recorded V/S: Last Vital Signs Temp 36.8 C 11/06/20 09:29 Pulse 72 11/06/20 09:29 Resp 18 11/06/20 09:29 BP 125/77 05/17/21 09:29 Pulse Ox 98 11/06/20 09:29 - Orders/Labs/Meds Labs: Laboratory Tests 11/06/20 Range/Units 06:48 Sodium 139 (136-148) mmol/L Potassium 4.4 (3.5-5.1) mmol/L Chloride 100 (98-107) mmol/L Carbon Dioxide 23.1 (21.0-32.0) mmol/L BUN 19 H (7.0-18.0) mg/dL Creatinine 1.5 H (0.8-1.3) mg/dL Est Cr Clr Drug Dosing 47.99 mL/min Estimated GFR (MDRD) 46.4 ml/min Glucose 165 H (74-106) mg/dL Calcium 9.6 (8.5-10.1) mg/dL Total Bilirubin 0.4 (0.2-1.0) mg/dL AST 18 (15-37) IU/L ALT 33 (14-63) IU/L Alkaline Phosphatase 38 L (46-116) U/L Total Protein 8.1 (6.4-8.2) g/dL Albumin 3.8 (3.4-5.0) g/dL Globulin 4.3 H (2.6-4.0) g/dL Albumin/Globulin Ratio 0.9 (0.9-1.6) Lipase 72 L (73-393) U/L Meds: Medications Discontinued Medications Generic Name Dose Route Start Last Admin Trade Name Freq PRN Reason Stop Dose Admin Al Hydroxide/Mg Hydroxide 15 0 ml 11/06/20 07:21 11/06/20 07:29 ml/ Lidocaine HCl 5 ml PO 11/06/20 07:22 1 each ONETIME ONE Administration Famotidine 20 mg 11/06/20 07:22 11/06/20 07:29 Famotidine 20 Mg/2 Ml Sdv IVPUSH 11/06/20 07:23 20 mg ONETIME ONE Administration Dextrose/Lactated Ringer's 1,000 mls @ 999 mls/hr 11/06/20 07:26 11/06/20 07:29 Dextrose 5%-Lactated Ringers IV 11/06/20 08:26 999 mls/hr STAT STA Administration Ondansetron HCl 4 mg 11/06/20 07:21 11/06/20 07:29 Ondansetron 4 Mg/2 Ml Sdv IVPUSH 11/06/20 07:22 4 mg ONETIME ONE Administration Departure - Departure Time of Disposition: 09:23 Disposition: Home, Self-Care 01 Condition: Fair Clinical Impression: Abdominal pain - Discharge Information *PRESCRIPTION DRUG MONITORING PROGRAM REVIEWED*: No *COPY OF PRESCRIPTION DRUG MONITORING REPORT IN PATIENT ERNESTO: No Prescriptions: Famotidine 40 mg PO BEDTIME #14 tablet Instructions: Gastritis, Adult, [id number], Abdominal Pain, Adult, [id number] Referrals: Wei Page MD [Primary Care Provider] - Forms: ED Department Discharge Additional Instructions: You were evaluated today on an emergent basis. At this time your labs are improved from prior. At this time we did treat your symptoms with Maalox and an antacid. I do recommend that you continue with your antibiotics for the diverticulitis and utilize the medications that were provided with you for your abdominal pain including the tramadol and use the Zofran for nausea. If you have any worsening abdominal pain, fevers, inability to tolerate any fluids or liquid after trying Zofran I would recommend you return to the emergency department. Otherwise you need to follow-up with your primary care physician and general surgeon for further evaluation and treatment. In addition I will be provide you with a prescription for the antacid that we provided you here today. I would like you to take this daily for the next 14 days. [facility] [address] [place] [address] [address] [facility] - General Surgery Professional Building [address] [place] [address], [address] [place] [address] The patient is informed of any results of their evaluation and diagnostic workup and all questions are answered. They are given discharge instructions and return precautions. The patient is stable for discharge. The patient states they understand and agree with the plan and that they will return if their symptoms get worse or if they have any new concerns. The following information is given to patients seen in the emergency department who are being discharged to home. This information is to outline your options for follow-up care. We provide all patients seen in our emergency department with a follow-up referral. The need for follow-up, as well as the timing and circumstances, are variable depending upon the specifics of your emergency department visit. If you don't have a primary care physician on staff, we will provide you with a referral. We always advise you to contact your personal physician following an emergency department visit to inform them of the circumstance of the visit and for follow-up with them and/or the need for any referrals to a consulting specialist. The emergency department will also refer you to a specialist when appropriate. This referral assures that you have the opportunity for follow-up care with a specialist. All of these measure are taken in an effort to provide you with optimal care, which includes your follow-up. Under all circumstances we always encourage you to contact your private physician who remains a resource for coordinating your care. When calling for follow-up care, please make the office aware that this follow-up is from your recent emergency room visit. If for any reason you are refused follow-up, please contact the Emergency Department at and asked to speak to the emergency department charge nurse. Sepsis Event Note (ED) - Evaluation Sepsis Screening Result: No Definite Risk
[2020-11-06 09:31] VITALS: BP 125/77; PULSE 72
== END 2020-11-06 09:29 | disposition home or self-care (01) ==
LOC: MW.ED 06:38
DX: K57.32 Diverticulitis of large intestine without perforation or abscess without bleeding (principal); E78.00 Pure hypercholesterolemia, unspecified; I10 Essential (primary) hypertension; E11.9 Type 2 diabetes mellitus without complications; E66.9 Obesity, unspecified; Z88.1 Allergy status to other antibiotic agents; Z91.040 Latex allergy status; Z88.8 Allergy status to other drugs, medicaments and biological substances; Z79.82 Long term (current) use of aspirin; Z79.4 Long term (current) use of insulin; Z79.899 Other long term (current) drug therapy; Z68.31 Body mass index [BMI] 31.0-31.9, adult
CPT/HCPCS: 36415; 80053; 83690; 96374; 96375; 99284; A9270; J2405; J3490; J7121; 99283

== ENCOUNTER 2020-11-13 10:57 | Inpatient (IN) | payer MEDICARE, OTHER ==
[2020-11-13] MEDS ORDERED: Sodium Chloride 0.9% 10 ML Syringe FLUSH PRN (11:02)
[2020-11-13] MEDS ORDERED: Sodium Chloride 0.9% 2.5 ML Syringe FLUSH PRN ×2 (11:02→16:23)
--- NOTE | 2020-11-13 11:13 | EDM.PDOC ---
ED HPI GENERAL MEDICAL PROBLEM - General Chief Complaint: General Stated Complaint: LOW PRESSURE, DIZZINESS Time Seen by Provider: 11/13/20 10:59 - History of Present Illness INITIAL COMMENTS - FREE TEXT/NARRATIVE: History of present illness: [] The patient has weakness with near syncopal feeling off and on for several days. He has had trouble with inability to eat without GI upset for more than a month. He most recently on the of this month was diagnosis with recurrent diverticulitis and started on antibiotics which he finished yesterday. He had on the the diagnosis of cholelithiasis. He had a HIDA scan since then that is normal. When he went to surgical clinic for follow-up on cholelithiasis today he almost passed out they sent him to me again. He says he is continuing to have these episodes almost daily. The patient has been on antibiotics off and on since September 23 and has at least forced loose stools a day. Review of systems: As per history of present illness and below otherwise all systems reviewed and negative. Past medical history: As per history of present illness and as reviewed below otherwise noncontributory. Surgical history: As per history of present illness and as reviewed below otherwise noncontributory. Social history: No reported history of drug or alcohol abuse. Family history: As per history of present illness and as reviewed below otherwise noncontributory. Physical exam: Constitutional - well developed, well-nourished and in no acute distress HEENT - normocephalic, no evidence of trauma - external nose and mouth normal - no mass in neck and no JVD - mucosae moist EYES - full EOM, PERRL, no icterus - no evidence of inflammation, injection, or drainage Respiratory - no respiratory distress, equal bilateral expansion, lungs clear to auscultation and no abnormal lung sounds Cardiovascular - Regular Rhythm with S1 and S2 appreciated and no murmur, gallop or rub. GI - abdomen soft without distension or organomegaly - normal bowel sounds - no guard or rebound Musculoskeletal no gross deformity of long bones or joints - no tenderness, swelling or edema Neurologic - Alert and oriented times four - CN II-XII grossly intact - motor sensory and coordination symmetrically normal Psychiatric - appropriate mood and affect with normal thought content Hematologic - No petechiae or purpura - mucosa appropriate color and sclera not pale - normal nail bed color and refill Integument - no rash or evidence of trauma - normal turgor Diagnostics: [] Therapeutics: [] Impression: [] Plan: [] Definitive disposition and diagnosis as appropriate pending reevaluation and review of above. - Related Data Allergies Allergy/AdvReac Type Severity Reaction Status Date / Time atorvastatin calcium Allergy Hives Verified 11/13/20 11:13 [From Lipitor] cefazolin sodium [From Ancef] Allergy Hives Verified 11/13/20 11:13 latex Allergy Rash Verified 11/13/20 11:13 Home Meds: Home Meds Ascorbic Acid/Bioflavonoids [Vit C-Bioflavonoids SA] 1,000 mg PO QAM 06/25/14 [History] Aspirin [[place] Chewable Aspirin] 81 mg PO QAM 06/25/14 [History] Fenofibrate Nanocrystallized [Fenofibrate] 145 mg PO BEDTIME 06/25/14 [History] Fish Oil/[place]-3 Fatty Acids [Fish Oil] 1,200 mg PO QAM 06/25/14 [History] amLODIPine Besylate [Amlodipine Besylate] 10 mg PO QAM 06/25/14 [History] metFORMIN [Glucophage] 1,000 mg PO BID 06/25/14 [History] Multivitamin [Multivitamins] 1 tab PO DAILY 06/18/16 [History] Rosuvastatin Calcium 20 mg PO DAILY 06/18/16 [History] Finasteride [Proscar] 5 mg PO DAILY 09/28/20 [History] Insulin Glarg,Human.Rec.Analog [Lantus] 70 units INJECT BEDTIME 09/28/20 [History] Insulin Lispro [Humalog] 0 unit SUBCUT TIDMEALS MDD 30 UNITS PER MEAL 09/28/20 [History] Tamsulosin HCl [Flomax] 0.8 mg PO BEDTIME 09/28/20 [History] Sertraline [Zoloft] 50 mg PO DAILY 11/02/20 [History] traMADol [Ultram] 50 mg PO Q6H PRN #12 tab 11/03/20 [Rx] Famotidine 40 mg PO BEDTIME #14 tablet 11/06/20 [Rx] LORazepam [Ativan] 0.5 - 1 mg PO BID PRN 11/13/20 [History] Lisinopril/Hydrochlorothiazide [Lisinopril-Hctz 20-12.5 mg Tab] 1 tab PO DAILY 11/13/20 [History] Meclizine [Antivert] 25 mg PO Q8H PRN 11/13/20 [History] Ondansetron [Zofran ODT] 4 mg SL Q6H PRN 11/13/20 [History] Ondansetron [Zofran ODT] 8 mg SL DAILY PRN 11/13/20 [History] Past Medical History HEENT History: Reports: Impaired Vision Other HEENT History: wears glasses Cardiovascular History: Reports: High Cholesterol, Hypertension Respiratory History: Reports: Sleep Apnea Other Respiratory History: uses BPAP Gastrointestinal History: Reports: None Genitourinary History: Reports: None Musculoskeletal History: Reports: Back Pain, Chronic Neurological History: Reports: None Psychiatric History: Reports: Anxiety Endocrine/Metabolic History: Reports: Diabetes, Type II, Obesity/BMI 30+ 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 Pump Model 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 Lime 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: N/A Hematologic History: Reports: Blood Transfusion(s) Other Hematologic History: blood transfusion following nose bleed at 10 yrs old Immunologic History: Reports: None Oncologic (Cancer) History: Reports: None Dermatologic History: Reports: None - Infectious Disease History Infectious Disease History: Reports: Chicken Pox, Measles - Past Surgical History Head Surgeries/Procedures: Reports: None HEENT Surgical History: Reports: Cataract Surgery, Tonsillectomy Cardiovascular Surgical History: Reports: None Respiratory Surgical History: Reports: None GI Surgical History: Reports: None Male Surgical History: Reports: None Musculoskeletal Surgical History: Reports: Arthroscopic Knee Social & Family History - Family History Family Medical History: No Pertinent Family History - Caffeine Use Caffeine Use: Reports: None ED ROS GENERAL - Review of Systems Review Of Systems: Comprehensive ROS is negative, except as noted in HPI. ED EXAM, GENERAL - Physical Exam Exam: See Below Free Text/Narrative:: My physical exam is in the HPI #1 Interpretation EKG Interpretation Comments: EKG done at 11:05 AM shows a sinus rhythm with a heart rate of 81 and a WA interval of 142 and a QT duration of 430. The axis is 50. There is a right bundle branch pattern. There is some discordant ST movement in 2 and aVF. Com pared to 10/07/[address] changes narrow. This is concerning for the possibility of some acute ischemia or injury in the inferior leads. Impression persistent right bundle branch block with possible inferior lead ischemia or injury. Course - Vital Signs Text/Narrative:: 12:54 PM the patient's blood pressure is 88. He has been up to the bathroom without orthostatic symptoms today. Renal failure is new when compared to prior labs. Patient had a mother who had renal failure. He is not diabetic. Case discussed with Dr. Pulido and she wanted a BMP repeat after further hydration. Will call back with results and make a determination whether we can manage this acute renal failure and hypotension here or he needs to be tr ansferred somewhere where nephrology can see him while he is in the hospital. 1513 patient is stable able to ambulate. Labs did not change much with [address] showed a large prostate but no obvious obstruction. Discussed with Dr. Pulido and admitted. Last Recorded V/S: Last Vital Signs Temp 36.3 C 11/13/20 11:13 Pulse 82 11/13/20 14:22 Resp 20 11/13/20 14:22 BP 106/65 11/13/20 14:22 Pulse Ox 98 11/13/20 14:22 Orthostatic Blood Pressure [ 76/41 Standing] Orthostatic Blood Pressure [ 71/45 Sitting] Orthostatic Blood Pressure [ 76/45 Supine] - Orders/Labs/Meds Orders: Active Orders 24 hr Category Date Time Status Admission Status [Patient Status] [ADT] Stat ADT 11/13/20 15:10 Ordered Cardiac Monitoring [RC] . DIRECTED Care 11/13/20 15:10 Ordered EKG Documentation Completion [RC] AM Care 11/13/20 11:02 Active Orthostatic Vital Signs [RC] ASDIRECTED Care 11/13/20 11:20 Active C DIFFICILE AG/TOXIN W/REFLEX [RM] Stat Lab 11/13/20 13:13 Ordered CULTURE BLOOD [BC] Stat Lab 11/13/20 11:21 Received CULTURE BLOOD [BC] Stat Lab 11/13/20 11:32 Received Sodium Chloride 0.9% [Saline Flush] Med 11/13/20 11:02 Active 10 ml FLUSH ASDIRECTED PRN Sodium Chloride 0.9% [Saline Flush] Med 11/13/20 11:02 Active 2.5 ml FLUSH ASDIRECTED PRN Blood Culture x2 Reflex Set [OM.PC] Stat Oth 11/13/20 11:03 Ordered Saline Lock Insert [OM.PC] Stat Oth 11/13/20 11:02 Ordered Medication Orders Sodium Chloride (Sodium Chloride 0.9% 10 Ml Syringe) 10 ml FLUSH ASDIRECTED PRN PRN Reason: Keep Vein Open Last Admin: 11/13/20 11:17 Dose: 10 ml Documented by: [email or web address] Sodium Chloride (Sodium Chloride 0.9% 2.5 Ml Syringe) 2.5 ml FLUSH ASDIRECTED PRN PRN Reason: Keep Vein Open Last Admin: 11/13/20 11:18 Dose: 2.5 ml Documented by: [email or web address] Labs: Laboratory Tests 11/13/20 11/13/20 11/13/20 Range/Units 11:07 11:07 11:21 WBC 7.51 (4.0-11.0) K/uL RBC 4.41 L (4.50-5.90) M/uL Hgb 14.2 (13.0-17.0) g/dL Hct 41.4 (38.0-50.0) % MCV 93.9 (80.0-98.0) fL MCH 32.2 H (27.0-32.0) pg MCHC 34.3 (31.0-37.0) g/dL RDW Std Deviation 46.1 (28.0-62.0) fl RDW Coeff of Chitra 13 (11.0-15.0) % Plt Count 262 (150-400) K/uL MPV 10.20 (7.40-12.00) fL Neut % (Auto) 68.0 (48.0-80.0) % Lymph % (Auto) 18.4 (16.0-40.0) % Gray % (Auto) 10.3 (0.0-15.0) % Eos % (Auto) 3.2 (0.0-7.0) % Baso % (Auto) 0.1 (0.0-1.5) % Neut # (Auto) 5.1 (1.4-5.7) K/uL Lymph # (Auto) 1.4 (0.6-2.4) K/uL Gray # (Auto) 0.8 (0.0-0.8) K/uL Eos # (Auto) 0.2 (0.0-0.7) K/uL Baso # (Auto) 0.0 (0.0-0.1) K/uL Nucleated RBC % 0.0 /100WBC Nucleated RBCs # 0 K/uL Sodium 136 (136-148) mmol/L Potassium 4.6 (3.5-5.1) mmol/L Chloride 100 (98-107) mmol/L Carbon Dioxide 23.5 (21.0-32.0) mmol/L BUN 65 H (7.0-18.0) mg/dL Creatinine 6.7 H (0.8-1.3) mg/dL Est Cr Clr Drug Dosing 10.74 mL/min Estimated GFR (MDRD) 8.2 ml/min Glucose 160 H (74-106) mg/dL Lactic Acid 1.7 (0.4-2.0) mmol/L Calcium 9.9 (8.5-10.1) mg/dL Magnesium 1.8 (1.8-2.4) mg/dL Total Bilirubin 0.4 (0.2-1.0) mg/dL AST 9 L (15-37) IU/L ALT 21 (14-63) IU/L Alkaline Phosphatase 41 L (46-116) U/L Troponin I < 0.050 (0.000-0.056) ng/mL Total Protein 7.8 (6.4-8.2) g/dL Albumin 3.7 (3.4-5.0) g/dL Globulin 4.1 H (2.6-4.0) g/dL Albumin/Globulin Ratio 0.9 (0.9-1.6) Lipase 123 (73-393) U/L TSH 3rd Generation 0.67 (0.36-3.74) uIU/mL Urine Color Urine Appearance Urine pH (5.0-8.0) Ur Specific [place] (1.001-1.035) Urine Protein (NEGATIVE) mg/dL Urine Glucose (UA) (NEGATIVE) mg/dL Urine Ketones (NEGATIVE) mg/dL Urine Occult Blood (NEGATIVE) Urine Nitrite (NEGATIVE) Urine Bilirubin (NEGATIVE) Urine Ictotest Urine Urobilinogen (<2.0) EU/dL Ur Leukocyte Esterase (NEGATIVE) Urine RBC (0-2/HPF) Urine WBC (0-5/HPF) Ur Epithelial Cells (NONE-FEW) Urine Bacteria (NEGATIVE) SARS-CoV-2 RNA (CRISTINE) (NEGATIVE) 11/13/20 11/13/20 11/13/20 Range/Units 12:38 13:23 13:36 WBC (4.0-11.0) K/uL RBC (4.50-5.90) M/uL Hgb (13.0-17.0) g/dL Hct (38.0-50.0) % MCV (80.0-98.0) fL MCH (27.0-32.0) pg MCHC (31.0-37.0) g/dL RDW Std Deviation (28.0-62.0) fl RDW Coeff of Chitra (11.0-15.0) % Plt Count (150-400) K/uL MPV (7.40-12.00) fL Neut % (Auto) (48.0-80.0) % Lymph % (Auto) (16.0-40.0) % Gray % (Auto) (0.0-15.0) % Eos % (Auto) (0.0-7.0) % Baso % (Auto) (0.0-1.5) % Neut # (Auto) (1.4-5.7) K/uL Lymph # (Auto) (0.6-2.4) K/uL Gray # (Auto) (0.0-0.8) K/uL Eos # (Auto) (0.0-0.7) K/uL Baso # (Auto) (0.0-0.1) K/uL Nucleated RBC % /100WBC Nucleated RBCs # K/uL Sodium 137 (136-148) mmol/L Potassium 4.4 (3.5-5.1) mmol/L Chloride 102 (98-107) mmol/L Carbon Dioxide 21.5 (21.0-32.0) mmol/L BUN 65 H (7.0-18.0) mg/dL Creatinine 6.1 H (0.8-1.3) mg/dL Est Cr Clr Drug Dosing 11.80 mL/min Estimated GFR (MDRD) 9.2 ml/min Glucose 137 H (74-106) mg/dL Lactic Acid (0.4-2.0) mmol/L Calcium 8.9 (8.5-10.1) mg/dL Magnesium (1.8-2.4) mg/dL Total Bilirubin (0.2-1.0) mg/dL AST (15-37) IU/L ALT (14-63) IU/L Alkaline Phosphatase (46-116) U/L Troponin I (0.000-0.056) ng/mL Total Protein (6.4-8.2) g/dL Albumin (3.4-5.0) g/dL Globulin (2.6-4.0) g/dL Albumin/Globulin Ratio (0.9-1.6) Lipase (73-393) U/L TSH 3rd Generation (0.36-3.74) uIU/mL Urine Color YELLOW Urine Appearance CLEAR Urine pH 5.5 (5.0-8.0) Ur Specific [place] >= 1.030 (1.001-1.035) Urine Protein 30 H (NEGATIVE) mg/dL Urine Glucose (UA) NEGATIVE (NEGATIVE) mg/dL Urine Ketones TRACE H (NEGATIVE) mg/dL Urine Occult Blood NEGATIVE (NEGATIVE) Urine Nitrite NEGATIVE (NEGATIVE) Urine Bilirubin SMALL H (NEGATIVE) Urine Ictotest NEGATIVE Urine Urobilinogen 0.2 (<2.0) EU/dL Ur Leukocyte Esterase NEGATIVE (NEGATIVE) Urine RBC 0-2 (0-2/HPF) Urine WBC 0-2 (0-5/HPF) Ur Epithelial Cells FEW (NONE-FEW) Urine Bacteria FEW (NEGATIVE) SARS-CoV-2 RNA (CRISTINE) NEGATIVE (NEGATIVE) Meds: Medications Generic Name Dose Route Start Last Admin Trade Name Freq PRN Reason Stop Dose Admin Sodium Chloride 10 ml 11/13/20 11:02 11/13/20 11:17 Sodium Chloride 0.9% 10 Ml Syringe FLUSH 10 ml ASDIRECTED PRN Administration Keep Vein Open Sodium Chloride 2.5 ml 11/13/20 11:02 11/13/20 11:18 Sodium Chloride 0.9% 2.5 Ml Syringe FLUSH 2.5 ml ASDIRECTED PRN Administration Keep Vein Open Discontinued Medications Generic Name Dose Route Start Last Admin Trade Name Freq PRN Reason Stop Dose Admin Sodium Chloride 1,000 mls @ 999 mls/hr 11/13/20 11:17 11/13/20 11:17 Normal Saline IV 11/13/20 12:17 999 mls/hr .Bolus ONE Administration Sodium Chloride 1,000 mls @ 1,000 mls/hr 11/13/20 12:52 11/13/20 12:56 Normal Saline IV 11/13/20 13:51 1,000 mls/hr .Bolus ONE Administration Sodium Chloride 1,000 mls @ 1,000 mls/hr 11/13/20 13:56 11/13/20 14:21 Normal Saline IV 11/13/20 14:55 1,000 mls/hr .Bolus ONE Administration Departure - Departure Time of Disposition: 15:13 Disposition: Admitted As Inpatient 67 Condition: Good Clinical Impression: Acute renal failure, Volume depletion - Discharge Information Referrals: PCP,None [Ordering Only Provider] - Forms: ED Department Discharge Sepsis Event Note (ED) - Focused Exam Vital Signs: Vital Signs Temp Pulse Resp BP Pulse Ox 11/13/20 14:22 82 20 106/65 98 11/13/20 12:57 82 20 90/54 L 99 11/13/20 12:28 84 16 84/44 L 96 11/13/20 12:13 79 17 79/44 L 95 11/13/20 11:58 81 17 97/46 L 98 11/13/20 11:13 36.3 C 87 18 71/40 L 98 - My Orders Last 24 Hours: My Active Orders 11/13/20 11:02 EKG Documentation Completion [RC] AM Sodium Chloride 0.9% [Saline Flush] 10 ml FLUSH ASDIRECTED PRN Sodium Chloride 0.9% [Saline Flush] 2.5 ml FLUSH ASDIRECTED PRN Saline Lock Insert [OM.PC] Stat 11/13/20 11:03 Blood Culture x2 Reflex Set [OM.PC] Stat 11/13/20 11:20 Orthostatic Vital Signs [RC] ASDIRECTED 11/13/20 11:21 CULTURE BLOOD [BC] Stat 11/13/20 11:32 CULTURE BLOOD [BC] Stat 11/13/20 13:13 C DIFFICILE AG/TOXIN W/REFLEX [RM] Stat 11/13/20 15:10 Admission Status [Patient Status] [ADT] Stat Cardiac Monitoring [RC] . DIRECTED - Assessment/Plan Last 24 Hours: My Active Orders 11/13/20 11:02 EKG Documentation Completion [RC] AM Sodium Chloride 0.9% [Saline Flush] 10 ml FLUSH ASDIRECTED PRN Sodium Chloride 0.9% [Saline Flush] 2.5 ml FLUSH ASDIRECTED PRN Saline Lock Insert [OM.PC] Stat 11/13/20 11:03 Blood Culture x2 Reflex Set [OM.PC] Stat 11/13/20 11:20 Orthostatic Vital Signs [RC] ASDIRECTED 11/13/20 11:21 CULTURE BLOOD [BC] Stat 11/13/20 11:32 CULTURE BLOOD [BC] Stat 11/13/20 13:13 C DIFFICILE AG/TOXIN W/REFLEX [RM] Stat 11/13/20 15:10 Admission Status [Patient Status] [ADT] Stat Cardiac Monitoring [RC] . DIRECTED
[2020-11-13] MEDS ORDERED: Sodium Chloride 0.9% 1,000 ML IV ONE ×3 (11:17→13:56)
[2020-11-13 12:00] LABS: BLOOD UREA NITROGEN,BUN 65 mg/dL (7.0-18.0); CARBON DIOXIDE,CO2 23.5 mmol/L (21.0-32.0); CHLORIDE,CL 100 mmol/L (98-107); GLUCOSE RANDOM 160 mg/dL (74-106); LIPASE 123 U/L (73-393); POTASSIUM,K 4.6 mmol/L (3.5-5.1); SODIUM,NA 136 mmol/L (136-148)
--- NOTE | 2020-11-13 12:40 | CR ---
INDICATION: Shortness of breath. TECHNIQUE: Chest 1 view. COMPARISON: Chest radiograph 03/31/2018. FINDINGS: No focal consolidation, pleural effusion, or pneumothorax. Minimal atelectasis or scarring in the left costophrenic angle. Normal heart size and pulmonary vascularity. Stable mild elevation of the right hemidiaphragm. The bones are unremarkable. IMPRESSION: No acute cardiopulmonary findings. Dictated by Linda Carrasquillo MD @ 11/13/2020 12:39:[address] Linda Carrasquillo @ Nov 13 2020 12:39PM
[2020-11-13 14:06] LABS: CARBON DIOXIDE,CO2 21.5 mmol/L (21.0-32.0); POTASSIUM,K 4.4 mmol/L (3.5-5.1)
--- NOTE | 2020-11-13 15:01 | CT ---
INDICATION: Renal failure with history of diverticulitis. COMPARISON: CT abdomen and pelvis November 02, 2020. TECHNIQUE: CT abdomen and pelvis without intravenous or oral contrast; coronal and sagittal reformats. FINDINGS: Coronary artery calcifications. No abnormal intra pulmonary nodular densities through the lung bases .normal size cardiac silhouette without any evidence of pericardial effusion. No focal hepatic or splenic pathology. No pancreatic pathology. Cholelithiasis. No adrenal pathology. No kidney stones or obstructive uropathy . A 2 cm low dense lesion left kidney; rule out cyst. No retroperitoneal lymphadenopathy. Resolution of the diverticulitis of the sigmoid colon when compared to November 02, 2020. Massive stable enlargement of the prostate gland. IMPRESSION: 1. Resolution of the diverticulitis of the sigmoid colon when compared to the previous study. 2. No kidney stones or obstructive uropathy. 3. Massive stable enlargement of the prostate gland. Please note that all CT scans at this facility use dose modulation, iterative reconstruction, and/or weight-based dosing when appropriate to reduce radiation dose to as low as reasonably achievable. Dictated by Ani Yates MD @ 11/13/2020 2:58:[address] Ani Yates @ Nov 13 2020 2:58PM
[2020-11-13] MEDS ORDERED: Acetaminophen 325 MG Tab PO PRN (16:23)
[2020-11-13] MEDS ORDERED: Ondansetron 4 MG/2 ML SDV IVPUSH PRN (16:23)
[2020-11-13] MEDS ORDERED: LORazepam 0.5 MG Tab PO PRN (16:27)
--- NOTE | 2020-11-13 16:38 | PCM.HP.2 ---
H&P History of Present Illness - General Date of Service: 11/13/20 Admit Problem/Dx: Admission Diagnosis/Problem Admission Diagnosis/Problem Acute renal failure Source of Information: Patient History Limitations: Reports: No Limitations - History of Present Illness Initial Comments - Free Text/Narative: This 70-year-old male with past medical history of BPH, hypertension, diabetes type 2 presented to the ER today after he was found to be near syncope and orthostatic in Dr. Venegas general surgery's office. He reports that he has not been feeling well for the past couple weeks. He reports last week he did go to the walk-in clinic and was told he had vertigo and given meclizine along with nasal spray and allergy medication. He reports at that visit they struggled obt aining a blood pressure. He reports looking back at his blood pressure logs blood pressures have been intermittently low with 70 systolic for the past week and a half. He reports his symptoms of nausea vomiting and generally not feeling well started September 28 when he was diagnosed with diverticulitis. He was sent home on medication likely fluoroquinolone and Flagyl he reports this medication really upset his stomach and felt very nauseated he was then transition to Augmentin which he just finished his last dose last evening. He reports he is no longer having abdominal pain but continues to not be able to eat well and having significant nausea. He reports he has been urinating about the same and has been drinking as much water as he can but he knows it is likely not with he needs. He reports that he is having diarrhea noting he had 2 incontinent stools yesterday and reports that he has sudden urge to have bowel movement and sometimes it is just passing gas and other times it is loose watery stool. He denies any chest pain no shortness of breath. No abdominal pain. No flank pain no history of any renal stones. He reports that he was told he has a large prostate he denies any fevers or chills. Again he denies any trouble urinating. He denies any history of tobacco use no recreational drug use and rare social alcohol use. In the ER no leukocytosis noted hemoglobin 14.2 hematocrit 41.2 platelets 262,000. Sodium 136 potassium 4.6 bicarb 23.5 BUN 65 creatinine 6.7 glucose 160 AST ALT and alk phos all within normal limits. Troponin negative TSH 0.67 lipase 123. Urine obtained which is negative for UTI. Scarlet calculated appears to be ATN likely started as prerenal and secondary to dehydration and hypotension. CT of abdomen and pelvis were obtained to rule out infectious or obstructive uropathy. Resolution of diverticulitis of the colon noted compared to prior imaging. No kidney stones or obstructive uropathy noted. Massive stable enlargement of prostate gland noted. Patient voiding in the ER and is able to easily provide sample. C. difficile ordered as patient had multiple stools at home prior to arriving. Chest x-ray obtained which has no acute card iopulmonary findings. Patient was treated with 3 L IV fluids blood pressure improved from systolic 70s to 106/65. Maps remain above 65 currently. Respiratory rate 20s oxygen saturation 98 heart rate 82. EKG shows right bundle branch block which appears to be stable from previous EKGs on file. Patient will be admitted inpatient for acute renal failure likely prerenal now ATN secondary to dehydration and hypotension. - Related Data Allergies/Adverse Reactions: Allergies Allergy/AdvReac Type Severity Reaction Status Date / Time atorvastatin calcium Allergy Hives Verified 11/13/20 11:13 [From Lipitor] cefazolin sodium [From Ancef] Allergy Hives Verified 11/13/20 11:13 latex Allergy Rash Verified 11/13/20 11:13 Home Medications: Home Meds Ascorbic Acid/Bioflavonoids [Vit C-Bioflavonoids SA] 1,000 mg PO QAM 06/25/14 [History] Aspirin [[place] Chewable Aspirin] 81 mg PO QAM 06/25/14 [History] Fenofibrate Nanocrystallized [Fenofibrate] 145 mg PO BEDTIME 06/25/14 [History] Fish Oil/Bath-3 Fatty Acids [Fish Oil] 1,200 mg PO QAM 06/25/14 [History] amLODIPine Besylate [Amlodipine Besylate] 10 mg PO QAM 06/25/14 [History] metFORMIN [Glucophage] 1,000 mg PO BID 06/25/14 [History] Multivitamin [Multivitamins] 1 tab PO DAILY 06/18/16 [History] Rosuvastatin Calcium 20 mg PO DAILY 06/18/16 [History] Finasteride [Proscar] 5 mg PO DAILY 09/28/20 [History] Insulin Glarg,Human.Rec.Analog [Lantus] 70 units INJECT BEDTIME 09/28/20 [History] Insulin Lispro [Humalog] 0 unit SUBCUT TIDMEALS MDD 30 UNITS PER MEAL 09/28/20 [History] Tamsulosin HCl [Flomax] 0.8 mg PO BEDTIME 09/28/20 [History] Sertraline [Zoloft] 50 mg PO DAILY 11/02/20 [History] traMADol [Ultram] 50 mg PO Q6H PRN #12 tab 11/03/20 [Rx] Famotidine 40 mg PO BEDTIME #14 tablet 11/06/20 [Rx] LORazepam [Ativan] 0.5 - 1 mg PO BID PRN 11/13/20 [History] Lisinopril/Hydrochlorothiazide [Lisinopril-Hctz 20-12.5 mg Tab] 1 tab PO DAILY 11/13/20 [History] Meclizine [Antivert] 25 mg PO Q8H PRN 11/13/20 [History] Ondansetron [Zofran ODT] 4 mg SL Q6H PRN 11/13/20 [History] Ondansetron [Zofran ODT] 8 mg SL DAILY PRN 11/13/20 [History] Past Medical History HEENT History: Reports: Impaired Vision Other HEENT History: wears glasses Cardiovascular History: Reports: High Cholesterol, Hypertension Respiratory History: Reports: Sleep Apnea Other Respiratory History: uses BPAP Gastrointestinal History: Reports: None Genitourinary History: Reports: None Musculoskeletal History: Reports: Back Pain, Chronic Neurological History: Reports: None Psychiatric History: Reports: Anxiety Endocrine/Metabolic History: Reports: Diabetes, Type II, Obesity/BMI 30+ Insulin Pump Model and Cota: N/A Hematologic History: Reports: Blood Transfusion(s) Other Hematologic History: blood transfusion following nose bleed at 10 yrs old Immunologic History: Reports: None Oncologic (Cancer) History: Reports: None Dermatologic History: Reports: None - Infectious Disease History Infectious Disease History: Reports: Chicken Pox, Measles - Past Surgical History Head Surgeries/Procedures: Reports: None HEENT Surgical History: Reports: Cataract Surgery, Tonsillectomy Cardiovascular Surgical History: Reports: None Respiratory Surgical History: Reports: None GI Surgical History: Reports: None Male Surgical History: Reports: None Musculoskeletal Surgical History: Reports: Arthroscopic Knee Social & Family History - Family History Family Medical History: No Pertinent Family History - Tobacco Use Tobacco Use Status *Q: Unknown Ever Used Tobacco - Caffeine Use Caffeine Use: Reports: None - Recreational Drug Use Recreational Drug Use: No H&P Review of Systems - Review of Systems: Review Of Systems: See Below General: Reports: Malaise, Weakness (Generalized). Denies: Fever, Chills HEENT: Reports: Vertigo (Intermittent). Denies: Headaches, Hearing Changes, Sinus Congestion, Sore Throat Pulmonary: Reports: No Symptoms. Denies: Shortness of Breath, Cough, Sputum Cardiovascular: Reports: Lightheadedness, Syncope. Denies: Chest Pain, Palpitations Gastrointestinal: Reports: Decreased Appetite, Nausea. Denies: Abdominal Pain, Black Stool, Bloody Stool, Vomiting Genitourinary: Reports: No Symptoms. Denies: Dysuria, Frequency, Burning Musculoskeletal: Reports: No Symptoms. Denies: Neck Pain Skin: Reports: No Symptoms Psychiatric: Reports: No Symptoms Neurological: Reports: No Symptoms Hematologic/Lymphatic: Reports: No Symptoms Immunologic: Reports: No Symptoms Exam - Exam Exam: See Below - Vital Signs Vital Signs: Last Vital Signs Temp 97.3 F 11/13/20 11:13 Pulse 81 11/13/20 16:05 Resp 20 11/13/20 16:05 BP 98/82 11/13/20 16:05 Pulse Ox 98 11/13/20 16:05 Orthostatic Blood Pressure [ 76/41 Standing] Orthostatic Blood Pressure [ 71/45 Sitting] Orthostatic Blood Pressure [ 76/45 Supine] Weight: 92.986 kg - Exam General: Alert, Oriented, Cooperative HEENT: Conjunctiva Clear, Mucosa Moist & [place], Posterior Pharynx Clear Neck: Supple, Trachea Midline Lungs: Clear to Auscultation, Normal Respiratory Effort Cardiovascular: Regular Rate, Regular Rhythm, Normal S1, Normal S2. No: Systolic Murmur GI/Abdominal Exam: Normal Bowel Sounds, Soft, Non-Tender Extremities: Normal Inspection, Normal Range of Motion, Non-Tender, No Pedal Edema Skin: Warm, Dry, Other (Tenting noted) Neuro Extensive - Mental Status: Alert, Oriented x3, Normal Mood/Affect Psychiatric: Alert, Normal Affect, Normal Mood - Patient Data Lab Results Last 24 hrs: Laboratory Results - last 24 hr 11/13/20 11/13/20 11/13/20 Range/Units 11:07 11:07 11:21 WBC 7.51 (4.0-11.0) K/uL RBC 4.41 L (4.50-5.90) M/uL Hgb 14.2 (13.0-17.0) g/dL Hct 41.4 (38.0-50.0) % MCV 93.9 (80.0-98.0) fL MCH 32.2 H (27.0-32.0) pg MCHC 34.3 (31.0-37.0) g/dL RDW Std Deviation 46.1 (28.0-62.0) fl RDW Coeff of Chitra 13 (11.0-15.0) % Plt Count 262 (150-400) K/uL MPV 10.20 (7.40-12.00) fL Neut % (Auto) 68.0 (48.0-80.0) % Lymph % (Auto) 18.4 (16.0-40.0) % [place] % (Auto) 10.3 (0.0-15.0) % Eos % (Auto) 3.2 (0.0-7.0) % Baso % (Auto) 0.1 (0.0-1.5) % Neut # (Auto) 5.1 (1.4-5.7) K/uL Lymph # (Auto) 1.4 (0.6-2.4) K/uL [place] # (Auto) 0.8 (0.0-0.8) K/uL Eos # (Auto) 0.2 (0.0-0.7) K/uL Baso # (Auto) 0.0 (0.0-0.1) K/uL Nucleated RBC % 0.0 /100WBC Nucleated RBCs # 0 K/uL Sodium 136 (136-148) mmol/L Potassium 4.6 (3.5-5.1) mmol/L Chloride 100 (98-107) mmol/L Carbon Dioxide 23.5 (21.0-32.0) mmol/L BUN 65 H (7.0-18.0) mg/dL Creatinine 6.7 H (0.8-1.3) mg/dL Est Cr Clr Drug Dosing 10.74 mL/min Estimated GFR (MDRD) 8.2 ml/min Glucose 160 H (74-106) mg/dL Lactic Acid 1.7 (0.4-2.0) mmol/L Calcium 9.9 (8.5-10.1) mg/dL Magnesium 1.8 (1.8-2.4) mg/dL Total Bilirubin 0.4 (0.2-1.0) mg/dL AST 9 L (15-37) IU/L ALT 21 (14-63) IU/L Alkaline Phosphatase 41 L (46-116) U/L Troponin I < 0.050 (0.000-0.056) ng/mL Total Protein 7.8 (6.4-8.2) g/dL Albumin 3.7 (3.4-5.0) g/dL Globulin 4.1 H (2.6-4.0) g/dL Albumin/Globulin Ratio 0.9 (0.9-1.6) Lipase 123 (73-393) U/L TSH 3rd Generation 0.67 (0.36-3.74) uIU/mL Urine Color Urine Appearance Urine pH (5.0-8.0) Ur Specific [place] (1.001-1.035) Urine Protein (NEGATIVE) mg/dL Urine Glucose (UA) (NEGATIVE) mg/dL Urine Ketones (NEGATIVE) mg/dL Urine Occult Blood (NEGATIVE) Urine Nitrite (NEGATIVE) Urine Bilirubin (NEGATIVE) Urine Ictotest Urine Urobilinogen (<2.0) EU/dL Ur Leukocyte Esterase (NEGATIVE) Urine RBC (0-2/HPF) Urine WBC (0-5/HPF) Ur Epithelial Cells (NONE-FEW) Urine Bacteria (NEGATIVE) Ur Random Creatinine mg/dL Ur Random Sodium (40.0-220.0) mmol/L SARS-CoV-2 RNA (CRISTINE) (NEGATIVE) 11/13/20 11/13/20 11/13/20 Range/Units 12:38 13:23 13:23 WBC (4.0-11.0) K/uL RBC (4.50-5.90) M/uL Hgb (13.0-17.0) g/dL Hct (38.0-50.0) % MCV (80.0-98.0) fL MCH (27.0-32.0) pg MCHC (31.0-37.0) g/dL RDW Std Deviation (28.0-62.0) fl RDW Coeff of Chitra (11.0-15.0) % Plt Count (150-400) K/uL MPV (7.40-12.00) fL Neut % (Auto) (48.0-80.0) % Lymph % (Auto) (16.0-40.0) % [place] % (Auto) (0.0-15.0) % Eos % (Auto) (0.0-7.0) % Baso % (Auto) (0.0-1.5) % Neut # (Auto) (1.4-5.7) K/uL Lymph # (Auto) (0.6-2.4) K/uL [place] # (Auto) (0.0-0.8) K/uL Eos # (Auto) (0.0-0.7) K/uL Baso # (Auto) (0.0-0.1) K/uL Nucleated RBC % /100WBC Nucleated RBCs # K/uL Sodium (136-148) mmol/L Potassium (3.5-5.1) mmol/L Chloride (98-107) mmol/L Carbon Dioxide (21.0-32.0) mmol/L BUN (7.0-18.0) mg/dL Creatinine (0.8-1.3) mg/dL Est Cr Clr Drug Dosing mL/min Estimated GFR (MDRD) ml/min Glucose (74-106) mg/dL Lactic Acid (0.4-2.0) mmol/L Calcium (8.5-10.1) mg/dL Magnesium (1.8-2.4) mg/dL Total Bilirubin (0.2-1.0) mg/dL AST (15-37) IU/L ALT (14-63) IU/L Alkaline Phosphatase (46-116) U/L Troponin I (0.000-0.056) ng/mL Total Protein (6.4-8.2) g/dL Albumin (3.4-5.0) g/dL Globulin (2.6-4.0) g/dL Albumin/Globulin Ratio (0.9-1.6) Lipase (73-393) U/L TSH 3rd Generation (0.36-3.74) uIU/mL Urine Color YELLOW Urine Appearance CLEAR Urine pH 5.5 (5.0-8.0) Ur Specific [place] >= 1.030 (1.001-1.035) Urine Protein 30 H (NEGATIVE) mg/dL Urine Glucose (UA) NEGATIVE (NEGATIVE) mg/dL Urine Ketones TRACE H (NEGATIVE) mg/dL Urine Occult Blood NEGATIVE (NEGATIVE) Urine Nitrite NEGATIVE (NEGATIVE) Urine Bilirubin SMALL H (NEGATIVE) Urine Ictotest NEGATIVE Urine Urobilinogen 0.2 (<2.0) EU/dL Ur Leukocyte Esterase NEGATIVE (NEGATIVE) Urine RBC 0-2 (0-2/HPF) Urine WBC 0-2 (0-5/HPF) Ur Epithelial Cells FEW (NONE-FEW) Urine Bacteria FEW (NEGATIVE) Ur Random Creatinine 322.0 mg/dL Ur Random Sodium 35.0 L (40.0-220.0) mmol/L SARS-CoV-2 RNA (CRISTINE) NEGATIVE (NEGATIVE) 11/13/20 Range/Units 13:36 WBC (4.0-11.0) K/uL RBC (4.50-5.90) M/uL Hgb (13.0-17.0) g/dL Hct (38.0-50.0) % MCV (80.0-98.0) fL MCH (27.0-32.0) pg MCHC (31.0-37.0) g/dL RDW Std Deviation (28.0-62.0) fl RDW Coeff of Chitra (11.0-15.0) % Plt Count (150-400) K/uL MPV (7.40-12.00) fL Neut % (Auto) (48.0-80.0) % Lymph % (Auto) (16.0-40.0) % [place] % (Auto) (0.0-15.0) % Eos % (Auto) (0.0-7.0) % Baso % (Auto) (0.0-1.5) % Neut # (Auto) (1.4-5.7) K/uL Lymph # (Auto) (0.6-2.4) K/uL [place] # (Auto) (0.0-0.8) K/uL Eos # (Auto) (0.0-0.7) K/uL Baso # (Auto) (0.0-0.1) K/uL Nucleated RBC % /100WBC Nucleated RBCs # K/uL Sodium 137 (136-148) mmol/L Potassium 4.4 (3.5-5.1) mmol/L Chloride 102 (98-107) mmol/L Carbon Dioxide 21.5 (21.0-32.0) mmol/L BUN 65 H (7.0-18.0) mg/dL Creatinine 6.1 H (0.8-1.3) mg/dL Est Cr Clr Drug Dosing 11.80 mL/min Estimated GFR (MDRD) 9.2 ml/min Glucose 137 H (74-106) mg/dL Lactic Acid (0.4-2.0) mmol/L Calcium 8.9 (8.5-10.1) mg/dL Magnesium (1.8-2.4) mg/dL Total Bilirubin (0.2-1.0) mg/dL AST (15-37) IU/L ALT (14-63) IU/L Alkaline Phosphatase (46-116) U/L Troponin I (0.000-0.056) ng/mL Total Protein (6.4-8.2) g/dL Albumin (3.4-5.0) g/dL Globulin (2.6-4.0) g/dL Albumin/Globulin Ratio (0.9-1.6) Lipase (73-393) U/L TSH 3rd Generation (0.36-3.74) uIU/mL Urine Color Urine Appearance Urine pH (5.0-8.0) Ur Specific [place] (1.001-1.035) Urine Protein (NEGATIVE) mg/dL Urine Glucose (UA) (NEGATIVE) mg/dL Urine Ketones (NEGATIVE) mg/dL Urine Occult Blood (NEGATIVE) Urine Nitrite (NEGATIVE) Urine Bilirubin (NEGATIVE) Urine Ictotest Urine Urobilinogen (<2.0) EU/dL Ur Leukocyte Esterase (NEGATIVE) Urine RBC (0-2/HPF) Urine WBC (0-5/HPF) Ur Epithelial Cells (NONE-FEW) Urine Bacteria (NEGATIVE) Ur Random Creatinine mg/dL Ur Random Sodium (40.0-220.0) mmol/L SARS-CoV-2 RNA (CRISTINE) (NEGATIVE) Result Diagrams: 11/13/20 11:07 11/13/20 13:36 Sepsis Event Note - Evaluation Sepsis Screening Result: No Definite Risk - Focused Exam Vital Signs: Vital Signs Temp Pulse Resp BP Pulse Ox 11/13/20 16:05 81 20 98/82 98 11/13/20 14:22 82 20 106/65 98 11/13/20 12:57 82 20 90/54 L 99 11/13/20 12:28 84 16 84/44 L 96 11/13/20 12:13 79 17 79/44 L 95 11/13/20 11:58 81 17 97/46 L 98 11/13/20 11:13 97.3 F 87 18 71/40 L 98 - Problem List (1) ATN (acute tubular necrosis) SNOMED Code(s): 72599530 ICD Code: N17.0 - ACUTE KIDNEY FAILURE WITH TUBULAR NECROSIS Status: Acute Current Visit: Yes (2) Hypertension SNOMED Code(s): 92711161 ICD Code: I10 - ESSENTIAL (PRIMARY) HYPERTENSION Status: Acute Current V isit: Yes (3) Hypotension SNOMED Code(s): 91586928 ICD Code: I95.9 - HYPOTENSION, UNSPECIFIED Status: Acute Current Visit: Yes (4) DM type 2 (diabetes mellitus, type 2) SNOMED Code(s): 07789357 ICD Code: E11.9 - TYPE 2 DIABETES MELLITUS WITHOUT COMPLICATIONS Status: Acute Current Visit: Yes (5) Near syncope SNOMED Code(s): 434795855 ICD Code: R55 - SYNCOPE AND COLLAPSE Status: Acute Current Visit: Yes (6) Acute renal failure SNOMED Code(s): 26289352 ICD Code: N17.9 - ACUTE KIDNEY FAILURE, UNSPECIFIED Status: Acute Current Visit: Yes (7) Dehydration SNOMED Code(s): 39411577 ICD Code: E86.0 - DEHYDRATION Status: Acute Current Visit: No Problem List Initiated/Reviewed/Updated: Yes Orders Last 24hrs: Active Orders 24 hr Category Date Time Status Admission Status [Patient Status] [ADT] Stat ADT 11/13/20 15:10 Active Bladder Scan [RC] Q6H Care 11/13/20 16:27 Ordered Blood Glucose Check, Bedside [RC] TIDMEALS Care 11/13/20 16:23 Ordered Intake and Output Strict [RC] ASDIRECTED Care 11/13/20 16:25 Ordered Oxygen Therapy [RC] PRN Care 11/13/20 16:23 Ordered Telemetry Monitoring [Cardiac Monitoring] [RC] . Care 11/13/20 16:26 Ordered DIRECTED Up With Assistance [RC] ASDIRECTED Care 11/13/20 16:23 Ordered VTE/DVT Education [RC] PER UNIT ROUTINE Care 11/13/20 16:23 Ordered Vital Signs [RC] Q4H Care 11/13/20 16:23 Ordered [employer] Diet [DIET] Diet 11/13/20 Lunch Ordered BASIC METABOLIC PANEL,BMP [CHEM] AM Lab 11/14/20 05:11 Ordered C DIFFICILE AG/TOXIN W/REFLEX [RM] Stat Lab 11/13/20 13:13 Ordered CBC WITH AUTO DIFF [HEME] AM Lab 11/14/20 05:11 Ordered CULTURE BLOOD [BC] Stat Lab 11/13/20 11:21 Received CULTURE BLOOD [BC] Stat Lab 11/13/20 11:32 Received Acetaminophen [TylenoL] Med 11/13/20 16:23 Ordered 650 mg PO Q4H PRN Famotidine [Famotidine] Med 11/13/20 21:00 Ordered 40 mg PO BEDTIME Fish Oil/Bath-3 Fatty Acids [Fish Oil] Med 11/14/20 09:00 Ordered 1,200 mg PO QAM Heparin Sodium Med 11/13/20 16:30 Ordered 5,000 units SUBCUT Q8H LORazepam Med 11/13/20 16:27 Ordered 0.5 mg PO BID PRN Multivitamin [Multivitamins] Med 11/14/20 09:00 Ordered 1 tab PO DAILY Ondansetron [Zofran] Med 11/13/20 16:23 Ordered 4 mg IVPUSH Q4H PRN Rosuvastatin Calcium [Rosuvastatin Calcium] Med 11/14/20 09:00 Ordered 20 mg PO DAILY Sertraline [Zoloft] Med 11/14/20 09:00 Ordered 50 mg PO DAILY Sodium Chloride 0.9% [Normal Saline] 1,000 ml Med 11/13/20 16:30 Ordered IV Q8H Sodium Chloride 0.9% [Saline Flush] Med 11/13/20 16:23 Ordered 2.5 ml FLUSH ASDIRECTED PRN Blood Culture x2 Reflex Set [OM.PC] Stat Oth 11/13/20 11:03 Ordered Saline Lock Insert [OM.PC] Routine Oth 11/13/20 16:23 Ordered Resuscitation Status Routine Resus Stat 11/13/20 16:23 Ordered Medication Orders Acetaminophen (Acetaminophen 325 Mg Tab) 650 mg PO Q4H PRN PRN Reason: Pain (Mild 1-3)/fever Heparin Sodium (Porcine) (Heparin Sodium 5,000 Units/Ml Vial) 5,000 units SUBCUT Q8H DAINA Sodium Chloride (Normal Saline) 1,000 mls @ 125 mls/hr IV Q8H DAINA Ondansetron HCl (Ondansetron 4 Mg/2 Ml Sdv) 4 mg IVPUSH Q4H PRN PRN Reason: Nausea Sodium Chloride (Sodium Chloride 0.9% 2.5 Ml Syringe) 2.5 ml FLUSH ASDIRECTED PRN PRN Reason: Keep Vein Open Assessment/Plan Comment:: This 89-year-old male admitted with KOJO, ATN secondary to hypotension and dehydration 1. KOJO -No anuria, acidosis or hyperkalemia noted, no need currently for dialysis. -Renal function improved after 3 L IV fluids. -FENA reveals ATN which is likely prerenal initially and has advanced to ATN due to prolonged course of hypotension and dehydration -Hold all nephrotoxic medications -Hold all antihypertensives at this point, will slowly add back when blood pressure and kidney function allow -Strict I's and O's 2. Hypotension -Likely secondary to dehydration and continued antihypertensive use, at this time no signs of sepsis or infection -Improved with aggressive IV fluid resuscitation -We will continue normal saline 125 mL/h -Hold all antihypertensives at this time. -Orthostatic likely cause of near syncope -Monitor on telemetry for arrhythmias. 3. DM type II -Hold Metformin -NovoLog sliding scale insulin 3 times daily AC 4. Hypertension -Now hypotensive we will continue to hold all antihypertensives 5. BPH -Monitor I's and O's closely BladderScan every 6 hours to monitor for obstructive uropathy -Hold finasteride and Flomax for now will slowly add back when blood pressures allow. VTE prophylaxis: Heparin GI prophylaxis: Pepcid CODE STATUS: Full code Dispo: 2 to 3 days pending improvement
[2020-11-13] MEDS ORDERED: Glucagon,Human Recombinant 1 MG Vial IM PRN (16:51)
[2020-11-13] MEDS ORDERED: 50% Dextrose in Water 50 ML Syringe IV PRN (16:51)
[2020-11-13] MEDS: Sodium Chloride 0.9% 1,000 ML IV SCH (17:50)
[2020-11-13] MEDS: Heparin Sodium 5,000 Units/ML Vial SUBCUT SCH (17:51)
[2020-11-13] MEDS: Insulin Aspart 100 Units/ML 3 ML Pen SUBCUT SCH (19:20)
[2020-11-13] MEDS ORDERED: Insulin Glargine,Human Rec. Analog 100 Units/ML 3 ML Pen SUBCUT SCH (21:00)
[2020-11-13] MEDS: Famotidine 20 MG Tab PO SCH (21:05)
[2020-11-13] MEDS: Cetirizine 10 MG Tab PO SCH (22:37)
[2020-11-14] MEDS: Heparin Sodium 5,000 Units/ML Vial SUBCUT SCH ×3 (00:37→17:20)
[2020-11-14] MEDS: Sodium Chloride 0.9% 1,000 ML IV SCH ×3 (01:52→18:54)
[2020-11-14 06:18] LABS: CARBON DIOXIDE,CO2 19.9 mmol/L (21.0-32.0); POTASSIUM,K 3.9 mmol/L (3.5-5.1)
--- NOTE | 2020-11-14 08:00 | PCM.PN ---
- General Info Date of Service: 11/14/20 Admission Dx/Problem (Free Text): Admission Diagnosis/Problem Admission Diagnosis/Problem Acute renal failure Subjective Update: Feeling much better today. Will attempt to eat lunch. Had some issues voiding overnight noted to be voiding 50-100 mils at a time post void residuals 506 100 mils. Straight cath x2. Denies any chest pain shortness of breath. Dizziness is much improved. Did hold off on Lantus last night reports he has been taking Lasix at home to almost none due to his poor appetite. No bowel movements ov [place] did have large soft bowel movement the morning feeling much better. Functional Status: Reports: Pain Controlled, Tolerating Diet, Ambulating - Review of Systems General: Reports: No Symptoms. Denies: Weakness, Malaise HEENT: Reports: No Symptoms. Denies: Headaches, Sore Throat, Visual Changes Pulmonary: Reports: No Symptoms. Denies: Shortness of Breath Cardiovascular: Reports: No Symptoms. Denies: Chest Pain Gastrointestinal: Reports: No Symptoms. Denies: Abdominal Pain, Nausea, Vomiting Genitourinary: Reports: Retention Musculoskeletal: Reports: No Symptoms. Denies: Shoulder Pain, Back Pain Skin: Reports: No Symptoms Neurological: Reports: No Symptoms Psychiatric: Reports: No Symptoms - Patient Data Vitals - Most Recent: Last Vital Signs Temp 97.8 F 11/14/20 07:53 Pulse 94 11/14/20 07:53 Resp 18 11/14/20 07:53 BP 151/75 H 11/14/20 07:53 Pulse Ox 97 11/14/20 07:53 Orthostatic Blood Pressure [ 76/41 Standing] Orthostatic Blood Pressure [ 71/45 Sitting] Orthostatic Blood Pressure [ 76/45 Supine] Weight - Most Recent: 93.213 kg I&O - Last 24 Hours: Intake & Output 11/13/20 11/14/20 11/14/20 22:59 06:59 14:59 Intake Total 1740 Output Total 182 Balance -8 Lab Results Last 24 Hours: Laboratory Results - last 24 hr 11/13/20 11/13/20 11/13/20 Range/Units 11:07 11:07 11:21 WBC 7.51 (4.0-11.0) K/uL RBC 4.41 L (4.50-5.90) M/uL Hgb 14.2 (13.0-17.0) g/dL Hct 41.4 (38.0-50.0) % MCV 93.9 (80.0-98.0) fL MCH 32.2 H (27.0-32.0) pg MCHC 34.3 (31.0-37.0) g/dL RDW Std Deviation 46.1 (28.0-62.0) fl RDW Coeff of Chitra 13 (11.0-15.0) % Plt Count 262 (150-400) K/uL MPV 10.20 (7.40-12.00) fL Neut % (Auto) 68.0 (48.0-80.0) % Lymph % (Auto) 18.4 (16.0-40.0) % [place] % (Auto) 10.3 (0.0-15.0) % Eos % (Auto) 3.2 (0.0-7.0) % Baso % (Auto) 0.1 (0.0-1.5) % Neut # (Auto) 5.1 (1.4-5.7) K/uL Lymph # (Auto) 1.4 (0.6-2.4) K/uL [place] # (Auto) 0.8 (0.0-0.8) K/uL Eos # (Auto) 0.2 (0.0-0.7) K/uL Baso # (Auto) 0.0 (0.0-0.1) K/uL Nucleated RBC % 0.0 /100WBC Nucleated RBCs # 0 K/uL Sodium 136 (136-148) mmol/L Potassium 4.6 (3.5-5.1) mmol/L Chloride 100 (98-107) mmol/L Carbon Dioxide 23.5 (21.0-32.0) mmol/L BUN 65 H (7.0-18.0) mg/dL Creatinine 6.7 H (0.8-1.3) mg/dL Est Cr Clr Drug Dosing 10.74 mL/min Estimated GFR (MDRD) 8.2 ml/min Glucose 160 H (74-106) mg/dL POC Glucose (70-99) mg/dL Lactic Acid 1.7 (0.4-2.0) mmol/L Calcium 9.9 (8.5-10.1) mg/dL Magnesium 1.8 (1.8-2.4) mg/dL Total Bilirubin 0.4 (0.2-1.0) mg/dL AST 9 L (15-37) IU/L ALT 21 (14-63) IU/L Alkaline Phosphatase 41 L (46-116) U/L Troponin I < 0.050 (0.000-0.056) ng/mL Total Protein 7.8 (6.4-8.2) g/dL Albumin 3.7 (3.4-5.0) g/dL Globulin 4.1 H (2.6-4.0) g/dL Albumin/Globulin Ratio 0.9 (0.9-1.6) Lipase 123 (73-393) U/L TSH 3rd Generation 0.67 (0.36-3.74) uIU/mL Urine Color Urine Appearance Urine pH (5.0-8.0) Ur Specific Mclean (1.001-1.035) Urine Protein (NEGATIVE) mg/dL Urine Glucose (UA) (NEGATIVE) mg/dL Urine Ketones (NEGATIVE) mg/dL Urine Occult Blood (NEGATIVE) Urine Nitrite (NEGATIVE) Urine Bilirubin (NEGATIVE) Urine Ictotest Urine Urobilinogen (<2.0) EU/dL Ur Leukocyte Esterase (NEGATIVE) Urine RBC (0-2/HPF) Urine WBC (0-5/HPF) Ur Epithelial Cells (NONE-FEW) Urine Bacteria (NEGATIVE) Ur Random Creatinine mg/dL Ur Random Sodium (40.0-220.0) mmol/L SARS-CoV-2 RNA (CRISTINE) (NEGATIVE) 11/13/20 11/13/20 11/13/20 Range/Units 12:38 13:23 13:23 WBC (4.0-11.0) K/uL RBC (4.50-5.90) M/uL Hgb (13.0-17.0) g/dL Hct (38.0-50.0) % MCV (80.0-98.0) fL MCH (27.0-32.0) pg MCHC (31.0-37.0) g/dL RDW Std Deviation (28.0-62.0) fl RDW Coeff of Chitra (11.0-15.0) % Plt Count (150-400) K/uL MPV (7.40-12.00) fL Neut % (Auto) (48.0-80.0) % Lymph % (Auto) (16.0-40.0) % [place] % (Auto) (0.0-15.0) % Eos % (Auto) (0.0-7.0) % Baso % (Auto) (0.0-1.5) % Neut # (Auto) (1.4-5.7) K/uL Lymph # (Auto) (0.6-2.4) K/uL [place] # (Auto) (0.0-0.8) K/uL Eos # (Auto) (0.0-0.7) K/uL Baso # (Auto) (0.0-0.1) K/uL Nucleated RBC % /100WBC Nucleated RBCs # K/uL Sodium (136-148) mmol/L Potassium (3.5-5.1) mmol/L Chloride (98-107) mmol/L Carbon Dioxide (21.0-32.0) mmol/L BUN (7.0-18.0) mg/dL Creatinine (0.8-1.3) mg/dL Est Cr Clr Drug Dosing mL/min Estimated GFR (MDRD) ml/min Glucose (74-106) mg/dL POC Glucose (70-99) mg/dL Lactic Acid (0.4-2.0) mmol/L Calcium (8.5-10.1) mg/dL Magnesium (1.8-2.4) mg/dL Total Bilirubin (0.2-1.0) mg/dL AST (15-37) IU/L ALT (14-63) IU/L Alkaline Phosphatase (46-116) U/L Troponin I (0.000-0.056) ng/mL Total Protein (6.4-8.2) g/dL Albumin (3.4-5.0) g/dL Globulin (2.6-4.0) g/dL Albumin/Globulin Ratio (0.9-1.6) Lipase (73-393) U/L TSH 3rd Generation (0.36-3.74) uIU/mL Urine Color YELLOW Urine Appearance CLEAR Urine pH 5.5 (5.0-8.0) Ur Specific Mclean >= 1.030 (1.001-1.035) Urine Protein 30 H (NEGATIVE) mg/dL Urine Glucose (UA) NEGATIVE (NEGATIVE) mg/dL Urine Ketones TRACE H (NEGATIVE) mg/dL Urine Occult Blood NEGATIVE (NEGATIVE) Urine Nitrite NEGATIVE (NEGATIVE) Urine Bilirubin SMALL H (NEGATIVE) Urine Ictotest NEGATIVE Urine Urobilinogen 0.2 (<2.0) EU/dL Ur Leukocyte Esterase NEGATIVE (NEGATIVE) Urine RBC 0-2 (0-2/HPF) Urine WBC 0-2 (0-5/HPF) Ur Epithelial Cells FEW (NONE-FEW) Urine Bacteria FEW (NEGATIVE) Ur Random Creatinine 322.0 mg/dL Ur Random Sodium 35.0 L (40.0-220.0) mmol/L SARS-CoV-2 RNA (CRISTINE) NEGATIVE (NEGATIVE) 11/13/20 11/13/20 11/13/20 Range/Units 13:36 18:29 21:14 WBC (4.0-11.0) K/uL RBC (4.50-5.90) M/uL Hgb (13.0-17.0) g/dL Hct (38.0-50.0) % MCV (80.0-98.0) fL MCH (27.0-32.0) pg MCHC (31.0-37.0) g/dL RDW Std Deviation (28.0-62.0) fl RDW Coeff of Chitra (11.0-15.0) % Plt Count (150-400) K/uL MPV (7.40-12.00) fL Neut % (Auto) (48.0-80.0) % Lymph % (Auto) (16.0-40.0) % [place] % (Auto) (0.0-15.0) % Eos % (Auto) (0.0-7.0) % Baso % (Auto) (0.0-1.5) % Neut # (Auto) (1.4-5.7) K/uL Lymph # (Auto) (0.6-2.4) K/uL [place] # (Auto) (0.0-0.8) K/uL Eos # (Auto) (0.0-0.7) K/uL Baso # (Auto) (0.0-0.1) K/uL Nucleated RBC % /100WBC Nucleated RBCs # K/uL Sodium 137 (136-148) mmol/L Potassium 4.4 (3.5-5.1) mmol/L Chloride 102 (98-107) mmol/L Carbon Dioxide 21.5 (21.0-32.0) mmol/L BUN 65 H (7.0-18.0) mg/dL Creatinine 6.1 H (0.8-1.3) mg/dL Est Cr Clr Drug Dosing 11.80 mL/min Estimated GFR (MDRD) 9.2 ml/min Glucose 137 H (74-106) mg/dL POC Glucose 115 H 97 (70-99) mg/dL Lactic Acid (0.4-2.0) mmol/L Calcium 8.9 (8.5-10.1) mg/dL Magnesium (1.8-2.4) mg/dL Total Bilirubin (0.2-1.0) mg/dL AST (15-37) IU/L ALT (14-63) IU/L Alkaline Phosphatase (46-116) U/L Troponin I (0.000-0.056) ng/mL Total Protein (6.4-8.2) g/dL Albumin (3.4-5.0) g/dL Globulin (2.6-4.0) g/dL Albumin/Globulin Ratio (0.9-1.6) Lipase (73-393) U/L TSH 3rd Generation (0.36-3.74) uIU/mL Urine Color Urine Appearance Urine pH (5.0-8.0) Ur Specific Mclean (1.001-1.035) Urine Protein (NEGATIVE) mg/dL Urine Glucose (UA) (NEGATIVE) mg/dL Urine Ketones (NEGATIVE) mg/dL Urine Occult Blood (NEGATIVE) Urine Nitrite (NEGATIVE) Urine Bilirubin (NEGATIVE) Urine Ictotest Urine Urobilinogen (<2.0) EU/dL Ur Leukocyte Esterase (NEGATIVE) Urine RBC (0-2/HPF) Urine WBC (0-5/HPF) Ur Epithelial Cells (NONE-FEW) Urine Bacteria (NEGATIVE) Ur Random Creatinine mg/dL Ur Random Sodium (40.0-220.0) mmol/L SARS-CoV-2 RNA (CRISTINE) (NEGATIVE) 11/14/20 11/14/20 11/14/20 Range/Units 05:16 05:16 06:46 WBC 4.74 (4.0-11.0) K/uL RBC 3.82 L (4.50-5.90) M/uL Hgb 12.0 L (13.0-17.0) g/dL Hct 35.6 L (38.0-50.0) % MCV 93.2 (80.0-98.0) fL MCH 31.4 (27.0-32.0) pg MCHC 33.7 (31.0-37.0) g/dL RDW Std Deviation 45.3 (28.0-62.0) fl RDW Coeff of Chitra 13 (11.0-15.0) % Plt Count 236 (150-400) K/uL MPV 10.50 (7.40-12.00) fL Neut % (Auto) 44.6 L (48.0-80.0) % Lymph % (Auto) 39.0 (16.0-40.0) % [place] % (Auto) 10.3 (0.0-15.0) % Eos % (Auto) 5.9 (0.0-7.0) % Baso % (Auto) 0.2 (0.0-1.5) % Neut # (Auto) 2.1 (1.4-5.7) K/uL Lymph # (Auto) 1.9 (0.6-2.4) K/uL [place] # (Auto) 0.5 (0.0-0.8) K/uL Eos # (Auto) 0.3 (0.0-0.7) K/uL Baso # (Auto) 0.0 (0.0-0.1) K/uL Nucleated RBC % 0.0 /100WBC Nucleated RBCs # 0 K/uL Sodium 139 (136-148) mmol/L Potassium 3.9 (3.5-5.1) mmol/L Chloride 106 (98-107) mmol/L Carbon Dioxide 19.9 L (21.0-32.0) mmol/L BUN 45 H (7.0-18.0) mg/dL Creatinine 3.2 H (0.8-1.3) mg/dL Est Cr Clr Drug Dosing 22.50 mL/min Estimated GFR (MDRD) 19.4 ml/min Glucose 97 (74-106) mg/dL POC Glucose 97 (70-99) mg/dL Lactic Acid (0.4-2.0) mmol/L Calcium 8.3 L (8.5-10.1) mg/dL Magnesium (1.8-2.4) mg/dL Total Bilirubin (0.2-1.0) mg/dL AST (15-37) IU/L ALT (14-63) IU/L Alkaline Phosphatase (46-116) U/L Troponin I (0.000-0.056) ng/mL Total Protein (6.4-8.2) g/dL Albumin (3.4-5.0) g/dL Globulin (2.6-4.0) g/dL Albumin/Globulin Ratio (0.9-1.6) Lipase (73-393) U/L TSH 3rd Generation (0.36-3.74) uIU/mL Urine Color Urine Appearance Urine pH (5.0-8.0) Ur Specific Mclean (1.001-1.035) Urine Protein (NEGATIVE) mg/dL Urine Glucose (UA) (NEGATIVE) mg/dL Urine Ketones (NEGATIVE) mg/dL Urine Occult Blood (NEGATIVE) Urine Nitrite (NEGATIVE) Urine Bilirubin (NEGATIVE) Urine Ictotest Urine Urobilinogen (<2.0) EU/dL Ur Leukocyte Esterase (NEGATIVE) Urine RBC (0-2/HPF) Urine WBC (0-5/HPF) Ur Epithelial Cells (NONE-FEW) Urine Bacteria (NEGATIVE) Ur Random Creatinine mg/dL Ur Random Sodium (40.0-220.0) mmol/L SARS-CoV-2 RNA (CRISTINE) (NEGATIVE) Med Orders - Current: Current Medications Acetaminophen (Acetaminophen 325 Mg Tab) 650 mg PO Q4H PRN PRN Reason: Pain (Mild 1-3)/fever Cetirizine HCl (Cetirizine 10 Mg Tab) 10 mg PO DAILY [facility] Last Admin: 11/13/20 22:37 Dose: 10 mg Documented by: Dextrose/Water (50% Dextrose In Water 50 Ml Syringe) 50 ml IV ASDIRECTED PRN PRN Reason: Hypoglycemia Famotidine (Famotidine 20 Mg Tab) 40 mg PO BEDTIME [facility] Last Admin: 11/13/20 21:05 Dose: 40 mg Documented by: Fish Oil (Fish Oil/[place]-3 Fatty Acids 1 Gm Cap) 1 gm PO QAM [facility] Glucagon (Glucagon,Human Recombinant 1 Mg Vial) 1 mg IM ASDIRECTED PRN PRN Reason: Hypoglycemia Heparin Sodium (Porcine) (Heparin Sodium 5,000 Units/Ml Vial) 5,000 units SUBCUT Q8H [facility] Last Admin: 11/14/20 00:37 Dose: 5,000 units Documented by: Sodium Chloride (Normal Saline) 1,000 mls @ 125 mls/hr IV Q8H [facility] Last Admin: 11/14/20 01:52 Dose: 125 mls/hr Documented by: Insulin Aspart (Insulin Aspart 100 Units/Ml 3 Ml Pen) 0 unit SUBCUT TIDAC [facility]; Protocol Last Admin: 11/13/20 19:20 Dose: Not Given Documented by: Insulin Glargine (Insulin Glargine,Human Rec. Analog 100 Units/Ml 3 Ml Pen) 30 units SUBCUT BEDTIME [facility] Last Admin: 11/13/20 22:37 Dose: Not Given Documented by: Lorazepam (Lorazepam 0.5 Mg Tab) 0.5 mg PO BID PRN PRN Reason: Anxiety Last Admin: 11/13/20 21:06 Dose: 0.5 mg Documented by: Multivitamins/Minerals/Vitamin C (Multivitamin Tab) 1 tab PO DAILY [facility] Ondansetron HCl (Ondansetron 4 Mg/2 Ml Sdv) 4 mg IVPUSH Q4H PRN PRN Reason: Nausea Rosuvastatin Calcium (Rosuvastatin 10 Mg Tab) 20 mg PO DAILY [facility] Sertraline HCl (Sertraline 50 Mg Tab) 50 mg PO DAILY [facility] Sodium Chloride (Sodium Chloride 0.9% 2.5 Ml Syringe) 2.5 ml FLUSH ASDIRECTED PRN PRN Reason: Keep Vein Open Discontinued Medications Sodium Chloride (Normal Saline) 1,000 mls @ 999 mls/hr IV .Bolus ONE Stop: 11/13/20 12:17 Last Admin: 11/13/20 11:17 Dose: 999 mls/hr Documented by: Sodium Chloride (Normal Saline) 1,000 mls @ 1,000 mls/hr IV .Bolus ONE Stop: 11/13/20 13:51 Last Admin: 11/13/20 12:56 Dose: 1,000 mls/hr Documented by: Sodium Chloride (Normal Saline) 1,000 mls @ 1,000 mls/hr IV .Bolus ONE Stop: 11/13/20 14:55 Last Admin: 11/13/20 14:21 Dose: 1,000 mls/hr Documented by: Sodium Chloride (Sodium Chloride 0.9% 10 Ml Syringe) 10 ml FLUSH ASDIRECTED PRN PRN Reason: Keep Vein Open Last Admin: 11/13/20 11:17 Dose: 10 ml Documented by: Sodium Chloride (Sodium Chloride 0.9% 2.5 Ml Syringe) 2.5 ml FLUSH ASDIRECTED PRN PRN Reason: Keep Vein Open Last Admin: 11/13/20 11:18 Dose: 2.5 ml Documented by: - Exam General: Alert, Oriented, Cooperative, No Acute Distress Lungs: Clear to Auscultation, Normal Respiratory Effort Cardiovascular: Regular Rate, Regular Rhythm GI/Abdominal Exam: Normal Bowel Sounds, Soft, Non-Tender (Male) Exam: Normal Inspection, Other (Retention noted and discomfort when bladder is full.) Extremities: Normal Inspection, Normal Range of Motion, Non-Tender, No Pedal Edema Wound/Incisions: Healing Well Neurological: No New Focal Deficit Psy/Mental Status: Alert, Normal Affect, Normal Mood - Patient Data Lab Results Last 24 hrs: Laboratory Results - last 24 hr 11/13/20 11/13/20 11/13/20 Range/Units 11:07 11:07 11:21 WBC 7.51 (4.0-11.0) K/uL RBC 4.41 L (4.50-5.90) M/uL Hgb 14.2 (13.0-17.0) g/dL Hct 41.4 (38.0-50.0) % MCV 93.9 (80.0-98.0) fL MCH 32.2 H (27.0-32.0) pg MCHC 34.3 (31.0-37.0) g/dL RDW Std Deviation 46.1 (28.0-62.0) fl RDW Coeff of Chitra 13 (11.0-15.0) % Plt Count 262 (150-400) K/uL MPV 10.20 (7.40-12.00) fL Neut % (Auto) 68.0 (48.0-80.0) % Lymph % (Auto) 18.4 (16.0-40.0) % [place] % (Auto) 10.3 (0.0-15.0) % Eos % (Auto) 3.2 (0.0-7.0) % Baso % (Auto) 0.1 (0.0-1.5) % Neut # (Auto) 5.1 (1.4-5.7) K/uL Lymph # (Auto) 1.4 (0.6-2.4) K/uL [place] # (Auto) 0.8 (0.0-0.8) K/uL Eos # (Auto) 0.2 (0.0-0.7) K/uL Baso # (Auto) 0.0 (0.0-0.1) K/uL Nucleated RBC % 0.0 /100WBC Nucleated RBCs # 0 K/uL Sodium 136 (136-148) mmol/L Potassium 4.6 (3.5-5.1) mmol/L Chloride 100 (98-107) mmol/L Carbon Dioxide 23.5 (21.0-32.0) mmol/L BUN 65 H (7.0-18.0) mg/dL Creatinine 6.7 H (0.8-1.3) mg/dL Est Cr Clr Drug Dosing 10.74 mL/min Estimated GFR (MDRD) 8.2 ml/min Glucose 160 H (74-106) mg/dL POC Glucose (70-99) mg/dL Lactic Acid 1.7 (0.4-2.0) mmol/L Calcium 9.9 (8.5-10.1) mg/dL Magnesium 1.8 (1.8-2.4) mg/dL Total Bilirubin 0.4 (0.2-1.0) mg/dL AST 9 L (15-37) IU/L ALT 21 (14-63) IU/L Alkaline Phosphatase 41 L (46-116) U/L Troponin I < 0.050 (0.000-0.056) ng/mL Total Protein 7.8 (6.4-8.2) g/dL Albumin 3.7 (3.4-5.0) g/dL Globulin 4.1 H (2.6-4.0) g/dL Albumin/Globulin Ratio 0.9 (0.9-1.6) Lipase 123 (73-393) U/L TSH 3rd Generation 0.67 (0.36-3.74) uIU/mL Urine Color Urine Appearance Urine pH (5.0-8.0) Ur Specific Mclean (1.001-1.035) Urine Protein (NEGATIVE) mg/dL Urine Glucose (UA) (NEGATIVE) mg/dL Urine Ketones (NEGATIVE) mg/dL Urine Occult Blood (NEGATIVE) Urine Nitrite (NEGATIVE) Urine Bilirubin (NEGATIVE) Urine Ictotest Urine Urobilinogen (<2.0) EU/dL Ur Leukocyte Esterase (NEGATIVE) Urine RBC (0-2/HPF) Urine WBC (0-5/HPF) Ur Epithelial Cells (NONE-FEW) Urine Bacteria (NEGATIVE) Ur Random Creatinine mg/dL Ur Random Sodium (40.0-220.0) mmol/L SARS-CoV-2 RNA (CRISTINE) (NEGATIVE) 11/13/20 11/13/20 11/13/20 Range/Units 12:38 13:23 13:23 WBC (4.0-11.0) K/uL RBC (4.50-5.90) M/uL Hgb (13.0-17.0) g/dL Hct (38.0-50.0) % MCV (80.0-98.0) fL MCH (27.0-32.0) pg MCHC (31.0-37.0) g/dL RDW Std Deviation (28.0-62.0) fl RDW Coeff of Chitra (11.0-15.0) % Plt Count (150-400) K/uL MPV (7.40-12.00) fL Neut % (Auto) (48.0-80.0) % Lymph % (Auto) (16.0-40.0) % [place] % (Auto) (0.0-15.0) % Eos % (Auto) (0.0-7.0) % Baso % (Auto) (0.0-1.5) % Neut # (Auto) (1.4-5.7) K/uL Lymph # (Auto) (0.6-2.4) K/uL [place] # (Auto) (0.0-0.8) K/uL Eos # (Auto) (0.0-0.7) K/uL Baso # (Auto) (0.0-0.1) K/uL Nucleated RBC % /100WBC Nucleated RBCs # K/uL Sodium (136-148) mmol/L Potassium (3.5-5.1) mmol/L Chloride (98-107) mmol/L Carbon Dioxide (21.0-32.0) mmol/L BUN (7.0-18.0) mg/dL Creatinine (0.8-1.3) mg/dL Est Cr Clr Drug Dosing mL/min Estimated GFR (MDRD) ml/min Glucose (74-106) mg/dL POC Glucose (70-99) mg/dL Lactic Acid (0.4-2.0) mmol/L Calcium (8.5-10.1) mg/dL Magnesium (1.8-2.4) mg/dL Total Bilirubin (0.2-1.0) mg/dL AST (15-37) IU/L ALT (14-63) IU/L Alkaline Phosphatase (46-116) U/L Troponin I (0.000-0.056) ng/mL Total Protein (6.4-8.2) g/dL Albumin (3.4-5.0) g/dL Globulin (2.6-4.0) g/dL Albumin/Globulin Ratio (0.9-1.6) Lipase (73-393) U/L TSH 3rd Generation (0.36-3.74) uIU/mL Urine Color YELLOW Urine Appearance CLEAR Urine pH 5.5 (5.0-8.0) Ur Specific Mclean >= 1.030 (1.001-1.035) Urine Protein 30 H (NEGATIVE) mg/dL Urine Glucose (UA) NEGATIVE (NEGATIVE) mg/dL Urine Ketones TRACE H (NEGATIVE) mg/dL Urine Occult Blood NEGATIVE (NEGATIVE) Urine Nitrite NEGATIVE (NEGATIVE) Urine Bilirubin SMALL H (NEGATIVE) Urine Ictotest NEGATIVE Urine Urobilinogen 0.2 (<2.0) EU/dL Ur Leukocyte Esterase NEGATIVE (NEGATIVE) Urine RBC 0-2 (0-2/HPF) Urine WBC 0-2 (0-5/HPF) Ur Epithelial Cells FEW (NONE-FEW) Urine Bacteria FEW (NEGATIVE) Ur Random Creatinine 322.0 mg/dL Ur Random Sodium 35.0 L (40.0-220.0) mmol/L SARS-CoV-2 RNA (CRISTINE) NEGATIVE (NEGATIVE) 05/24/21 05/24/21 05/24/21 Range/Units 13:36 18:29 21:14 WBC (4.0-11.0) K/uL RBC (4.50-5.90) M/uL Hgb (13.0-17.0) g/dL Hct (38.0-50.0) % MCV (80.0-98.0) fL MCH (27.0-32.0) pg MCHC (31.0-37.0) g/dL RDW Std Deviation (28.0-62.0) fl RDW Coeff of Chitra (11.0-15.0) % Plt Count (150-400) K/uL MPV (7.40-12.00) fL Neut % (Auto) (48.0-80.0) % Lymph % (Auto) (16.0-40.0) % [place] % (Auto) (0.0-15.0) % Eos % (Auto) (0.0-7.0) % Baso % (Auto) (0.0-1.5) % Neut # (Auto) (1.4-5.7) K/uL Lymph # (Auto) (0.6-2.4) K/uL [place] # (Auto) (0.0-0.8) K/uL Eos # (Auto) (0.0-0.7) K/uL Baso # (Auto) (0.0-0.1) K/uL Nucleated RBC % /100WBC Nucleated RBCs # K/uL Sodium 137 (136-148) mmol/L Potassium 4.4 (3.5-5.1) mmol/L Chloride 102 (98-107) mmol/L Carbon Dioxide 21.5 (21.0-32.0) mmol/L BUN 65 H (7.0-18.0) mg/dL Creatinine 6.1 H (0.8-1.3) mg/dL Est Cr Clr Drug Dosing 11.80 mL/min Estimated GFR (MDRD) 9.2 ml/min Glucose 137 H (74-106) mg/dL POC Glucose 115 H 97 (70-99) mg/dL Lactic Acid (0.4-2.0) mmol/L Calcium 8.9 (8.5-10.1) mg/dL Magnesium (1.8-2.4) mg/dL Total Bilirubin (0.2-1.0) mg/dL AST (15-37) IU/L ALT (14-63) IU/L Alkaline Phosphatase (46-116) U/L Troponin I (0.000-0.056) ng/mL Total Protein (6.4-8.2) g/dL Albumin (3.4-5.0) g/dL Globulin (2.6-4.0) g/dL Albumin/Globulin Ratio (0.9-1.6) Lipase (73-393) U/L TSH 3rd Generation (0.36-3.74) uIU/mL Urine Color Urine Appearance Urine pH (5.0-8.0) Ur Specific Mclean (1.001-1.035) Urine Protein (NEGATIVE) mg/dL Urine Glucose (UA) (NEGATIVE) mg/dL Urine Ketones (NEGATIVE) mg/dL Urine Occult Blood (NEGATIVE) Urine Nitrite (NEGATIVE) Urine Bilirubin (NEGATIVE) Urine Ictotest Urine Urobilinogen (<2.0) EU/dL Ur Leukocyte Esterase (NEGATIVE) Urine RBC (0-2/HPF) Urine WBC (0-5/HPF) Ur Epithelial Cells (NONE-FEW) Urine Bacteria (NEGATIVE) Ur Random Creatinine mg/dL Ur Random Sodium (40.0-220.0) mmol/L SARS-CoV-2 RNA (CRISTINE) (NEGATIVE) 11/14/20 11/14/20 11/14/20 Range/Units 05:16 05:16 06:46 WBC 4.74 (4.0-11.0) K/uL RBC 3.82 L (4.50-5.90) M/uL Hgb 12.0 L (13.0-17.0) g/dL Hct 35.6 L (38.0-50.0) % MCV 93.2 (80.0-98.0) fL MCH 31.4 (27.0-32.0) pg MCHC 33.7 (31.0-37.0) g/dL RDW Std Deviation 45.3 (28.0-62.0) fl RDW Coeff of Chitra 13 (11.0-15.0) % Plt Count 236 (150-400) K/uL MPV 10.50 (7.40-12.00) fL Neut % (Auto) 44.6 L (48.0-80.0) % Lymph % (Auto) 39.0 (16.0-40.0) % [place] % (Auto) 10.3 (0.0-15.0) % Eos % (Auto) 5.9 (0.0-7.0) % Baso % (Auto) 0.2 (0.0-1.5) % Neut # (Auto) 2.1 (1.4-5.7) K/uL Lymph # (Auto) 1.9 (0.6-2.4) K/uL [place] # (Auto) 0.5 (0.0-0.8) K/uL Eos # (Auto) 0.3 (0.0-0.7) K/uL Baso # (Auto) 0.0 (0.0-0.1) K/uL Nucleated RBC % 0.0 /100WBC Nucleated RBCs # 0 K/uL Sodium 139 (136-148) mmol/L Potassium 3.9 (3.5-5.1) mmol/L Chloride 106 (98-107) mmol/L Carbon Dioxide 19.9 L (21.0-32.0) mmol/L BUN 45 H (7.0-18.0) mg/dL Creatinine 3.2 H (0.8-1.3) mg/dL Est Cr Clr Drug Dosing 22.50 mL/min Estimated GFR (MDRD) 19.4 ml/min Glucose 97 (74-106) mg/dL POC Glucose 97 (70-99) mg/dL Lactic Acid (0.4-2.0) mmol/L Calcium 8.3 L (8.5-10.1) mg/dL Magnesium (1.8-2.4) mg/dL Total Bilirubin (0.2-1.0) mg/dL AST (15-37) IU/L ALT (14-63) IU/L Alkaline Phosphatase (46-116) U/L Troponin I (0.000-0.056) ng/mL Total Protein (6.4-8.2) g/dL Albumin (3.4-5.0) g/dL Globulin (2.6-4.0) g/dL Albumin/Globulin Ratio (0.9-1.6) Lipase (73-393) U/L TSH 3rd Generation (0.36-3.74) uIU/mL Urine Color Urine Appearance Urine pH (5.0-8.0) Ur Specific Mclean (1.001-1.035) Urine Protein (NEGATIVE) mg/dL Urine Glucose (UA) (NEGATIVE) mg/dL Urine Ketones (NEGATIVE) mg/dL Urine Occult Blood (NEGATIVE) Urine Nitrite (NEGATIVE) Urine Bilirubin (NEGATIVE) Urine Ictotest Urine Urobilinogen (<2.0) EU/dL Ur Leukocyte Esterase (NEGATIVE) Urine RBC (0-2/HPF) Urine WBC (0-5/HPF) Ur Epithelial Cells (NONE-FEW) Urine Bacteria (NEGATIVE) Ur Random Creatinine mg/dL Ur Random Sodium (40.0-220.0) mmol/L SARS-CoV-2 RNA (CRISTINE) (NEGATIVE) Result Diagrams: 11/14/20 05:16 11/14/20 05:16 Sepsis Event Note - Evaluation Sepsis Screening Result: No Definite Risk - Focused Exam Vital Signs: Vital Signs Temp Pulse Resp BP Pulse Ox 11/14/20 07:53 97.8 F 94 18 151/75 H 97 11/14/20 04:25 96.8 F L 86 20 137/78 97 11/14/20 00:35 97.4 F 84 18 110/59 L 93 L - Problem List & Annotations (1) ATN (acute tubular necrosis) SNOMED Code(s): 31562210 Code(s): N17.0 - ACUTE KIDNEY FAILURE WITH TUBULAR NECROSIS Status: Acute Current Visit: Yes (2) Hypertension SNOMED Code(s): 94611375 Code(s): I10 - ESSENTIAL (PRIMARY) HYPERTENSION Status: Acute Current Visit: Yes (3) Hypotension SNOMED Code(s): 63763752 Code(s): I95.9 - HYPOTENSION, UNSPECIFIED Status: Acute Current Visit: Yes (4) DM type 2 (diabetes mellitus, type 2) SNOMED Code(s): 33933288 Code(s): E11.9 - TYPE 2 DIABETES MELLITUS WITHOUT COMPLICATIONS Status: Acute Current Visit: Yes (5) Near syncope SNOMED Code(s): 071064264 Code(s): R55 - SYNCOPE AND COLLAPSE Status: Acute Current Visit: Yes (6) Acute renal failure SNOMED Code(s): 81766186 Code(s): N17.9 - ACUTE KIDNEY FAILURE, UNSPECIFIED Status: Acute Current Visit: Yes (7) Dehydration SNOMED Code(s): 95265997 Code(s): E86.0 - DEHYDRATION Status: Acute Current Visit: No (8) Obstructive uropathy SNOMED Code(s): 0123734 Code(s): N13.9 - OBSTRUCTIVE AND REFLUX UROPATHY, UNSPECIFIED Status: Acute Current Visit: Yes - Problem List Review Problem List Initiated/Reviewed/Updated: Yes - My Orders Last 24 Hours: My Active Orders 11/13/20 Lunch [employer] Diet [DIET] 11/13/20 16:23 Blood Glucose Check, Bedside [RC] TIDMEALS Oxygen Therapy [RC] PRN Up With Assistance [RC] ASDIRECTED VTE/DVT Education [RC] PER UNIT ROUTINE Vital Signs [RC] Q4H Acetaminophen [TylenoL] 650 mg PO Q4H PRN Ondansetron [Zofran] 4 mg IVPUSH Q4H PRN Sodium Chloride 0.9% [Saline Flush] 2.5 ml FLUSH ASDIRECTED PRN Saline Lock Insert [OM.PC] Routine Resuscitation Status Routine 11/13/20 16:25 Intake and Output Strict [RC] ASDIRECTED 11/13/20 16:26 Telemetry Monitoring [Cardiac Monitoring] [RC] Q8H 11/13/20 16:27 Bladder Scan [RC] Q6H LORazepam [Ativan] 0.5 mg PO BID PRN 11/13/20 16:51 Dextrose 50% in Water 50 ml IV ASDIRECTED PRN Glucagon,Human Recombinant [GlucaGen] 1 mg IM ASDIRECTED PRN 11/13/20 17:00 Heparin Sodium 5,000 units SUBCUT Q8H Insulin Aspart [NovoLOG] See Protocol SUBCUT TIDAC 11/13/20 18:00 Sodium Chloride 0.9% [Normal Saline] 1,000 ml IV Q8H 11/13/20 21:00 Famotidine [Pepcid] 40 mg PO BEDTIME Insulin Glarg,Human.Rec.Analog [LantUS Solostar] 30 units SUBCUT BEDTIME 11/14/20 09:00 Fish Oil/[place]-3 Fatty Acids [Fish Oil] 1 gm PO QAM Multivitamins [Tab-A-Jooã] 1 tab PO DAILY Rosuvastatin [Crestor] 20 mg PO DAILY Sertraline [Zoloft] 50 mg PO DAILY - Plan Plan:: This 89-year-old male admitted with KOJO, ATN secondary to hypotension and dehydration 1. KOJO -Renal function improved overnight, Cr 3.2 today. -Likely component of obstructive uropathy due to BPH - Bladder scans overnight showed 500-600 post void residual and straight cath x2 - Place pride today, arrange outpatient urology in [place] as Dr Ellis is no longer taking appointments, patient aware and requested [place]. -Avoid nephrotoxic medications -Strict I's and O's 2. Hypotension -Resolved. -Slowly restart antihypertensives. -continue normal saline 125 mL/h -Monitor on telemetry for arrhythmias. 3. DM type II -Hold Metformin -NovoLog sliding scale insulin 3 times daily AC - Lantus 10 units, reports he was cut down to 30 and has not taken that recently due to poor appetite. 4. Hypertension -Slowly restart antihypertensives. 5. BPH - Restart Proscar and Flomax -Obstructive uropathy - place pride. - Arrange urologic follow up - Needs pried on DC VTE prophylaxis: Heparin GI prophylaxis: Pepcid CODE STATUS: Full code Dispo: 2 to 3 days pending improvement
[2020-11-14] MEDS: Fish Oil/Omega-3 Fatty Acids 1 Gm Cap PO SCH (08:32)
[2020-11-14] MEDS: Multivitamin Tab PO SCH (08:33)
[2020-11-14] MEDS: Cetirizine 10 MG Tab PO SCH (08:33)
[2020-11-14] MEDS: Rosuvastatin 10 MG Tab PO SCH (08:33)
[2020-11-14] MEDS: Insulin Aspart 100 Units/ML 3 ML Pen SUBCUT SCH ×3 (08:37→17:40)
[2020-11-14] MEDS: Sertraline 50 MG Tab PO SCH (08:42)
[2020-11-14] MEDS ORDERED: Sodium Chloride 0.9% 500 ML IV SCH (11:45)
[2020-11-14] MEDS ORDERED: Morphine 2 MG/ML SYRINGE IVPUSH PRN (17:44)
[2020-11-14] MEDS ORDERED: Belladonna Alkaloids/Opium 16.2-30 MG Supp RECTAL ONE (17:50)
[2020-11-14] MEDS: LORazepam 1 MG Tab PO PRN (20:44)
[2020-11-14] MEDS: Finasteride 5 MG Tab PO SCH (20:44)
[2020-11-14] MEDS: Famotidine 20 MG Tab PO SCH (20:44)
[2020-11-14] MEDS: Tamsulosin 0.4 MG Cap.ER PO SCH (20:44)
[2020-11-14] MEDS: Insulin Glargine,Human Rec. Analog 100 Units/ML 3 ML Pen SUBCUT SCH (20:45)
[2020-11-15] MEDS: Heparin Sodium 5,000 Units/ML Vial SUBCUT SCH ×3 (00:18→17:02)
[2020-11-15] MEDS: Sodium Chloride 0.9% 1,000 ML IV SCH ×3 (03:53→19:57)
[2020-11-15 06:16] LABS: CARBON DIOXIDE,CO2 22.6 mmol/L (21.0-32.0); POTASSIUM,K 3.8 mmol/L (3.5-5.1)
[2020-11-15] MEDS: Insulin Aspart 100 Units/ML 3 ML Pen SUBCUT SCH ×3 (07:32→19:56)
[2020-11-15] MEDS: Fish Oil/Omega-3 Fatty Acids 1 Gm Cap PO SCH (08:48)
[2020-11-15] MEDS: Sertraline 50 MG Tab PO SCH (08:48)
[2020-11-15] MEDS: Cetirizine 10 MG Tab PO SCH (08:48)
[2020-11-15] MEDS: Multivitamin Tab PO SCH (08:49)
[2020-11-15] MEDS: Rosuvastatin 10 MG Tab PO SCH (08:49)
[2020-11-15] MEDS ORDERED: Non-Formulary Medication 1 Each (Cetirizine Hcl [Zyrtec] 10 MG Capsule) PO SCH (09:00)
[2020-11-15] MEDS: LORazepam 1 MG Tab PO PRN ×2 (10:57→22:21)
--- NOTE | 2020-11-15 11:07 | PCM.PN ---
- General Info Date of Service: 11/15/20 Admission Dx/Problem (Free Text): Admission Diagnosis/Problem Admission Diagnosis/Problem Acute renal failure Subjective Update: Extremely anxious regarding health and recent health issues. Very nervous to go home and is tearful and crying during interviews. Denies any pain, no chest pain or SOB. No other concerns beside anxiety of going home and dealing with health issues without support of family in town. Functional Status: Reports: Pain Controlled, Tolerating Diet, Ambulating - Review of Systems General: Reports: No Symptoms. Denies: Weakness, Fatigue HEENT: Reports: No Symptoms. Denies: Headaches, Sore Throat, Visual Changes Pulmonary: Reports: No Symptoms. Denies: Shortness of Breath Cardiovascular: Reports: No Symptoms. Denies: Chest Pain Gastrointestinal: Denies: Abdominal Pain, Nausea, Vomiting Genitourinary: Reports: No Symptoms Musculoskeletal: Reports: No Symptoms Skin: Reports: No Symptoms Neurological: Reports: No Symptoms Psychiatric: Reports: No Symptoms, Anxiety - Patient Data Vitals - Most Recent: Last Vital Signs Temp 97.0 F 11/15/20 07:32 Pulse 83 11/15/20 07:32 Resp 16 11/15/20 07:32 BP 115/67 11/15/20 07:32 Pulse Ox 96 11/15/20 07:32 Orthostatic Blood Pressure [ 76/41 Standing] Orthostatic Blood Pressure [ 71/45 Sitting] Orthostatic Blood Pressure [ 76/45 Supine] Weight - Most Recent: 93.213 kg I&O - Last 24 Hours: Intake & Output 11/14/20 11/15/20 11/15/20 22:59 06:59 14:59 Intake Total 1940 Output Total 1300 Balance 640 Lab Results Last 24 Hours: Laboratory Results - last 24 hr 11/14/20 11/14/20 11/14/20 Range/Units 11:57 16:09 20:41 WBC (4.0-11.0) K/uL RBC (4.50-5.90) M/uL Hgb (13.0-17.0) g/dL Hct (38.0-50.0) % MCV (80.0-98.0) fL MCH (27.0-32.0) pg MCHC (31.0-37.0) g/dL RDW Std Deviation (28.0-62.0) fl RDW Coeff of Chitra (11.0-15.0) % Plt Count (150-400) K/uL MPV (7.40-12.00) fL Neut % (Auto) (48.0-80.0) % Lymph % (Auto) (16.0-40.0) % Edwards % (Auto) (0.0-15.0) % Eos % (Auto) (0.0-7.0) % Baso % (Auto) (0.0-1.5) % Neut # (Auto) (1.4-5.7) K/uL Lymph # (Auto) (0.6-2.4) K/uL Edwards # (Auto) (0.0-0.8) K/uL Eos # (Auto) (0.0-0.7) K/uL Baso # (Auto) (0.0-0.1) K/uL Nucleated RBC % /100WBC Nucleated RBCs # K/uL Sodium (136-148) mmol/L Potassium (3.5-5.1) mmol/L Chloride (98-107) mmol/L Carbon Dioxide (21.0-32.0) mmol/L BUN (7.0-18.0) mg/dL Creatinine (0.8-1.3) mg/dL Est Cr Clr Drug Dosing mL/min Estimated GFR (MDRD) ml/min Glucose (74-106) mg/dL POC Glucose 135 H 126 H 127 H (70-99) mg/dL Calcium (8.5-10.1) mg/dL 11/15/20 11/15/20 11/15/20 Range/Units 05:16 05:16 06:59 WBC 5.66 (4.0-11.0) K/uL RBC 3.69 L (4.50-5.90) M/uL Hgb 11.8 L (13.0-17.0) g/dL Hct 34.3 L (38.0-50.0) % MCV 93.0 (80.0-98.0) fL MCH 32.0 (27.0-32.0) pg MCHC 34.4 (31.0-37.0) g/dL RDW Std Deviation 44.3 (28.0-62.0) fl RDW Coeff of Chitra 13 (11.0-15.0) % Plt Count 226 (150-400) K/uL MPV 10.40 (7.40-12.00) fL Neut % (Auto) 57.2 (48.0-80.0) % Lymph % (Auto) 30.4 (16.0-40.0) % Edwards % (Auto) 8.0 (0.0-15.0) % Eos % (Auto) 4.2 (0.0-7.0) % Baso % (Auto) 0.2 (0.0-1.5) % Neut # (Auto) 3.2 (1.4-5.7) K/uL Lymph # (Auto) 1.7 (0.6-2.4) K/uL Edwards # (Auto) 0.5 (0.0-0.8) K/uL Eos # (Auto) 0.2 (0.0-0.7) K/uL Baso # (Auto) 0.0 (0.0-0.1) K/uL Nucleated RBC % 0.0 /100WBC Nucleated RBCs # 0 K/uL Sodium 139 (136-148) mmol/L Potassium 3.8 (3.5-5.1) mmol/L Chloride 108 H (98-107) mmol/L Carbon Dioxide 22.6 (21.0-32.0) mmol/L BUN 25 H (7.0-18.0) mg/dL Creatinine 1.7 H (0.8-1.3) mg/dL Est Cr Clr Drug Dosing 42.34 mL/min Estimated GFR (MDRD) 40.2 ml/min Glucose 99 (74-106) mg/dL POC Glucose 94 (70-99) mg/dL Calcium 7.7 L (8.5-10.1) mg/dL Dax Results Last 24 Hours: Microbiology 11/13/20 11:32 Aerobic Blood Culture - Preliminary Blood - Venous - Lab Draw NO GROWTH AFTER 1 DAY Anaerobic Blood Culture - Preliminary NO GROWTH AFTER 1 DAY 11/13/20 11:21 Aerobic Blood Culture - Preliminary Blood - Venous NO GROWTH AFTER 1 DAY Anaerobic Blood Culture - Preliminary NO GROWTH AFTER 1 DAY 11/14/20 07:30 C. difficile Antigen & Toxins A,B - Final Stool / Feces Med Orders - Current: Current Medications Acetaminophen (Acetaminophen 325 Mg Tab) 650 mg PO Q4H PRN PRN Reason: Pain (Mild 1-3)/fever Cetirizine HCl (Cetirizine 10 Mg Tab) 10 mg PO DAILY [facility] Last Admin: 11/15/20 08:48 Dose: 10 mg Documented by: Dextrose/Water (50% Dextrose In Water 50 Ml Syringe) 50 ml IV ASDIRECTED PRN PRN Reason: Hypoglycemia Famotidine (Famotidine 20 Mg Tab) 40 mg PO BEDTIME [facility] Last Admin: 11/14/20 20:44 Dose: 40 mg Documented by: Finasteride (Finasteride 5 Mg Tab) 5 mg PO BEDTIME [facility] Last Admin: 11/14/20 20:44 Dose: 5 mg Documented by: Fish Oil (Fish Oil/Tuthill-3 Fatty Acids 1 Gm Cap) 1 gm PO QAM [facility] Last Admin: 11/15/20 08:48 Dose: 1 gm Documented by: Glucagon (Glucagon,Human Recombinant 1 Mg Vial) 1 mg IM ASDIRECTED PRN PRN Reason: Hypoglycemia Heparin Sodium (Porcine) (Heparin Sodium 5,000 Units/Ml Vial) 5,000 units SUBCUT Q8H [facility] Last Admin: 11/15/20 08:49 Dose: 5,000 units Documented by: Sodium Chloride (Normal Saline) 1,000 mls @ 125 mls/hr IV Q8H [facility] Last Admin: 11/15/20 10:57 Dose: 125 mls/hr Documented by: Insulin Aspart (Insulin Aspart 100 Units/Ml 3 Ml Pen) 0 unit SUBCUT TIDAC [facility]; Protocol Last Admin: 11/15/20 07:32 Dose: Not Given Documented by: Insulin Glargine (Insulin Glargine,Human Rec. Analog 100 Units/Ml 3 Ml Pen) 10 units SUBCUT BEDTIME [facility] Last Admin: 11/14/20 20:45 Dose: 10 units Documented by: Lorazepam (Lorazepam 1 Mg Tab) 1 mg PO Q6H PRN PRN Reason: Anxiety Last Admin: 11/15/20 10:57 Dose: 1 mg Documented by: Morphine Sulfate (Morphine 2 Mg/Ml Syringe) 1 mg IVPUSH Q6HR PRN PRN Reason: Pain Multivitamins/Minerals/Vitamin C (Multivitamin Tab) 1 tab PO DAILY [facility] Last Admin: 11/15/20 08:49 Dose: 1 tab Documented by: Ondansetron HCl (Ondansetron 4 Mg/2 Ml Sdv) 4 mg IVPUSH Q4H PRN PRN Reason: Nausea Rosuvastatin Calcium (Rosuvastatin 10 Mg Tab) 20 mg PO DAILY [facility] Last Admin: 11/15/20 08:49 Dose: 20 mg Documented by: Sertraline HCl (Sertraline 50 Mg Tab) 50 mg PO DAILY [facility] Last Admin: 11/15/20 08:48 Dose: 50 mg Documented by: Sodium Chloride (Sodium Chloride 0.9% 2.5 Ml Syringe) 2.5 ml FLUSH ASDIRECTED PRN PRN Reason: Keep Vein Open Tamsulosin HCl (Tamsulosin 0.4 Mg Cap.Er) 0.8 mg PO BEDTIME [facility] Last Admin: 11/14/20 20:44 Dose: 0.8 mg Documented by: Discontinued Medications Belladonna Alkaloids/Opium (Belladonna Alkaloids/Opium 16.2-30 Mg Supp) 1 supp RECTAL ONETIME ONE Stop: 11/14/20 17:51 Last Admin: 11/14/20 18:19 Dose: 1 supp Documented by: Sodium Chloride (Normal Saline) 1,000 mls @ 999 mls/hr IV .Bolus ONE Stop: 11/13/20 12:17 Last Admin: 11/13/20 11:17 Dose: 999 mls/hr Documented by: Sodium Chloride (Normal Saline) 1,000 mls @ 1,000 mls/hr IV .Bolus ONE Stop: 11/13/20 13:51 Last Admin: 11/13/20 12:56 Dose: 1,000 mls/hr Documented by: Sodium Chloride (Normal Saline) 1,000 mls @ 1,000 mls/hr IV .Bolus ONE Stop: 11/13/20 14:55 Last Admin: 11/13/20 14:21 Dose: 1,000 mls/hr Documented by: Sodium Chloride (Normal Saline) 500 mls @ 999 mls/hr IV .BOLUS [facility] Last Admin: 11/14/20 12:12 Dose: 999 mls/hr Documented by: Insulin Glargine (Insulin Glargine,Human Rec. Analog 100 Units/Ml 3 Ml Pen) 30 units SUBCUT BEDTIME [facility] Last Admin: 11/13/20 22:37 Dose: Not Given Documented by: Lorazepam (Lorazepam 0.5 Mg Tab) 0.5 mg PO BID PRN PRN Reason: Anxiety Last Admin: 11/13/20 21:06 Dose: 0.5 mg Documented by: Sodium Chloride (Sodium Chloride 0.9% 10 Ml Syringe) 10 ml FLUSH ASDIRECTED PRN PRN Reason: Keep Vein Open Last Admin: 11/13/20 11:17 Dose: 10 ml Documented by: Sodium Chloride (Sodium Chloride 0.9% 2.5 Ml Syringe) 2.5 ml FLUSH ASDIRECTED PRN PRN Reason: Keep Vein Open Last Admin: 11/13/20 11:18 Dose: 2.5 ml Documented by: - Exam Urinary Catheter Total Time: 0Days 6Hours General: Alert, Oriented, Cooperative, Moderate Distress (anxiety) Lungs: Clear to Auscultation, Normal Respiratory Effort Cardiovascular: Regular Rate, Regular Rhythm GI/Abdominal Exam: Normal Bowel Sounds, Soft, Non-Tender Extremities: Normal Inspection, Normal Range of Motion, Non-Tender, No Pedal Edema Psy/Mental Status: Anxious (tearful and very anxious ) - Patient Data Lab Results Last 24 hrs: Laboratory Results - last 24 hr 11/14/20 11/14/20 11/14/20 Range/Units 11:57 16:09 20:41 WBC (4.0-11.0) K/uL RBC (4.50-5.90) M/uL Hgb (13.0-17.0) g/dL Hct (38.0-50.0) % MCV (80.0-98.0) fL MCH (27.0-32.0) pg MCHC (31.0-37.0) g/dL RDW Std Deviation (28.0-62.0) fl RDW Coeff of Chitra (11.0-15.0) % Plt Count (150-400) K/uL MPV (7.40-12.00) fL Neut % (Auto) (48.0-80.0) % Lymph % (Auto) (16.0-40.0) % Edwards % (Auto) (0.0-15.0) % Eos % (Auto) (0.0-7.0) % Baso % (Auto) (0.0-1.5) % Neut # (Auto) (1.4-5.7) K/uL Lymph # (Auto) (0.6-2.4) K/uL Edwards # (Auto) (0.0-0.8) K/uL Eos # (Auto) (0.0-0.7) K/uL Baso # (Auto) (0.0-0.1) K/uL Nucleated RBC % /100WBC Nucleated RBCs # K/uL Sodium (136-148) mmol/L Potassium (3.5-5.1) mmol/L Chloride (98-107) mmol/L Carbon Dioxide (21.0-32.0) mmol/L BUN (7.0-18.0) mg/dL Creatinine (0.8-1.3) mg/dL Est Cr Clr Drug Dosing mL/min Estimated GFR (MDRD) ml/min Glucose (74-106) mg/dL POC Glucose 135 H 126 H 127 H (70-99) mg/dL Calcium (8.5-10.1) mg/dL 11/15/20 11/15/20 11/15/20 Range/Units 05:16 05:16 06:59 WBC 5.66 (4.0-11.0) K/uL RBC 3.69 L (4.50-5.90) M/uL Hgb 11.8 L (13.0-17.0) g/dL Hct 34.3 L (38.0-50.0) % MCV 93.0 (80.0-98.0) fL MCH 32.0 (27.0-32.0) pg MCHC 34.4 (31.0-37.0) g/dL RDW Std Deviation 44.3 (28.0-62.0) fl RDW Coeff of Chitra 13 (11.0-15.0) % Plt Count 226 (150-400) K/uL MPV 10.40 (7.40-12.00) fL Neut % (Auto) 57.2 (48.0-80.0) % Lymph % (Auto) 30.4 (16.0-40.0) % Edwards % (Auto) 8.0 (0.0-15.0) % Eos % (Auto) 4.2 (0.0-7.0) % Baso % (Auto) 0.2 (0.0-1.5) % Neut # (Auto) 3.2 (1.4-5.7) K/uL Lymph # (Auto) 1.7 (0.6-2.4) K/uL Edwards # (Auto) 0.5 (0.0-0.8) K/uL Eos # (Auto) 0.2 (0.0-0.7) K/uL Baso # (Auto) 0.0 (0.0-0.1) K/uL Nucleated RBC % 0.0 /100WBC Nucleated RBCs # 0 K/uL Sodium 139 (136-148) mmol/L Potassium 3.8 (3.5-5.1) mmol/L Chloride 108 H (98-107) mmol/L Carbon Dioxide 22.6 (21.0-32.0) mmol/L BUN 25 H (7.0-18.0) mg/dL Creatinine 1.7 H (0.8-1.3) mg/dL Est Cr Clr Drug Dosing 42.34 mL/min Estimated GFR (MDRD) 40.2 ml/min Glucose 99 (74-106) mg/dL POC Glucose 94 (70-99) mg/dL Calcium 7.7 L (8.5-10.1) mg/dL Result Diagrams: 11/15/20 05:16 11/15/20 05:16 Dax Results Last 24 hrs: Microbiology 11/13/20 11:32 Aerobic Blood Culture - Preliminary Blood - Venous - Lab Draw NO GROWTH AFTER 1 DAY Anaerobic Blood Culture - Preliminary NO GROWTH AFTER 1 DAY 11/13/20 11:21 Aerobic Blood Culture - Preliminary Blood - Venous NO GROWTH AFTER 1 DAY Anaerobic Blood Culture - Preliminary NO GROWTH AFTER 1 DAY 11/14/20 07:30 C. difficile Antigen & Toxins A,B - Final Stool / Feces Sepsis Event Note - Evaluation Sepsis Screening Result: No Definite Risk - Focused Exam Vital Signs: Vital Signs Temp Pulse Resp BP Pulse Ox 11/15/20 07:32 97.0 F 83 16 115/67 96 11/15/20 03:56 97.3 F 84 16 132/74 96 11/15/20 00:00 96.7 F L 87 16 125/80 97 - Problem List & Annotations (1) ATN (acute tubular necrosis) SNOMED Code(s): 99504259 Code(s): N17.0 - ACUTE KIDNEY FAILURE WITH TUBULAR NECROSIS Status: Acute Current Visit: Yes (2) Hypertension SNOMED Code(s): 13407126 Code(s): I10 - ESSENTIAL (PRIMARY) HYPERTENSION Status: Acute Current Visit: Yes (3) Hypotension SNOMED Code(s): 00609823 Code(s): I95.9 - HYPOTENSION, UNSPECIFIED Status: Acute Current Visit: Yes (4) DM type 2 (diabetes mellitus, type 2) SNOMED Code(s): 15605522 Code(s): E11.9 - TYPE 2 DIABETES MELLITUS WITHOUT COMPLICATIONS Status: Acute Current Visit: Yes (5) Near syncope SNOMED Code(s): 098243402 Code(s): R55 - SYNCOPE AND COLLAPSE Status: Acute Current Visit: Yes (6) Acute renal failure SNOMED Code(s): 97964455 Code(s): N17.9 - ACUTE KIDNEY FAILURE, UNSPECIFIED Status: Acute Current Visit: Yes (7) Dehydration SNOMED Code(s): 15212986 Code(s): E86.0 - DEHYDRATION Status: Acute Current Visit: No (8) Obstructive uropathy SNOMED Code(s): 7808367 Code(s): N13.9 - OBSTRUCTIVE AND REFLUX UROPATHY, UNSPECIFIED Status: Acute Current Visit: Yes - Problem List Review Problem List Initiated/Reviewed/Updated: Yes - My Orders Last 24 Hours: My Active Orders 11/14/20 21:00 Finasteride [Proscar] 5 mg PO BEDTIME Insulin Glarg,Human.Rec.Analog [LantUS Solostar] 10 units SUBCUT BEDTIME Tamsulosin [Flomax] 0.8 mg PO BEDTIME 11/15/20 10:28 Communications Department Chairperson Discontinue [Cardiac Monitoring Discontinue] [RC] Click to Edit 11/16/20 05:11 BMP [BASIC METABOLIC PANEL,BMP] [CHEM] AM CBC WITH AUTO DIFF [HEME] AM 11/17/20 05:11 BMP [BASIC METABOLIC PANEL,BMP] [CHEM] AM CBC WITH AUTO DIFF [HEME] AM - Plan Plan:: This 89-year-old male admitted with KOJO, ATN secondary to hypotension and dehydration 1. KOJO -Renal function improved overnight, Cr 1.7 today. -Likely component of obstructive uropathy due to BPH - Thomas catheter in place. leaking slighty improved with B&O suppository -Avoid nephrotoxic medications -Strict I's and O's 2. Hypotension -Resolved. -Slowly restart antihypertensives. -continue normal saline 125 mL/h -Monitor on telemetry for arrhythmias. 3. DM type II -Hold Metformin -NovoLog sliding scale insulin 3 times daily AC - Lantus 10 uni 4. Hypertension -Slowly restart antihypertensives. Continue to hold Amlodipine and Lisinopril/HCTZ 5. BPH -Continue Proscar and Flomax -Obstructive uropathy - Thomas catheter. - Arrange urologic follow up 6. Anxiety - Extremely anxious regarding health concerns. Overexaggerating minute concerns and previous illness. - Continue Ativan PRN for now, will discuss senior care medications such as sertraline with Nii later today after he calms down. -Consult pastoral care,case management to talk with him. VTE prophylaxis: Heparin GI prophylaxis: Pepcid CODE STATUS: Full code Dispo: 2 to 3 days pending improvement
[2020-11-15] MEDS: Insulin Glargine,Human Rec. Analog 100 Units/ML 3 ML Pen SUBCUT SCH (22:13)
[2020-11-15] MEDS: Finasteride 5 MG Tab PO SCH (22:15)
[2020-11-15] MEDS: Famotidine 20 MG Tab PO SCH (22:15)
[2020-11-15] MEDS: Tamsulosin 0.4 MG Cap.ER PO SCH (22:15)
[2020-11-16] MEDS: Heparin Sodium 5,000 Units/ML Vial SUBCUT SCH ×2 (01:30→09:05)
[2020-11-16] MEDS: Sodium Chloride 0.9% 1,000 ML IV SCH (03:00)
[2020-11-16 05:55] LABS: CARBON DIOXIDE,CO2 21.6 mmol/L (21.0-32.0); POTASSIUM,K 3.9 mmol/L (3.5-5.1)
[2020-11-16] MEDS: Insulin Aspart 100 Units/ML 3 ML Pen SUBCUT SCH ×2 (07:33→12:14)
[2020-11-16] MEDS: Fish Oil/Omega-3 Fatty Acids 1 Gm Cap PO SCH (09:04)
[2020-11-16] MEDS: Multivitamin Tab PO SCH (09:04)
[2020-11-16] MEDS: Cetirizine 10 MG Tab PO SCH (09:05)
[2020-11-16] MEDS: Sertraline 50 MG Tab PO SCH (09:05)
[2020-11-16] MEDS: Rosuvastatin 10 MG Tab PO SCH (09:05)
--- NOTE | 2020-11-16 10:10 | PCM.DCSUM1 ---
Discharge Summary - Hospital Course Brief History: This 70-year-old male with past medical history of BPH, hypertension, diabetes type 2 presented to the ER today after he was found to be near syncope and orthostatic in Dr. Venegas general surgery's office. He reports that he has not been feeling well for the past couple weeks. He reports last week he did go to the walk-in clinic and was told he had vertigo and given meclizine along with nasal spray and allergy medication. He reports at that visit they struggled obtaining a blood pressure. He reports looking back at his blood pressure logs blood pressures have been intermittently low with 70 systolic for the past week and a half. He reports his symptoms of nausea vomiting and generally not feeling well started September 28 when he was diagnosed with diverticulitis. He was sent home on medication likely fluoroquinolone and Flagyl he reports this medication really upset his stomach and felt very nauseated he was then transition to Augmentin which he just finished his last dose last evening. He reports he is no longer having abdominal pain but continues to not be able to eat well and having significant nausea. He reports he has been urinating about the same and has been drinking as much water as he can but he knows it is likely not with he needs. He reports that he is having diarrhea noting he had 2 incontinent stools yesterday and reports that he has sudden urge to have bowel movement and sometimes it is just passing gas and other times it is loose watery stool. He denies any chest pain no shortness of breath. No abdominal pain. No flank pain no history of any renal stones. He reports that he was told he has a large prostate he denies any fevers or chills. Again he denies any trouble urinating. He denies any history of tobacco use no recreational drug use and rare social alcohol use. In the ER no leukocytosis noted hemoglobin 14.2 hematocrit 41.2 platelets 262,000. Sodium 136 potassium 4.6 bicarb 23.5 BUN 65 creatinine 6.7 glucose 160 AST ALT and alk phos all within normal limits. Troponin negative TSH 0.67 lipase 123. Urine obtained which is negative for UTI. Scarlet calculated appears to be ATN likely started as prerenal and secondary to dehydration and hypotension. CT of abdomen and pelvis were obtained to rule out infectious or obstructive uropathy. Resolution of diverticulitis of the colon noted compared to prior imaging. No kidney stones or obstructive uropathy noted. Massive stable enlargement of prostate gland noted. Patient voiding in the ER and is able to easily provide sample. C. difficile ordered as patient had multiple stools at home prior to arriving. Chest x-ray obtained which has no acute cardiopulmonary findings. Patient was treated with 3 L IV fluids blood pressure improved from systolic 70s to 106/65. Maps remain above 65 currently. Respiratory rate 20s oxygen saturation 98 heart rate 82. EKG shows right bundle branch block which appears to be stable from previous EKGs on file. Patient will be admitted inpatient for acute renal failure likely prerenal now ATN secondary to dehydration and hypotension. - Discharge Data Discharge Date: 11/16/20 Discharge Disposition: Home, Self-Care 01 Condition: Stable - Referral to Home Health Primary Care Physician: Wei Page MD - Discharge Diagnosis/Problem(s) (1) ATN (acute tubular necrosis) SNOMED Code(s): 77223725 ICD Code: N17.0 - ACUTE KIDNEY FAILURE WITH TUBULAR NECROSIS Status: Acute (2) Hypertension SNOMED Code(s): 27401572 ICD Code: I10 - ESSENTIAL (PRIMARY) HYPERTENSION Status: Acute (3) Hypotension SNOMED Code(s): 35938210 ICD Code: I95.9 - HYPOTENSION, UNSPECIFIED Status: Acute (4) DM type 2 (diabetes mellitus, type 2) SNOMED Code(s): 08608068 ICD Code: E11.9 - TYPE 2 DIABETES MELLITUS WITHOUT COMPLICATIONS Status: Acute (5) Near syncope SNOMED Code(s): 500616017 ICD Code: R55 - SYNCOPE AND COLLAPSE Status: Acute (6) Acute renal failure SNOMED Code(s): 01852982 ICD Code: N17.9 - ACUTE KIDNEY FAILURE, UNSPECIFIED Status: Acute (7) Dehydration SNOMED Code(s): 99468974 ICD Code: E86.0 - DEHYDRATION Status: Acute (8) Obstructive uropathy SNOMED Code(s): 7895776 ICD Code: N13.9 - OBSTRUCTIVE AND REFLUX UROPATHY, UNSPECIFIED Status: Acute - Patient Summary/Data Hospital Course: Admission diagnoses KOJO, ATN Hypotension Possible obstructive uropathy Discharge diagnoses KOJO from ATN resolved Hypotension resolved Obstructive uropathy Thomas in place Other PMH Diabetes type 2 Hypertension BPH Anxiety Nii was admitted secondary to KOJO which turned to ATN which is likely multifactorial. Patient had previously been treated for diverticulitis with 2 rounds of antibiotics. Patient reported diet was fairly poor not eating or drinking much due to not feeling well. Patient reported he was having some diarrhea at home along with poor appetite. Patient stools tested and negative for C. difficile. Patient BUN/creatinine significantly elevated BUN 65 and creatinine 6.9 on admission. No acidosis and urea or hyperkalemia noted so no indication for dialysis was needed at that time. Patient was treated with IV fluids and urinating was monitored very closely due to significant size of prostate. Patient had reported he had been voiding well at home but typically in smaller amounts which is his normal. Bladder scanning revealed postvoid residuals of 506 100 mL. For catheter was placed in the following day creatinine decreased by half. BUN was then 45 creatinine 3.2. IV fluids were continued as well as Thomas catheter. All blood pressure medications were on hold finasteride and Flomax were restarted. Patient continues to improve steadily and today BUN and creatinine are back to normal. Patient was going to be discharged yesterday 11/15/2020 patient had significant amount of anxiety regarding overall health and the fears that his diverticulitis and kidney injury would return. Patient was kept overnight continued his as needed Ativan and daily Zoloft. Today he continues to be anxious but is more calm. He was given resources for help within the community as he is single and lives alone. He was counseled on Thomas catheter which he feels comfortable with as he has had this in the past. He was scheduled with urologist in [place] as urologist currently is not seeing any further patients as notified by his clinic. Patient requested [place] and appointment was arranged December [address] Neely, urologist for further intervention for BPH and obstructive uropathy. Patient will be discharged home today he is to hold Metformin, lisinopril hydrochlorothiazide and amlodipine. He is to monitor his blood pressures and keep a log for primary care as he will likely need to restart 1 or both medications in the future. Metformin to be held currently due to recent KOJO this may also be restarted as needed. Lab work to be obtained with PCP to help monitor kidney function at follow-up appointment. Patient counseled on eating drinking appropriately. He is to return to the ER or clinic if concerns should arise with health or Thomas catheter. He verbalized understanding. - Patient Instructions Diet: Heart Healthy Diet, Drink 8-10+ Glasses/Day, Diabetic Diet Activity: Rest and Relax Today Showering/Bathing: May Shower Notify Provider of: Fever, Increased Pain, Swelling and Redness, Drainage, Nausea and/or Vomiting Other/Special Instructions: Thomas catheter cares at home. Hold Amlodipine, Lisinopril/HCTZ, and Metformin until restarted by PCP, Dr Page. New sliding scale for blood sugars with meals. Glucose under 150. Glucose 150 - 199 1 unit. Glucose 105934 2 units. Glucose 458084 3 units. Glucose 756118 4 units. Glucose 350-400 5 units. Glucose 400 and over 6 units - Discharge Plan *PRESCRIPTION DRUG MONITORING PROGRAM REVIEWED*: Not Applicable *COPY OF PRESCRIPTION DRUG MONITORING REPORT IN PATIENT ERNESTO: Not Applicable Home Medications: Home Meds Ascorbic Acid/Bioflavonoids [Vit C-Bioflavonoids SA] 1,000 mg PO QAM 06/25/14 [History] Aspirin [[place] Chewable Aspirin] 81 mg PO QAM 06/25/14 [History] Fenofibrate Nanocrystallized [Fenofibrate] 145 mg PO BEDTIME 06/25/14 [History] Fish Oil/[place]-3 Fatty Acids [Fish Oil] 1,200 mg PO QAM 06/25/14 [History] metFORMIN [Glucophage] 1,000 mg PO BID 06/25/14 [History] Multivitamin [Multivitamins] 1 tab PO DAILY 06/18/16 [History] Rosuvastatin Calcium 20 mg PO DAILY 06/18/16 [History] Finasteride [Proscar] 5 mg PO DAILY 09/28/20 [History] Insulin Lispro [Humalog] 0 unit SUBCUT TIDMEALS MDD 30 UNITS PER MEAL 09/28/20 [History] Tamsulosin HCl [Flomax] 0.8 mg PO BEDTIME 09/28/20 [History] Sertraline [Zoloft] 50 mg PO DAILY 11/02/20 [History] traMADol [Ultram] 50 mg PO Q6H PRN #12 tab 11/03/20 [Rx] Famotidine 40 mg PO BEDTIME #14 tablet 11/06/20 [Rx] Cetirizine HCl [Zyrtec] 10 mg PO DAILY 11/13/20 [History] LORazepam [Ativan] 0.5 - 1 mg PO BID PRN 11/13/20 [History] Meclizine [Antivert] 25 mg PO Q8H PRN 11/13/20 [History] Ondansetron [Zofran ODT] 4 mg SL Q6H PRN 11/13/20 [History] Ondansetron [Zofran ODT] 8 mg SL DAILY PRN 11/13/20 [History] Acetaminophen [Tylenol] 650 mg PO Q4H PRN tablet 11/16/20 [Rx] Insulin Glarg,Human.Rec.Analog [Lantus] 10 units INJECT BEDTIME #0 11/16/20 [Rx] Lisinopril/Hydrochlorothiazide [Lisinopril-Hctz 20-12.5 mg Tab] 1 tab PO DAILY #0 11/16/20 [Rx] Oxygen Therapy Mode: Room Air Patient Handouts: Acute Kidney Injury, Adult, Indwelling Urinary Catheter Care, Adult, Acute Urinary Retention, Male Referrals: Kervin Neely MD [Ordering Only Provider] - 12/15/20 3:30 pm Wei Page MD [Primary Care Provider] - 11/22/20 8:30 am - Discharge Summary/Plan Comment DC Time >30 min.: No - Patient Data Vitals - Most Recent: Last Vital Signs Temp 96.8 F L 11/16/20 06:59 Pulse 84 11/16/20 06:59 Resp 20 11/16/20 06:59 BP 130/75 11/16/20 06:59 Pulse Ox 93 L 11/16/20 06:59 Orthostatic Blood Pressure [ 76/41 Standing] Orthostatic Blood Pressure [ 71/45 Sitting] Orthostatic Blood Pressure [ 76/45 Supine] Weight - Most Recent: 93.213 kg I&O - Last 24 hours: Intake & Output 11/15/20 11/16/20 11/16/20 22:59 06:59 14:59 Intake Total 2360 1500 Output Total 1600 2000 Balance 760 -500 @ Lab Results - Last 24 hrs: Laboratory Results - last 24 hr 11/15/20 11/15/20 11/15/20 Range/Units 12:04 17:34 22:12 WBC (4.0-11.0) K/uL RBC (4.50-5.90) M/uL Hgb (13.0-17.0) g/dL Hct (38.0-50.0) % MCV (80.0-98.0) fL MCH (27.0-32.0) pg MCHC (31.0-37.0) g/dL RDW Std Deviation (28.0-62.0) fl RDW Coeff of Chitra (11.0-15.0) % Plt Count (150-400) K/uL MPV (7.40-12.00) fL Neut % (Auto) (48.0-80.0) % Lymph % (Auto) (16.0-40.0) % Cowley % (Auto) (0.0-15.0) % Eos % (Auto) (0.0-7.0) % Baso % (Auto) (0.0-1.5) % Neut # (Auto) (1.4-5.7) K/uL Lymph # (Auto) (0.6-2.4) K/uL Cowley # (Auto) (0.0-0.8) K/uL Eos # (Auto) (0.0-0.7) K/uL Baso # (Auto) (0.0-0.1) K/uL Nucleated RBC % /100WBC Nucleated RBCs # K/uL Sodium (136-148) mmol/L Potassium (3.5-5.1) mmol/L Chloride (98-107) mmol/L Carbon Dioxide (21.0-32.0) mmol/L BUN (7.0-18.0) mg/dL Creatinine (0.8-1.3) mg/dL Est Cr Clr Drug Dosing mL/min Estimated GFR (MDRD) ml/min Glucose (74-106) mg/dL POC Glucose 132 H 117 H 127 H (70-99) mg/dL Calcium (8.5-10.1) mg/dL 11/16/20 11/16/20 11/16/20 Range/Units 04:48 04:48 06:45 WBC 6.19 (4.0-11.0) K/uL RBC 3.77 L (4.50-5.90) M/uL Hgb 12.0 L (13.0-17.0) g/dL Hct 35.2 L (38.0-50.0) % MCV 93.4 (80.0-98.0) fL MCH 31.8 (27.0-32.0) pg MCHC 34.1 (31.0-37.0) g/dL RDW Std Deviation 45.3 (28.0-62.0) fl RDW Coeff of Chitra 13 (11.0-15.0) % Plt Count 225 (150-400) K/uL MPV 10.40 (7.40-12.00) fL Neut % (Auto) 50.4 (48.0-80.0) % Lymph % (Auto) 34.9 (16.0-40.0) % Cowley % (Auto) 8.1 (0.0-15.0) % Eos % (Auto) 6.1 (0.0-7.0) % Baso % (Auto) 0.5 (0.0-1.5) % Neut # (Auto) 3.1 (1.4-5.7) K/uL Lymph # (Auto) 2.2 (0.6-2.4) K/uL Cowley # (Auto) 0.5 (0.0-0.8) K/uL Eos # (Auto) 0.4 (0.0-0.7) K/uL Baso # (Auto) 0.0 (0.0-0.1) K/uL Nucleated RBC % 0.0 /100WBC Nucleated RBCs # 0 K/uL Sodium 138 (136-148) mmol/L Potassium 3.9 (3.5-5.1) mmol/L Chloride 109 H (98-107) mmol/L Carbon Dioxide 21.6 (21.0-32.0) mmol/L BUN 17 (7.0-18.0) mg/dL Creatinine 1.3 (0.8-1.3) mg/dL Est Cr Clr Drug Dosing 55.37 mL/min Estimated GFR (MDRD) 54.7 ml/min Glucose 93 (74-106) mg/dL POC Glucose 91 (70-99) mg/dL Calcium 7.5 L (8.5-10.1) mg/dL LOUIE Results - Last 24 hrs: Microbiology 11/13/20 11:32 Aerobic Blood Culture - Preliminary Blood - Venous - Lab Draw NO GROWTH AFTER 2 DAYS Anaerobic Blood Culture - Preliminary NO GROWTH AFTER 2 DAYS 11/13/20 11:21 Aerobic Blood Culture - Preliminary Blood - Venous NO GROWTH AFTER 2 DAYS Anaerobic Blood Culture - Preliminary NO GROWTH AFTER 2 DAYS Med Orders - Current: Current Medications Acetaminophen (Acetaminophen 325 Mg Tab) 650 mg PO Q4H PRN PRN Reason: Pain (Mild 1-3)/fever Cetirizine HCl (Cetirizine 10 Mg Tab) 10 mg PO DAILY [facility] Last Admin: 11/16/20 09:05 Dose: 10 mg Documented by: Dextrose/Water (50% Dextrose In Water 50 Ml Syringe) 50 ml IV ASDIRECTED PRN PRN Reason: Hypoglycemia Famotidine (Famotidine 20 Mg Tab) 40 mg PO BEDTIME [facility] Last Admin: 11/15/20 22:15 Dose: 40 mg Documented by: Finasteride (Finasteride 5 Mg Tab) 5 mg PO BEDTIME [facility] Last Admin: 11/15/20 22:15 Dose: 5 mg Documented by: Fish Oil (Fish Oil/[place]-3 Fatty Acids 1 Gm Cap) 1 gm PO QAM [facility] Last Admin: 11/16/20 09:04 Dose: 1 gm Documented by: Glucagon (Glucagon,Human Recombinant 1 Mg Vial) 1 mg IM ASDIRECTED PRN PRN Reason: Hypoglycemia Heparin Sodium (Porcine) (Heparin Sodium 5,000 Units/Ml Vial) 5,000 units SUBCUT Q8H [facility] Last Admin: 11/16/20 09:05 Dose: 5,000 units Documented by: Sodium Chloride (Normal Saline) 1,000 mls @ 125 mls/hr IV Q8H [facility] Last Admin: 11/16/20 03:00 Dose: 125 mls/hr Documented by: Insulin Aspart (Insulin Aspart 100 Units/Ml 3 Ml Pen) 0 unit SUBCUT TIDAC [facility]; Protocol Last Admin: 11/16/20 07:33 Dose: Not Given Documented by: Insulin Glargine (Insulin Glargine,Human Rec. Analog 100 Units/Ml 3 Ml Pen) 10 units SUBCUT BEDTIME [facility] Last Admin: 11/15/20 22:13 Dose: 10 units Documented by: Lorazepam (Lorazepam 1 Mg Tab) 1 mg PO Q6H PRN PRN Reason: Anxiety Last Admin: 11/15/20 22:21 Dose: 1 mg Documented by: Morphine Sulfate (Morphine 2 Mg/Ml Syringe) 1 mg IVPUSH Q6HR PRN PRN Reason: Pain Multivitamins/Minerals/Vitamin C (Multivitamin Tab) 1 tab PO DAILY [facility] Last Admin: 11/16/20 09:04 Dose: 1 tab Documented by: Ondansetron HCl (Ondansetron 4 Mg/2 Ml Sdv) 4 mg IVPUSH Q4H PRN PRN Reason: Nausea Rosuvastatin Calcium (Rosuvastatin 10 Mg Tab) 20 mg PO DAILY [facility] Last Admin: 11/16/20 09:05 Dose: 20 mg Documented by: Sertraline HCl (Sertraline 50 Mg Tab) 50 mg PO DAILY [facility] Last Admin: 11/16/20 09:05 Dose: 50 mg Documented by: Sodium Chloride (Sodium Chloride 0.9% 2.5 Ml Syringe) 2.5 ml FLUSH ASDIRECTED PRN PRN Reason: Keep Vein Open Tamsulosin HCl (Tamsulosin 0.4 Mg Cap.Er) 0.8 mg PO BEDTIME [facility] Last Admin: 11/15/20 22:15 Dose: 0.8 mg Documented by: Discontinued Medications Belladonna Alkaloids/Opium (Belladonna Alkaloids/Opium 16.2-30 Mg Supp) 1 supp RECTAL ONETIME ONE Stop: 11/14/20 17:51 Last Admin: 11/14/20 18:19 Dose: 1 supp Documented by: Sodium Chloride (Normal Saline) 1,000 mls @ 999 mls/hr IV .Bolus ONE Stop: 11/13/20 12:17 Last Admin: 11/13/20 11:17 Dose: 999 mls/hr Documented by: Sodium Chloride (Normal Saline) 1,000 mls @ 1,000 mls/hr IV .Bolus ONE Stop: 11/13/20 13:51 Last Admin: 11/13/20 12:56 Dose: 1,000 mls/hr Documented by: Sodium Chloride (Normal Saline) 1,000 mls @ 1,000 mls/hr IV .Bolus ONE Stop: 11/13/20 14:55 Last Admin: 11/13/20 14:21 Dose: 1,000 mls/hr Documented by: Sodium Chloride (Normal Saline) 500 mls @ 999 mls/hr IV .BOLUS [facility] Last Admin: 11/14/20 12:12 Dose: 999 mls/hr Documented by: Insulin Glargine (Insulin Glargine,Human Rec. Analog 100 Units/Ml 3 Ml Pen) 30 units SUBCUT BEDTIME [facility] Last Admin: 11/13/20 22:37 Dose: Not Given Documented by: Lorazepam (Lorazepam 0.5 Mg Tab) 0.5 mg PO BID PRN PRN Reason: Anxiety Last Admin: 11/13/20 21:06 Dose: 0.5 mg Documented by: Sodium Chloride (Sodium Chloride 0.9% 10 Ml Syringe) 10 ml FLUSH ASDIRECTED PRN PRN Reason: Keep Vein Open Last Admin: 11/13/20 11:17 Dose: 10 ml Documented by: Sodium Chloride (Sodium Chloride 0.9% 2.5 Ml Syringe) 2.5 ml FLUSH ASDIRECTED PRN PRN Reason: Keep Vein Open Last Admin: 11/13/20 11:18 Dose: 2.5 ml Documented by:
[2020-11-16 11:47] VITALS: BP 130/76; PULSE 74
== END 2020-11-16 12:51 | disposition home or self-care (01) | DRG 314 ==
LOC: MW.ED 10:57 → MW.MS 15:52
PROVIDERS: ADMIT Student in an Organized Health Care Education/Training Program; ATTEND Student in an Organized Health Care Education/Training Program
DX: I95.9 Hypotension, unspecified (principal); N17.0 Acute kidney failure with tubular necrosis; E86.9 Volume depletion, unspecified; N13.8 Other obstructive and reflux uropathy; E86.0 Dehydration; I10 Essential (primary) hypertension; N13.9 Obstructive and reflux uropathy, unspecified; E78.00 Pure hypercholesterolemia, unspecified; Z20.822 Contact with and (suspected) exposure to COVID-19; M54.9 Dorsalgia, unspecified; G89.29 Other chronic pain; E66.9 Obesity, unspecified; E11.9 Type 2 diabetes mellitus without complications; H54.7 Unspecified visual loss; F41.9 Anxiety disorder, unspecified; T46.5X5A Adverse effect of other antihypertensive drugs, initial encounter; G47.30 Sleep apnea, unspecified; N40.1 Benign prostatic hyperplasia with lower urinary tract symptoms; Z91.040 Latex allergy status; Z88.1 Allergy status to other antibiotic agents; Z88.8 Allergy status to other drugs, medicaments and biological substances; Z79.82 Long term (current) use of aspirin; Z79.4 Long term (current) use of insulin; Z79.899 Other long term (current) drug therapy; Z98.49 Cataract extraction status, unspecified eye
CPT/HCPCS: 36415; 71045; 74176; 80048; 80053; 81001; 82570; 83605; 83690; 83735; 84300; 84443; 84484; 85025; 87040 ×2; 93005; 99285; J7030 ×3; U0002; 51701; 51702; 51798; 82947; 87324; 93010; 99284; A9270-GY; J1644; J1815-GY; J7040

== ENCOUNTER 2020-11-18 13:21 | Emergency (ER) | payer MEDICARE, OTHER ==
--- NOTE | 2020-11-18 14:13 | EDM.PDOC ---
ED HPI GENERAL MEDICAL PROBLEM - General Chief Complaint: Genitourinary Problem Stated Complaint: KIDNEY PROBLEMS Time Seen by Provider: 11/18/20 13:23 Source of Information: Reports: Patient History Limitations: Reports: No Limitations - History of Present Illness INITIAL COMMENTS - FREE TEXT/NARRATIVE: 70-year-old male past medical history hypertension, type 2 diabetes, benign prostatic hypertrophy, anxiety, recent admission for [facility] presents for leaking Thomas catheter and dizziness. Patient states that he had been doing well until last night when he began to feel dizziness reminiscent of just before his last admission to the hospital a week ago. This morning he had an episode of emesis but after that has not had any nausea and denies any abdominal pain. He notes that his Thomas catheter is leaking and that it has been leaking since discharge from the hospital a couple of days ago but seems to be worse today. He was initially coming to the ER for the leaking Thomas catheter but noted while he was in the waiting room that he started to feel dizzy, short of breath. He does endorse a history of anxiety. - Related Data Allergies Allergy/AdvReac Type Severity Reaction Status Date / Time atorvastatin calcium Allergy Hives Verified 11/18/20 14:06 [From Lipitor] cefazolin sodium [From Ancef] Allergy Hives Verified 11/18/20 14:06 latex Allergy Rash Verified 11/18/20 14:06 Home Meds: Home Meds Ascorbic Acid/Bioflavonoids [Vit C-Bioflavonoids SA] 1,000 mg PO QAM 06/25/14 [H istory] Aspirin [[place] Chewable Aspirin] 81 mg PO QAM 06/25/14 [History] Fenofibrate Nanocrystallized [Fenofibrate] 145 mg PO BEDTIME 06/25/14 [History] Fish Oil/[place]-3 Fatty Acids [Fish Oil] 1,200 mg PO QAM 06/25/14 [History] metFORMIN [Glucophage] 1,000 mg PO BID 06/25/14 [History] Multivitamin [Multivitamins] 1 tab PO DAILY 06/18/16 [History] Rosuvastatin Calcium 20 mg PO DAILY 06/18/16 [History] Finasteride [Proscar] 5 mg PO DAILY 09/28/20 [History] Insulin Lispro [Humalog] 0 unit SUBCUT TIDMEALS MDD 30 UNITS PER MEAL 09/28/20 [History] Tamsulosin HCl [Flomax] 0.8 mg PO BEDTIME 09/28/20 [History] Sertraline [Zoloft] 50 mg PO DAILY 11/02/20 [History] LORazepam [Ativan] 0.5 - 1 mg PO BID PRN 11/13/20 [History] Ondansetron [Zofran ODT] 4 mg SL Q6H PRN 11/13/20 [History] Ondansetron [Zofran ODT] 8 mg SL DAILY PRN 11/13/20 [History] Insulin Glarg,Human.Rec.Analog [Lantus] 10 units INJECT BEDTIME #0 11/16/20 [Rx] Lisinopril/Hydrochlorothiazide [Lisinopril-Hctz 20-12.5 mg Tab] 1 tab PO DAILY #0 11/16/20 [Rx] Past Medical History HEENT History: Reports: Impaired Vision Other HEENT History: wears glasses Cardiovascular History: Reports: High Cholesterol, Hypertension Respiratory History: Reports: Sleep Apnea Other Respiratory History: uses BPAP Gastrointestinal History: Reports: None Genitourinary History: Reports: None Musculoskeletal History: Reports: Back Pain, Chronic Neurological History: Reports: None Psychiatric History: Reports: Anxiety Endocrine/Metabolic History: Reports: Diabetes, Type II, Obesity/BMI 30+ 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 Pump 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 Hematologic History: Reports: Blood Transfusion(s) Other Hematologic History: blood transfusion following nose bleed at 10 yrs old Immunologic History: Reports: None Oncologic (Cancer) History: Reports: None Dermatologic History: Reports: None - Infectious Disease History Infectious Disease History: Reports: Chicken Pox, Measles - Past Surgical History Head Surgeries/Procedures: Reports: None HEENT Surgical History: Reports: Cataract Surgery, Tonsillectomy Cardiovascular Surgical History: Reports: None Respiratory Surgical History: Reports: None GI Surgical History: Reports: None Male Surgical History: Reports: None Musculoskeletal Surgical History: Reports: Arthroscopic Knee Social & Family History - Family History Family Medical History: No Pertinent Family History - Caffeine Use Caffeine Use: Reports: Coffee ED ROS GENERAL - Review of Systems Review Of Systems: Comprehensive ROS is negative, except as noted in HPI. ED EXAM, GENERAL - Physical Exam Exam: See Below Exam Limited By: No Limitations General Appearance: Alert, WD/WN, No Apparent Distress Throat/Mouth: Normal Voice, No Airway Compromise Head: Atraumatic, Normocephalic Neck: Normal Inspection Respiratory/Chest: No Respiratory Distress, Lungs Clear, Normal Breath Sounds, No Accessory Muscle Use, Other (tachypnea) Cardiovascular: Normal Peripheral Pulses, Regular Rate, Rhythm, No Edema GI/Abdominal: Soft, Non-Tender Extremities: Normal Inspection Neurological: Alert Psychiatric: Normal Affect, Normal Mood Skin Exam: Warm, Dry, Intact, Normal Color #1 Interpretation EKG Date: 11/18/20 Time: 14:06 Rhythm: NSR Rate (Beats/Min): 64 [place]: Normal P-Wave: Present QRS: Normal ST-T: Normal QT: Normal NE/PQ Interval: 154 Comparison: No Change EKG Interpretation Comments: RBBB, no significant change from prior Course - Vital Signs Last Recorded V/S: Last Vital Signs Temp 97.6 F 11/18/20 14:07 Pulse 85 11/18/20 14:07 Resp 17 11/18/20 14:07 BP 110/71 11/18/20 14:07 Pulse Ox 98 11/18/20 14:07 - Orders/Labs/Meds Orders: Active Orders 24 hr Category Date Time Status Magnesium Sulfate/Water [Magnesium Sulfate in Water 2 Med 11/18/20 15:13 Active GM/50 ML] 2 gm Premix Bag 1 bag IV ONETIME Sodium Chloride 0.9% [Saline Flush] Med 11/18/20 14:16 Active 10 ml FLUSH ASDIRECTED PRN Sodium Chloride 0.9% [Saline Flush] Med 11/18/20 14:16 Active 2.5 ml FLUSH ASDIRECTED PRN Saline Lock Insert [OM.PC] Stat Oth 11/18/20 14:16 Ordered Medication Orders Magnesium Sulfate 2 gm/ Premix 50 mls @ 50 mls/hr IV ONETIME ONE Stop: 11/18/20 16:12 Sodium Chloride (Sodium Chloride 0.9% 10 Ml Syringe) 10 ml FLUSH ASDIRECTED PRN PRN Reason: Keep Vein Open Last Admin: 11/18/20 14:38 Dose: 10 ml Documented by: TIGIST Sodium Chloride (Sodium Chloride 0.9% 2.5 Ml Syringe) 2.5 ml FLUSH ASDIRECTED PRN PRN Reason: Keep Vein Open Last Admin: 11/18/20 14:39 Dose: 2.5 ml Documented by: TIGIST Labs: Laboratory Tests 11/18/20 11/18/20 11/18/20 Range/Units 14:22 14:22 14:22 WBC 7.51 (4.0-11.0) K/uL RBC 4.16 L (4.50-5.90) M/uL Hgb 13.4 (13.0-17.0) g/dL Hct 37.6 L (38.0-50.0) % MCV 90.4 (80.0-98.0) fL MCH 32.2 H (27.0-32.0) pg MCHC 35.6 (31.0-37.0) g/dL RDW Std Deviation 43.2 (28.0-62.0) fl RDW Coeff of Chitra 13 (11.0-15.0) % Plt Count 255 (150-400) K/uL MPV 10.40 (7.40-12.00) fL Neut % (Auto) 72.0 (48.0-80.0) % Lymph % (Auto) 20.0 (16.0-40.0) % [place] % (Auto) 6.4 (0.0-15.0) % Eos % (Auto) 1.5 (0.0-7.0) % Baso % (Auto) 0.1 (0.0-1.5) % Neut # (Auto) 5.4 (1.4-5.7) K/uL Lymph # (Auto) 1.5 (0.6-2.4) K/uL Sutter # (Auto) 0.5 (0.0-0.8) K/uL Eos # (Auto) 0.1 (0.0-0.7) K/uL Baso # (Auto) 0.0 (0.0-0.1) K/uL Nucleated RBC % 0.0 /100WBC Nucleated RBCs # 0 K/uL Sodium 138 (136-148) mmol/L Potassium 3.6 (3.5-5.1) mmol/L Chloride 104 (98-107) mmol/L Carbon Dioxide 18.0 L (21.0-32.0) mmol/L BUN 11 (7.0-18.0) mg/dL Creatinine 1.1 (0.8-1.3) mg/dL Est Cr Clr Drug Dosing 65.44 mL/min Estimated GFR (MDRD) > 60.0 ml/min Glucose 130 H (74-106) mg/dL Lactic Acid 1.6 (0.4-2.0) mmol/L Calcium 9.5 (8.5-10.1) mg/dL Magnesium 1.4 L (1.8-2.4) mg/dL Total Bilirubin 0.6 (0.2-1.0) mg/dL AST 18 (15-37) IU/L ALT 24 (14-63) IU/L Alkaline Phosphatase 37 L (46-116) U/L Troponin I < 0.050 (0.000-0.056) ng/mL Total Protein 6.9 (6.4-8.2) g/dL Albumin 3.4 (3.4-5.0) g/dL Globulin 3.5 (2.6-4.0) g/dL Albumin/Globulin Ratio 1.0 (0.9-1.6) Meds: Medications Generic Name Dose Route Start Last Admin Trade Name Freq PRN Reason Stop Dose Admin Magnesium Sulfate 2 gm/ Premix 50 mls @ 50 mls/hr 11/18/20 15:13 IV 11/18/20 16:12 ONETIME ONE Sodium Chloride 10 ml 11/18/20 14:16 11/18/20 14:38 Sodium Chloride 0.9% 10 Ml Syringe FLUSH 10 ml ASDIRECTED PRN Administration Keep Vein Open Sodium Chloride 2.5 ml 11/18/20 14:16 11/18/20 14:39 Sodium Chloride 0.9% 2.5 Ml Syringe FLUSH 2.5 ml ASDIRECTED PRN Administration Keep Vein Open Discontinued Medications Generic Name Dose Route Start Last Admin Trade Name Freq PRN Reason Stop Dose Admin Lorazepam 1 mg 11/18/20 14:17 11/18/20 14:38 Lorazepam 2 Mg/Ml Sdv IVPUSH 11/18/20 14:18 1 mg ONETIME ONE Administration - Re-Assessments/Exams Free Text/Narrative Re-Assessment/Exam: 11/18/20 15:14 Labs remarkable for hypomagnesemia; replacement ordered. Kidney function today is good. I did speak with hospitalist as she was in the ER and patient was recently admitted. No indication for admission today. 11/18/20 15:30 CXR is unremarkable. Thomas catheter is working appropriate although leaking some with straining. Will place patient on our urology f/u list for hopefully sooner appointment than end of November. Will d/c with return precautions. Departure - Departure Time of Disposition: 15:33 Disposition: Home, Self-Care 01 Condition: Good Clinical Impression: Thomas catheter problem Qualifiers: Encounter type: initial encounter Qualified Code(s): T83.9XXA - Unspecified complication of genitourinary prosthetic device, implant and graft, initial encounter - Discharge Information Instructions: Indwelling Urinary Catheter Care, Adult Referrals: Wei Page MD [Primary Care Provider] - Forms: ED Department Discharge Additional Instructions: Your labs were unremarkable aside from low magnesium. Your kidney function was good today. Your chest x-ray looks normal. Your Thomas catheter is leaking but appears to be functioning appropriately. We have placed you on our urology follow-up list and hopefully they will be able to see you before end november. I would still keep the appointment in [place] in case they are unable to see you before then. The following information is given to patients seen in the emergency department who are being discharged to home. This information is to outline your options for follow-up care. We provide all patients seen in our emergency department with a follow-up referral. The need for follow-up, as well as the timing and circumstances, are variable depending upon the specifics of your emergency department visit. If you don't have a primary care physician on staff, we will provide you with a referral. We always advise you to contact your personal physician following an emergency department visit to inform them of the circumstance of the visit and for follow-up with them and/or the need for any referrals to a consulting specialist. The emergency department will also refer you to a specialist when appropriate. This referral assures that you have the opportunity for follow-up care with a specialist. All of these measure are taken in an effort to provide you with optimal care, which includes your follow-up. Under all circumstances we always encourage you to contact your private physician who remains a resource for coordinating your care. When calling for follow-up care, please make the office aware that this follow-up is from your recent emergency room visit. If for any reason you are refused follow-up, please contact the [facility] Emergency Department at and asked to speak to the emergency department charge nurse. Please follow up with your primary care physician. If you do not have a primary care physician, see below: [facility] [address], [place] [phone] [facility] [address] [place], [place] [phone] [facility] - Pediatric [facility] [address] [place] [address] Sepsis Event Note (ED) - Evaluation Sepsis Screening Result: No Definite Risk - Focused Exam Vital Signs: Vital Signs Temp Pulse Resp BP Pulse Ox 11/18/20 14:07 97.6 F 85 17 110/71 98 - My Orders Last 24 Hours: My Active Orders 11/18/20 14:16 Sodium Chloride 0.9% [Saline Flush] 10 ml FLUSH ASDIRECTED PRN Sodium Chloride 0.9% [Saline Flush] 2.5 ml FLUSH ASDIRECTED PRN Saline Lock Insert [OM.PC] Stat 11/18/20 15:13 Magnesium Sulfate/Water [Magnesium Sulfate in Water 2 GM/50 ML] 2 gm Premix Bag 1 bag IV ONETIME - Assessment/Plan Last 24 Hours: My Active Orders 11/18/20 14:16 Sodium Chloride 0.9% [Saline Flush] 10 ml FLUSH ASDIRECTED PRN Sodium Chloride 0.9% [Saline Flush] 2.5 ml FLUSH ASDIRECTED PRN Saline Lock Insert [OM.PC] Stat 11/18/20 15:13 Magnesium Sulfate/Water [Magnesium Sulfate in Water 2 GM/50 ML] 2 gm Premix Bag 1 bag IV ONETIME
[2020-11-18] MEDS ORDERED: Sodium Chloride 0.9% 10 ML Syringe FLUSH PRN (14:16)
[2020-11-18] MEDS ORDERED: Sodium Chloride 0.9% 2.5 ML Syringe FLUSH PRN (14:16)
[2020-11-18] MEDS ORDERED: LORazepam 2 MG/ML SDV IVPUSH ONE (14:17)
[2020-11-18 15:02] LABS: BLOOD UREA NITROGEN,BUN 11 mg/dL (7.0-18.0); CHLORIDE,CL 104 mmol/L (98-107); GLUCOSE RANDOM 130 mg/dL (74-106); POTASSIUM,K 3.6 mmol/L (3.5-5.1); SODIUM,NA 138 mmol/L (136-148)
[2020-11-18] MEDS ORDERED: Magnesium Sulfate/Water 2 GM in Premix Bag 1 BAG IV ONE (15:13)
--- NOTE | 2020-11-18 15:22 | CR ---
INDICATION: Dizziness, dyspnea. TECHNIQUE: Portable AP chest radiograph. COMPARISON: 11/13/2020. FINDINGS: Low lung volumes with vascular crowding. No focal pulmonary opacity, pneumothorax, or appreciable pleural effusion. Unchanged cardiac and mediastinal contours. IMPRESSION: No acute cardiopulmonary findings. Dictated by Gaston Cox MD @ 11/18/2020 3:21:45 PM Dictated by: Gaston Cox MD @ 11/18/2020 15:21:49 (Electronically Signed)
[2020-11-19 07:40] VITALS: BP 128/66; PULSE 90
== END 2020-11-18 16:00 | disposition home or self-care (01) ==
LOC: MW.ED 13:21
DX: T83.038A Leakage of other urinary catheter, initial encounter (principal); E78.00 Pure hypercholesterolemia, unspecified; I10 Essential (primary) hypertension; E11.9 Type 2 diabetes mellitus without complications; E66.9 Obesity, unspecified; Z68.29 Body mass index [BMI] 29.0-29.9, adult; Z91.040 Latex allergy status; Z88.8 Allergy status to other drugs, medicaments and biological substances; Z88.1 Allergy status to other antibiotic agents; Z79.4 Long term (current) use of insulin
CPT/HCPCS: 36415; 71045; 80053; 83605; 83735; 84484; 85025; 93005; 96365; 96375; 99285; J2060; J3475; 93010; 99284

== ENCOUNTER 2020-11-20 14:44 | Emergency (ER) | payer MEDICARE, OTHER ==
--- NOTE | 2020-11-20 19:40 | EDM.PDOC ---
ED HPI GENERAL MEDICAL PROBLEM - General Chief Complaint: Genitourinary Problem Stated Complaint: CATHETER ISSUES Time Seen by Provider: 11/20/20 15:38 Source of Information: Reports: Patient History Limitations: Reports: No Limitations - History of Present Illness INITIAL COMMENTS - FREE TEXT/NARRATIVE: HISTORY AND PHYSICAL: History of present illness: Patient is a 70-year-old male presents to emergency department secondary indwelling urinary catheter not draining appropriately since this morning. Patient has an indwelling catheter secondary to urinary retention due to large prostate. Patient states that since having the Pride placed, he has been leaking around the Pride catheter but has also been leaking urine into the bag so was told that this was okay. Patient states that the bag has stopped draining and he is solely leaking around the catheter and is starting to feel like he needs to urinate and push to get urine out. Patient denies any other symptoms or concerns. Patient denies fever, chills, chest pain, shortness of breath, or cough. Denies headache, neck stiff ness, change in vision, syncope, or near syncope. Denies nausea, vomiting, abdominal pain, diarrhea, constipation, or dysuria. Has not noted any blood in urine or stool. Patient has been eating and drinking appropriately. Review of systems: As per history of present illness and below otherwise all systems reviewed and negative. Past medical history: As per history of present illness and as reviewed below otherwise noncontributory. Surgical history: As per history of present illness and as reviewed below otherwise noncontributory. Social history: See social history for further information Family history: As per history of present illness and as reviewed below otherwise non contributory. Physical exam: General: Patient is alert, oriented, and in no acute distress. Patient sitting comfortably on exam table. Vitals stable and reviewed by me. HEENT: Atraumatic, normocephalic, pupils equal and reactive bilaterally, negative for conjunctival pallor or scleral icterus, mucous membranes moist, TMs normal bilaterally, throat clear, neck supple, nontender, trachea midline. No drooling or trismus noted. No meningeal signs. No hot potato voice noted. Lungs: Clear to auscultation, breath sounds equal bilaterally, chest nontender. Heart: S1S2, regular rate and rhythm without overt murmur Abdomen: Soft, nondistended, nontender. Negative for masses or hepatosplenomegaly. Negative for costovertebral tenderness. Pelvis: Stable nontender. Genitourinary: Genitourinary exam performed by PA student Sean Wilson observed and supervised directly by me. No rashes, ulcers, scars, nodules, induration, discharge noted. 16 Taiwanese [address] catheter in place with noted urine leaking around catheter; bag not properly draining urine. Diffuse smegma noted around catheter site. Rectal: Deferred. Skin: Intact, warm, dry. No lesions or rashes noted. Extremities: Atraumatic, negative for cords or calf pain. Neurovascular unremarkable. Neuro: Awake, alert, oriented. Cranial nerves II through XII unremarkable. Cerebellum unremarkable. Motor and sensory unremarkable throughout. Exam nonfocal. Notes: Patient is a 70-year-old male who presents to the emergency department secondary his indwelling catheter not draining appropriately. On examination patient, he is vitally stable and well appearing on exam. Inspection of the catheter shows that his 16 [place] [address] catheter in place with smegma noted around the meatus and on the glans penis and urine noted not to be draining appropriately through the tube and into the collection bag draining around the catheter site. Bedside bladder scan shows bladder with 95 cc of urine with visualization of the Pride catheter. Tried repositioning the catheter without ability to drain. Discussed pulling out the catheter and inserting a larger pride catheter, patient agreeable. Patient noted to have an appointment with urologist in [place] in the middle of November but does have an appointment with his primary care provider in 2 days. Procedure: Bladder catheterization Permit: Bladder catheterization was discussed including the benefits and risks of the procedure including bleeding, infection, and injury. Discussed the alternatives with the patient. The patient's questions were answered and the patient agreed to the procedure. Indication: Current indwelling Pride catheter not draining, urinary retention Provider: Bladder catheterization performed by PA student Sean Wilson observed and supervised directly by me. Depression: Area was prepped and draped in a sterile fashion. The meatus and the glans penis were cleansed using Betadine. A 22 [place] Pride catheter was lubricated inserted into the urethral meatus and advanced into the bladder without difficulty. 10 cc of saline was injected into the bulb and the catheter was retracted until resistance was met. Urine began draining down the tube and filling the pride bag. Patient tolerated procedure well. Complications: None Estimated blood loss: None Disposition: Patient alert, oriented, and resting; breathing nonlabored; extremities neurovascularly intact; no leakage around catheter noted and urine draining appropriately. Signs and symptoms that were prompt return to the ED thoroughly discussed with patient. Discussed importance for follow-up with his primary care provider and urologist as scheduled. Voices understanding and is agreeable to plan of care. Denies any further questions or concerns at this time. Diagnostics: Bladder scan Therapeutics: 22 [place]ese Pride catheter Prescription: None Impression: Urinary indwelling catheter change required secondary to clogged pride Plan: Follow-up with primary care as discussed. Contact urology office and discuss emergency department visit today. Return to the emergency department as discussed. Definitive disposition and diagnosis as appropriate pending reevaluation and review of above. - Related Data Allergies Allergy/AdvReac Type Severity Reaction Status Date / Time atorvastatin calcium Allergy Hives Verified 11/20/20 16:15 [From Lipitor] cefazolin sodium [From Ancef] Allergy Hives Verified 11/20/20 16:15 latex Allergy Rash Verified 11/20/20 16:15 Home Meds: Home Meds Ascorbic Acid/Bioflavonoids [Vit C-Bioflavonoids SA] 1,000 mg PO QAM 06/25/14 [History] Aspirin [[place] Chewable Aspirin] 81 mg PO QAM 06/25/14 [History] Fenofibrate Nanocrystallized [Fenofibrate] 145 mg PO BEDTIME 06/25/14 [History] Fish Oil/[place]-3 Fatty Acids [Fish Oil] 1,200 mg PO QAM 06/25/14 [History] metFORMIN [Glucophage] 1,000 mg PO BID 06/25/14 [History] Multivitamin [Multivitamins] 1 tab PO DAILY 06/18/16 [History] Rosuvastatin Calcium 20 mg PO DAILY 06/18/16 [History] Finasteride [Proscar] 5 mg PO DAILY 09/28/20 [History] Insulin Lispro [Humalog] 0 unit SUBCUT TIDMEALS MDD 30 UNITS PER MEAL 09/28/20 [History] Tamsulosin HCl [Flomax] 0.8 mg PO BEDTIME 09/28/20 [History] Sertraline [Zoloft] 50 mg PO DAILY 11/02/20 [History] LORazepam [Ativan] 0.5 - 1 mg PO BID PRN 11/13/20 [History] Ondansetron [Zofran ODT] 4 mg SL Q6H PRN 11/13/20 [History] Ondansetron [Zofran ODT] 8 mg SL DAILY PRN 11/13/20 [History] Insulin Glarg,Human.Rec.Analog [Lantus] 10 units INJECT BEDTIME #0 11/16/20 [Rx] Lisinopril/Hydrochlorothiazide [Lisinopril-Hctz 20-12.5 mg Tab] 1 tab PO DAILY #0 11/16/20 [Rx] Past Medical History HEENT History: Reports: Impaired Vision Other HEENT History: wears glasses Cardiovascular History: Reports: High Cholesterol, Hypertension Respiratory History: Reports: Sleep Apnea Other Respiratory History: uses BPAP Gastrointestinal History: Reports: None Genitourinary History: Reports: None Musculoskeletal History: Reports: Back Pain, Chronic Neurological History: Reports: None Psychiatric History: Reports: Anxiety Endocrine/Metabolic History: Reports: Diabetes, Type II, Obesity/BMI 30+ 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 Hematologic History: Reports: Blood Transfusion(s) Other Hematologic History: blood transfusion following nose bleed at 10 yrs old Immunologic History: Reports: None Oncologic (Cancer) History: Reports: None Dermatologic History: Reports: None - Infectious Disease History Infectious Disease History: Reports: Chicken Pox, Measles - Past Surgical History Head Surgeries/Procedures: Reports: None HEENT Surgical History: Reports: Cataract Surgery, Tonsillectomy Cardiovascular Surgical History: Reports: None Respiratory Surgical History: Reports: None GI Surgical History: Reports: None Male Surgical History: Reports: None Musculoskeletal Surgical History: Reports: Arthroscopic Knee Dermatological Surgical History: Reports: None Social & Family History - Family History Family Medical History: No Pertinent Family History - Tobacco Use Tobacco Use Status *Q: Never Tobacco User - Caffeine Use Caffeine Use: Reports: None - Recreational Drug Use Recreational Drug Use: No ED ROS GENERAL - Review of Systems Review Of Systems: Comprehensive ROS is negative, except as noted in HPI. ED EXAM, GENERAL - Physical Exam Exam: See Below (see dictation) Course - Vital Signs Last Recorded V/S: Last Vital Signs Temp 95.6 F L 11/20/20 16:15 Pulse 97 11/20/20 17:14 Resp 18 11/20/20 17:14 BP 115/70 11/20/20 17:14 Pulse Ox 95 05/31/21 17:14 Departure - Departure Time of Disposition: 19:40 Disposition: Home, Self-Care 01 Clinical Impression: Urinary catheter (Pride) change required - Discharge Information Referrals: Wei Page MD [Primary Care Provider] - Forms: ED Department Discharge Additional Instructions: The following information is given to patients seen in the emergency department who are being discharged to home. This information is to outline your options for follow-up care. We provide all patients seen in our emergency department wit h a follow-up referral. The need for follow-up, as well as the timing and circumstances, are variable depending upon the specifics of your emergency department visit. If you don't have a primary care physician on staff, we will provide you with a referral. We always advise you to contact your personal physician following an emergency department visit to inform them of the circumstance of the visit and for follow-up with them and/or the need for any referrals to a consulting specialist. The emergency department will also refer you to a specialist when appropriate. This referral assures that you have the opportunity for follow-up care with a specialist. All of these measure are taken in an effort to provide you with optimal care, which includes your follow-up. Under all circumstances we always encourage you to contact your private physician who remains a resource for coordinating your care. When calling for follow-up care, please make the office aware that this follow-up is from your recent emergency room visit. If for any reason you are refused follow-up, please contact the [facility] Emergency Department at and asked to speak to the emergency department charge nurse. [facility] [address] [place] [id number] [address] [id number] 1. Follow-up with your primary care provider and the urologist as scheduled and as discussed. Return to the ED as needed and as discussed. Sepsis Event Note (ED) - Evaluation Sepsis Screening Result: No Definite Risk - Focused Exam Vital Signs: Vital Signs Temp Pulse Resp BP Pulse Ox 11/20/20 17:14 97 18 115/70 95 11/20/20 16:15 95.6 F L 84 18 116/71 97
[2020-11-21 00:47] VITALS: BP 90/62; PULSE 112
== END 2020-11-20 19:52 | disposition home or self-care (01) ==
LOC: MW.ED 14:44
DX: T83.098A Other mechanical complication of other urinary catheter, initial encounter (principal); E78.00 Pure hypercholesterolemia, unspecified; I10 Essential (primary) hypertension; E11.9 Type 2 diabetes mellitus without complications; E66.9 Obesity, unspecified; Z68.29 Body mass index [BMI] 29.0-29.9, adult; Z88.8 Allergy status to other drugs, medicaments and biological substances; Z88.1 Allergy status to other antibiotic agents; Z91.040 Latex allergy status; Z79.4 Long term (current) use of insulin; Z79.82 Long term (current) use of aspirin; Z79.899 Other long term (current) drug therapy
CPT/HCPCS: 51702; 99283; 99283-25

== ENCOUNTER 2021-05-03 01:23 | Emergency (ER) | payer MEDICARE, OTHER ==
[2021-05-03 01:41] VITALS: BP 127/62; PULSE 94
[2021-05-03] MEDS ORDERED: Lidocaine 5% 700 MG Patch TRDERM ONE (02:17)
[2021-05-03] MEDS ORDERED: Cyclobenzaprine 10 MG Tab PO ONE (02:17)
--- NOTE | 2021-05-03 02:32 | EDM.PDOC ---
ED HPI GENERAL MEDICAL PROBLEM - General Chief Complaint: Back Pain or Injury Stated Complaint: THREW HIS BACK OUT Time Seen by Provider: 05/03/21 01:56 - History of Present Illness INITIAL COMMENTS - FREE TEXT/NARRATIVE: CHIEF COMPLAINT(S): "I threw my back out." HISTORY OF PRESENT ILLNESS: This is a 70-year-old man on with a past medical history of diabetes mellitus, hyperlipidemia, hypertension who comes to the emergency department with a chief complaint of "I threw my back out." Patient states that he just got up from sitting and felt a severe lower back pain on the right side. He denies any radiation of this pain. He states this pain is constant. He rates his pain as 10 out of 10. He denies any radiation of the pain, numbness, tingling, weakness. The pain is exacerbated by touching it or moving it. He denies any relieving factors. He states that he was not able to take any Tylenol or ibuprofen secondary to the pain. He denies any bowel incontinence, urinary incontinence or saddle anesthesia. He denies any IV drug use. He denies any severe trauma. He denies any other symptoms. REVIEW OF SYSTEMS: Constitutional: Denies fever, chills. Eyes: Denies eye pain Ears, Nose, Mouth, & Throat: Denies earache Cardiovascular: Denies chest pain Respiratory: Denies shortness of breath Gastrointestinal: Denies Nausea, vomiting, diarrhea, hematochezia. Genitourinary: Denies hematuria Skin:Denies a rash MSK: Positive for right lower back pain Neurological: Denies blurred vision, numbness, tingling, weakness Psychiatric: Denies depression PAST MEDICAL HISTORY: As per history of present illness and as reviewed below otherwise noncontributory. SURGICAL HISTORY: As per history of present illness and as reviewed below otherwise noncontributory. SOCIAL HISTORY: As per history of present illness and as reviewed below otherwise noncontributory. FAMILY HISTORY: As per history of present illness and as reviewed below otherwise noncontributory. EXAMINATION OF ORGAN SYSTEMS/BODY AREAS: Constitutional: Blood pressure is 127/62, heart rate 94, respiratory rate 18 with an oxygen saturation 95% on room air. Temperature 36.2 General: Well-appearing elderly man who is in no acute distress Psychiatric: Appropriate mood and affect. Eyes: No scleral icterus or conjunctival erythema ENMT: Moist mucous membranes. No pharyngeal erythema Cardiovascular: Regular, rate, and rhythm. No gallops, murmurs, or rubs. Bilateral upper extremity pulses symmetric and intact. No peripheral edema. No JVD. Respiratory: Lungs clear to auscultation bilaterally. No wheezes, rales, or rhonchi. Gastrointestinal: Soft, non-tender, non-distended. Normoactive bowel sounds Genitourinary: No suprapubic tenderness Musculoskeletal: No midline cervical, thoracic, or lumbar tenderness. Negative straight leg test. Strength and sensation grossly intact in the lower extremities bilaterally. There is paraspinal lumbar tenderness on the right. Skin: No lesions or abrasions. Neurological: Alert, GCS 15 strength and sensation grossly intact in upper and lower extremities bilaterally. MEDICAL DECISION MAKING AND COURSE IN THE ED WITH INTERPRETATION/REVIEW OF DIAGNOSTIC STUDIES: This is a 70-year-old male with a past medical history of diabetes, hypertension who comes to the emergency department with what appears to be acute right lower lumbar strain. At this time we will provide the patient with Flexeril and a lidocaine patch. Patient has no red flag symptoms. The patient cannot take ibuprofen per the patient. Therefore I did discuss symptomatic treatment with the patient at home. He was given strict return precautions. The patient was amenable discharge and had no further questions. DISPOSITION: The patient was discharged home in stable condition. The patient will follow up with primary care physician in 3 to 5 days for reevaluation CONDITION: Fair PROCEDURES: None FINAL IMPRESSION(S)/DIAGNOSES: 1. Acute lumbar strain Dakotah Arenas M.D. back Pain Score (Numeric/FACES): 10 - Related Data Allergies Allergy/AdvReac Type Severity Reaction Status Date / Time atorvastatin calcium Allergy Hives Verified 05/03/21 01:41 [From Lipitor] cefazolin sodium [From Ancef] Allergy Hives Verified 05/03/21 01:41 latex Allergy Rash Verified 05/03/21 01:41 Home Meds: Home Meds Ascorbic Acid/Bioflavonoids [Vit C-Bioflavonoids ] 1,000 mg PO QAM 06/25/14 [History] Aspirin [[place] Chewable Aspirin] 81 mg PO QAM 06/25/14 [History] Fenofibrate Nanocrystallized [Fenofibrate] 145 mg PO BEDTIME 06/25/14 [History] Fish Oil/[place]-3 Fatty Acids [Fish Oil] 1,200 mg PO QAM 06/25/14 [History] metFORMIN [Glucophage] 1,000 mg PO BID 06/25/14 [History] Multivitamin [Multivitamins] 1 tab PO DAILY 06/18/16 [History] Rosuvastatin Calcium 20 mg PO DAILY 06/18/16 [History] Finasteride [Proscar] 5 mg PO DAILY 09/28/20 [History] Insulin Lispro [Humalog] 0 unit SUBCUT TIDMEALS MDD 30 UNITS PER MEAL 09/28/20 [History] Tamsulosin HCl [Flomax] 0.8 mg PO BEDTIME 09/28/20 [History] Sertraline [Zoloft] 50 mg PO DAILY 11/02/20 [History] LORazepam [Ativan] 0.5 - 1 mg PO BID PRN 11/13/20 [History] Ondansetron [Zofran ODT] 4 mg SL Q6H PRN 11/13/20 [History] Ondansetron [Zofran ODT] 8 mg SL DAILY PRN 11/13/20 [History] Insulin Glarg,Human.Rec.Analog [Lantus] 10 units INJECT BEDTIME #0 11/16/20 [Rx] Lisinopril/Hydrochlorothiazide [Lisinopril-Hctz 20-12.5 mg Tab] 1 tab PO DAILY #0 11/16/20 [Rx] Acetaminophen [Tylenol Extra Strength] 1,000 mg PO Q6HR #56 tablet 05/03/21 [Rx] Lidocaine 5% [Lidoderm 5%] 1 patch TOP DAILY #7 patch 05/03/21 [Rx] methocarbamoL [Methocarbamol] 1,500 mg PO TID #42 tablet 05/03/21 [Rx] Past Medical History HEENT History: Reports: Impaired Vision Other HEENT History: wears glasses Cardiovascular History: Reports: High Cholesterol, Hypertension Respiratory History: Reports: Sleep Apnea Other Respiratory History: uses BPAP Gastrointestinal History: Reports: None Genitourinary History: Reports: None Musculoskeletal History: Reports: Back Pain, Chronic Neurological History: Reports: None Psychiatric History: Reports: Anxiety Endocrine/Metabolic History: Reports: Diabetes, Type II, Obesity/BMI 30+ Insulin Pump Model and Brake Linings Coater: N/A Hematologic History: Reports: Blood Transfusion(s) Other Hematologic History: blood transfusion following nose bleed at 10 yrs old Immunologic History: Reports: None Oncologic (Cancer) History: Reports: None Dermatologic History: Reports: None - Infectious Disease History Infectious Disease History: Reports: Chicken Pox, Measles - Past Surgical History Head Surgeries/Procedures: Reports: None HEENT Surgical History: Reports: Cataract Surgery, Tonsillectomy Cardiovascular Surgical History: Reports: None Respiratory Surgical History: Reports: None GI Surgical History: Reports: None Male Surgical History: Reports: None Musculoskeletal Surgical History: Reports: Arthroscopic Knee Dermatological Surgical History: Reports: None Social & Family History - Family History Family Medical History: No Pertinent Family History - Tobacco Use Tobacco Use Status *Q: Never Tobacco User - Caffeine Use Caffeine Use: Reports: None - Recreational Drug Use Recreational Drug Use: No ED ROS GENERAL - Review of Systems Review Of Systems: See Below ED EXAM, GENERAL - Physical Exam Exam: See Below Course - Vital Signs Last Recorded V/S: Last Vital Signs Temp 36.2 C 05/03/21 01:37 Pulse 94 05/03/21 01:37 Resp 18 05/03/21 01:37 BP 127/62 05/03/21 01:37 Pulse Ox 95 05/03/21 01:37 - Orders/Labs/Meds Meds: Medications Discontinued Medications Generic Name Dose Route Start Last Admin Trade Name Lynda PRN Reason Stop Dose Admin Cyclobenzaprine HCl 10 mg 05/03/21 02:17 05/03/21 02:28 Cyclobenzaprine 10 Mg Tab PO 05/03/21 02:18 10 mg ONETIME ONE Administration Lidocaine 700 mg 05/03/21 02:17 05/03/21 02:29 Lidocaine 5% 700 Mg Patch TRDERM 05/03/21 02:18 700 mg ONETIME ONE Administration Departure - Departure Time of Disposition: 02:31 Disposition: Home, Self-Care 01 Condition: Fair Clinical Impression: Lumbar strain - Discharge Information *PRESCRIPTION DRUG MONITORING PROGRAM REVIEWED*: No *COPY OF PRESCRIPTION DRUG MONITORING REPORT IN PATIENT ERNESTO: No Prescriptions: Lidocaine 5% [Lidoderm 5%] 1 patch TOP DAILY #7 patch methocarbamoL [Methocarbamol] 1,500 mg PO TID #42 tablet Acetaminophen [Tylenol Extra Strength] 1,000 mg PO Q6HR #56 tablet Instructions: Lumbar Strain, Back Injury Prevention Referrals: Wei Page MD [Primary Care Provider] - Forms: ED Department Discharge Additional Instructions: Your evaluated today on an emergent basis. At this time I do not believe any imaging is indicated. At this time I do recommend that you use Tylenol, lidocaine patch, Robaxin, alternating with heat and ice to the affected area and follow-up with your primary care physician. As discussed if you have any worsening pain, defecate on yourself, urinate on yourself or you feel decreased sensation when you wipe after using the restroom I would like you to return to the emergency department. [facility] [address] [place], [place] [id number] [place] [address] The patient is informed of any results of their evaluation and diagnostic workup and all questions are answered. They are given discharge instructions and return precautions. The patient is stable for discharge. The patient states they understand and agree with the plan and that they will return if their symptoms get worse or if they have any new concerns. The following information is given to patients seen in the emergency department who are being discharged to home. This information is to outline your options for follow-up care. We provide all patients seen in our emergency department with a follow-up referral. The need for follow-up, as well as the timing and circumstances, are variable depending upon the specifics of your emergency department visit. If you don't have a primary care physician on staff, we will provide you with a referral. We always advise you to contact your personal physician following an emergency department visit to inform them of the circumstance of the visit and for follow-up with them and/or the need for any referrals to a consulting specialist. The emergency department will also refer you to a specialist when appropriate. This referral assures that you have the opportunity for follow-up care with a specialist. All of these measure are taken in an effort to provide you with optimal care, which includes your follow-up. Under all circumstances we always encourage you to contact your private physician who remains a resource for coordinating your care. When calling for follow-up care, please make the office aware that this follow-up is from your recent emergency room visit. If for any reason you are refused follow-up, please contact the [facility] Emergency Department at and asked to speak to the emergency department charge nurse. Sepsis Event Note (ED) - Evaluation Sepsis Screening Result: No Definite Risk
== END 2021-05-03 02:45 | disposition home or self-care (01) ==
LOC: MW.ED 01:23
DX: S39.012A Strain of muscle, fascia and tendon of lower back, initial encounter (principal); E78.00 Pure hypercholesterolemia, unspecified; I10 Essential (primary) hypertension; E11.9 Type 2 diabetes mellitus without complications; E66.9 Obesity, unspecified; Z68.34 Body mass index [BMI] 34.0-34.9, adult; Z88.8 Allergy status to other drugs, medicaments and biological substances; Z88.1 Allergy status to other antibiotic agents; Z91.040 Latex allergy status; Z79.82 Long term (current) use of aspirin; Z79.4 Long term (current) use of insulin; Z79.899 Other long term (current) drug therapy; X58.XXXA Exposure to other specified factors, initial encounter
CPT/HCPCS: 99283; A9270

== ENCOUNTER 2021-09-19 23:41 | Emergency (ER) | payer MEDICARE, OTHER ==
[2021-09-20] MEDS ORDERED: Sodium Chloride 0.9% 10 ML Syringe FLUSH PRN (00:22)
[2021-09-20] MEDS ORDERED: Sodium Chloride 0.9% 2.5 ML Syringe FLUSH PRN (00:22)
[2021-09-20] MEDS ORDERED: methylPREDNISolone Sodium Succinate 125 MG/2 ML SDV IVPUSH ONE (00:22)
[2021-09-20] MEDS ORDERED: Albuterol/Ipratropium 3.0-0.5 MG/3 ML Neb Soln NEB ONE ×2 (00:22→01:34)
[2021-09-20 01:19] LABS: CORONAVIRUS COVID-19 NAA NEGATIVE (NEGATIVE); INFLUENZA A NAA NEGATIVE (NEGATIVE); INFLUENZA B NAA NEGATIVE (NEGATIVE)
[2021-09-20 01:46] LABS: BLOOD UREA NITROGEN,BUN 22 mg/dL (7.0-18.0); CARBON DIOXIDE,CO2 25.5 mmol/L (21.0-32.0); CHLORIDE,CL 101 mmol/L (98-107); GLUCOSE RANDOM 236 mg/dL (74-106); POTASSIUM,K 3.8 mmol/L (3.5-5.1); SODIUM,NA 136 mmol/L (136-148)
[2021-09-20 02:25] VITALS: BP 134/71; PULSE 101
[2021-09-20] MEDS ORDERED: Azithromycin 250 MG Tab PO ONE (02:25)
== END 2021-09-20 02:40 | disposition home or self-care (01) ==
LOC: MW.ED 23:41
DX: J40 Bronchitis, not specified as acute or chronic (principal); J32.9 Chronic sinusitis, unspecified; E78.00 Pure hypercholesterolemia, unspecified; I10 Essential (primary) hypertension; E11.9 Type 2 diabetes mellitus without complications; E66.9 Obesity, unspecified; Z68.33 Body mass index [BMI] 33.0-33.9, adult; Z91.040 Latex allergy status; Z88.8 Allergy status to other drugs, medicaments and biological substances; Z79.82 Long term (current) use of aspirin; Z79.4 Long term (current) use of insulin; Z79.899 Other long term (current) drug therapy; Z20.822 Contact with and (suspected) exposure to COVID-19
CPT/HCPCS: 0240U; 36415; 71045; 80053; 83880; 84484; 85025; 93005; 94640; 96374; 99285; A9270; J2930; 93010; 99284; J7620-GY

== ENCOUNTER 2022-01-26 00:06 | Emergency (ER) | payer MEDICARE, OTHER ==
[2022-01-26] MEDS ORDERED: Tetracaine HCl/PF 0.5% 4 ML Bottle EYEBOTH STA (00:09)
[2022-01-26 01:09] VITALS: BP 125/74; PULSE 88
== END 2022-01-26 01:07 | disposition home or self-care (01) ==
LOC: MW.ED 00:06
DX: H57.11 Ocular pain, right eye (principal); E78.00 Pure hypercholesterolemia, unspecified; I10 Essential (primary) hypertension; E11.9 Type 2 diabetes mellitus without complications; E66.9 Obesity, unspecified; Z68.37 Body mass index [BMI] 37.0-37.9, adult; Z91.040 Latex allergy status; Z88.1 Allergy status to other antibiotic agents; Z88.8 Allergy status to other drugs, medicaments and biological substances; Z79.82 Long term (current) use of aspirin; Z79.4 Long term (current) use of insulin; Z79.899 Other long term (current) drug therapy
CPT/HCPCS: 99283

== ENCOUNTER 2023-02-15 05:51 | Emergency (ER) | payer MEDICARE, OTHER ==
[2023-02-15] MEDS ORDERED: Cetirizine 10 MG Tab PO ONE (06:01)
[2023-02-15] MEDS ORDERED: Famotidine 20 MG Tab PO ONE (06:01)
[2023-02-15 09:40] VITALS: BP 132/81; PULSE 97
== END 2023-02-15 09:15 | disposition home or self-care (01) ==
LOC: MW.ED 05:51
DX: R21 Rash and other nonspecific skin eruption (principal); E66.9 Obesity, unspecified; I10 Essential (primary) hypertension; Z79.82 Long term (current) use of aspirin; Z88.1 Allergy status to other antibiotic agents; Z91.040 Latex allergy status; Z88.8 Allergy status to other drugs, medicaments and biological substances; Z79.4 Long term (current) use of insulin; Z68.34 Body mass index [BMI] 34.0-34.9, adult
CPT/HCPCS: 99283; A9270

== ENCOUNTER 2023-04-06 21:44 | Emergency (ER) | payer MEDICARE, OTHER ==
[2023-04-06 23:13] LABS: CORONAVIRUS COVID-19 NAA NEGATIVE (NEGATIVE); INFLUENZA A NAA NEGATIVE (NEGATIVE); INFLUENZA B NAA NEGATIVE (NEGATIVE); RESPIRATORY SYNCYTIAL VIR NAA NEGATIVE (NEGATIVE)
[2023-04-06] MEDS ORDERED: Benzonatate 100 MG Cap PO ONE (23:52)
[2023-04-06 23:59] VITALS: BP 138/87; PULSE 101
== END 2023-04-06 23:58 | disposition home or self-care (01) ==
LOC: MW.ED 21:44
DX: B34.9 Viral infection, unspecified (principal); E78.00 Pure hypercholesterolemia, unspecified; I10 Essential (primary) hypertension; G47.30 Sleep apnea, unspecified; E11.9 Type 2 diabetes mellitus without complications; E66.9 Obesity, unspecified; Z68.33 Body mass index [BMI] 33.0-33.9, adult; Z20.822 Contact with and (suspected) exposure to COVID-19; Z91.040 Latex allergy status; Z88.1 Allergy status to other antibiotic agents; Z88.8 Allergy status to other drugs, medicaments and biological substances; Z79.82 Long term (current) use of aspirin; Z79.4 Long term (current) use of insulin; Z79.899 Other long term (current) drug therapy
CPT/HCPCS: 0241U; 87651; 99283; A9270